=== PATIENT | male | born 1965 | race Caucasian/White ===

== ENCOUNTER 2016-07-07 21:36 | Inpatient (IN) ==
[2016-07-07] MEDS ORDERED: Ipratropium/Albuterol Neb 3 ML IH ONE (21:50)
[2016-07-07 22:12] LABS: Basophils # 0.1 K/mcL (0.0-0.2); Eosinophils # 0.4 K/mcL (0.0-0.6); Eosinophils % 7.3 %; Hematocrit 46.3 % (37.5-50.1); Hemoglobin 16.2 g/dL (12.9-16.9); Immature Granulocytes % 0.2 % (0-4); Lymphocytes # 1.5 K/mcL (0.6-4.6); Lymphocytes % 26.3 %; Mean Corpuscular Hemoglobin 32.1 pg (28.0-33.3); Mean Corpuscular Volume 91.9 fL (83.0-100.0); Monocytes # 0.9 K/mcL (0.0-1.3); Monocytes % 16.2 %; Neutrophils # 2.7 K/mcL (1.6-8.9); Platelet Count 212 K/mcL (140-400); Red Blood Count 5.04 M/mcL (4.19-5.50); Red Cell Distribution Width 13.8 % (11.5-14.5)
[2016-07-07 22:21] LABS: BUN/Creatinine Ratio 4 (6-26); Blood Urea Nitrogen 2 mg/dL (8-26); Calcium 8.2 mg/dL (8.6-10.8); Carbon Dioxide 30 mEq/L (19-29); Chloride 86 mEq/L (98-109); Glucose 76 mg/dL (70-99); Osmolality,Calculated 261 (280-300); Potassium 2.6 mEq/L (3.5-4.5); Sodium 128 mEq/L (136-145); eGFR For African Americans > 60 (> 60); eGFR For Non-African Americans > 60 (> 60)
--- NOTE | 2016-07-07 22:31 | Emergency Department Note ---
Disposition Clinical Impression: Acute exacerbation of chronic obstructive airways disease, Lung cancer Disposition: Admitted As Inpatient Condition: Good Time of Disposition: 23:52 General Adult HPI - General Chief complaint: ED Shortness of Breath/Dyspnea Stated complaint: ANA Time Seen by Provider: 07/07/16 21:38 Source: patient Nursing Notes Reviewed: Yes Vital Signs Reviewed: Yes - History of Present Illness HPI Narrative: Male patient reporting a 2 week history of shortness of breath. States that he does have a cough but has had this cough for approximately 2 months. Does have a history of lung cancer. Last chemotherapy was unknown either 2 weeks or 1 month ago. He denies any productivity to his cough. He denies any fevers. He states he does take nebulizers and albuterol inhalers at home with no relief of the symptoms. Pain Scale: 0 - Related Data Home Medications Medication Instructions Recorded Confirmed Furosemide [Lasix] 20 mg PO DAILY 07/07/16 07/07/16 Loratadine [Allergy Relief] 10 mg PO DAILY 07/07/16 07/07/16 Prochlorperazine Maleate 10 mg PO Q8HR 07/07/16 07/07/16 [Compazine] Previous Rx's Medication Instructions Recorded Lactose-Reduced Food [Ensure Plus] 1 bottle PO TID #90 can 03/04/16 Sennosides [Senna] 2 tab PO DAILY #60 tablet 03/11/16 Lidocaine/Prilocaine CREAM [Emla] 5 gm TP DAILY #1 tube 03/20/16 Docusate [Colace] 100 mg PO BID #60 capsule 04/01/16 Pegfilgrastim [Neulasta (For 6 mg SQ ONCE #1 syringe 04/11/16 Outpatient Infusion)] Sodium Chloride 2 gm PO DAILY #60 tablet 05/01/16 Budesonide/Formoterol 80/4.5 1 puff IH BIDR 30 Days 06/23/16 [Symbicort 80/4.5] Ipratropium/Albuterol Neb [Duoneb] 3 ml IH Q6HR PRN 30 Days 06/23/16 Morphine Sulfate [Morphine Sulfate 30 mg PO BID #60 cpmp.24hr 06/23/16 ER] Ondansetron [Zofran] 4 mg PO Q8HR #90 tablet 06/23/16 Albuterol Sulfate [Albuterol 1 puff IH Q4H PRN #1 puff 06/26/16 Inhaler] Oxycodone HCl 15 mg PO Q4H PRN #90 tablet 07/03/16 Zolpidem [Ambien] 10 mg PO HS #30 tablet 07/03/16 Allergies Allergy/AdvReac Type Severity Reaction Status Date / Time No Known Allergies Allergy Verified 12/23/15 16:06 Review of Systems: Patient denies any fevers. He complains of shortness of breath for 2 weeks. He reports that he does have cough and as well as right-sided chest pain. He states he always has chest pain. He denies any fevers. He denies any rhinorrhea or sore throat. Denies any abdominal pain. He reports chronic nausea. He denies any vomiting or diarrhea. He denies any swelling in his extremities. He denies any pain in his calves. All systems ED: reviewed and negative except as stated. Past Medical History - Past Medical History Attestation: Yes The following information was validated with the patient. Source: patient Medical history: Reports: arthritis, cancer, COPD, other Surgical history: Reports: other Psychiatric history: Reports: no psych history - Social History Smoking Status: Current every day smoker Smokeless Tobacco Status: No Alcohol use: Reports: occasionally Drug use: Reports: none Physical Exam Patient appears in mild respiratory distress. His head is normocephalic atraumatic. Mucous membranes are moist. He has no rhinorrhea. There is no tonsillar exudates swelling or erythema. He has no occipital or supraclavicular lymphadenopathy or thyromegaly. He has right-sided cervical lymphadenopathy. He is complaining of a right-sided chest pain. His heart sounds are normal. His left lung sounds are diminished with no sounds heard in his right upper lobe And a faint wheeze heard in his distal lung. Right lung sounds are clear. He states this is chronic. He is also complaining of shortness of breath and a nonproductive cough is been going on for 2 weeks. Nauseated and is chronically nauseated. His abdomen is soft and nontender. There is no organomegaly. He has no extremity swelling. He denies any calf pain. He has good pedal pulses bilaterally. - General General appearance: alert, in no apparent distress - Head Head exam: atraumatic, normocephalic, normal inspection - Eye Eye exam: Present: normal appearance, PERRL, EOMI Course Course Narrative: Patient complains of shortness of breath. He does have diminished left lung rich. I do hear scant wheezing in his left lower lobe. Patient is a high risk for PE due to his history of lung cancer. I am concerned for this due to his decreased left lung sounds as well as no improvement with his DuoNeb and unremarkable chest x-ray. Patient denies any fevers. He states his cough is not productive. He states he has been having shortness of breath for about 2 weeks. He states this chest pain is constant is on the right side of his chest and is chronic. He states this has been going on for several months. Patient is a cancer patient has been receiving chemotherapy. He is not on any anticoagulation. We will do basic lab work as well as a CTA of his chest. He appears short of breath while he is sitting in bed. He does not generally wear oxygen at home. - Reevaluation(s) Reevaluation #1: Patient states it is time for his nightly oxycodone. He has brought his medication. Nursing staff will give him his nighttime oxycodone medication from his pill bottle. Time: 22:31 Reevaluation #2: Patient's CTA of chest showed lymphadenopathy that is occluding his left lower bronchus. We will admit patient. Time: 23:00 - Consultations Consultation #1: Spoke with Dr Moffett. She is agreeable that the Pt needs admitted and states that they will see him tomorrow. She is suggesting the Pt recieve prednisone. I agree with this and will order. Time: 23:41 Consultation #2: Dr Kendrick accepted Pt in stable condition. He is requesting the Pt recieve 60mg potassium by mouth. Time: 23:50 Vital Signs Temperature 98.7 F 07/07/16 21:38 Pulse Rate 88 07/07/16 21:38 Respiratory Rate 18 07/07/16 21:38 Blood Pressure 148/111 07/07/16 21:38 O2 Sat by Pulse Oximetry 98 07/07/16 21:38 Temperature 0 F L 07/08/16 03:39 Pulse Rate 67 07/08/16 02:25 Respiratory Rate 16 07/08/16 03:39 Blood Pressure 124/92 07/08/16 03:39 O2 Sat by Pulse Oximetry 92 L 07/08/16 02:25 Oxygen Delivery Oxygen Delivery Nasal Cannula Medical Decision Making - Medical Records Medical records reviewed: Yes I reviewed the patient's medical records. - Lab Data Lab results reviewed: Yes I reviewed the patient's lab results. Result diagrams: 07/07/16 22:03 07/07/16 22:03 Lab Results 07/07/16 07/07/16 07/07/16 Range/Units 22:03 22:03 22:03 WBC 5.5 (4.3-11.1) K/mcL RBC 5.04 (4.19-5.50) M/mcL Hgb 16.2 (12.9-16.9) g/dL Hct 46.3 (37.5-50.1) % MCV 91.9 (83.0-100.0) fL MCH 32.1 (28.0-33.3) pg MCHC 35.0 (31.6-35.5) g/dL RDW 13.8 (11.5-14.5) % Plt Count 212 (140-400) K/mcL MPV 8.0 L (9.4-12.4) fL Immature Gran % 0.2 (0-4) % Seg Neutrophils % 48.0 % Lymphocytes % 26.3 % Monocytes % 16.2 % Eosinophils % 7.3 % Basophils % 2.0 % Neutrophils # 2.7 (1.6-8.9) K/mcL Lymphocytes # 1.5 (0.6-4.6) K/mcL Monocytes # 0.9 (0.0-1.3) K/mcL Eosinophils # 0.4 (0.0-0.6) K/mcL Basophils # 0.1 (0.0-0.2) K/mcL Sodium 128 L (136-145) mEq/L Potassium 2.6 L (3.5-4.5) mEq/L Chloride 86 L (98-109) mEq/L Carbon Dioxide 30 H (19-29) mEq/L BUN 2 L (8-26) mg/dL Creatinine 0.57 L (0.72-1.25) mg/dL Est GFR ( Amer) > 60 (> 60) Est GFR (Non-Af Amer) > 60 (> 60) BUN/Creatinine Ratio 4 L (6-26) Glucose 76 (70-99) mg/dL Calculated Osmolality 261 L (280-300) Calcium 8.2 L (8.6-10.8) mg/dL Magnesium (1.6-2.6) mg/dL Troponin I 0.00 (0-0.03) ng/mL 07/07/16 Range/Units 22:03 WBC (4.3-11.1) K/mcL RBC (4.19-5.50) M/mcL Hgb (12.9-16.9) g/dL Hct (37.5-50.1) % MCV (83.0-100.0) fL MCH (28.0-33.3) pg MCHC (31.6-35.5) g/dL RDW (11.5-14.5) % Plt Count (140-400) K/mcL MPV (9.4-12.4) fL Immature Gran % (0-4) % Seg Neutrophils % % Lymphocytes % % Monocytes % % Eosinophils % % Basophils % % Neutrophils # (1.6-8.9) K/mcL Lymphocytes # (0.6-4.6) K/mcL Monocytes # (0.0-1.3) K/mcL Eosinophils # (0.0-0.6) K/mcL Basophils # (0.0-0.2) K/mcL Sodium (136-145) mEq/L Potassium (3.5-4.5) mEq/L Chloride (98-109) mEq/L Carbon Dioxide (19-29) mEq/L BUN (8-26) mg/dL Creatinine (0.72-1.25) mg/dL Est GFR ( Amer) (> 60) Est GFR (Non-Af Amer) (> 60) BUN/Creatinine Ratio (6-26) Glucose (70-99) mg/dL Calculated Osmolality (280-300) Calcium (8.6-10.8) mg/dL Magnesium 1.5 L (1.6-2.6) mg/dL Troponin I (0-0.03) ng/mL Pt K an d mag are low. We will replace. - Radiology Data Radiology results reviewed: Yes I reviewed the patient's radiology results. - EKG Data EKG #1 EKG attestation: Yes I reviewed and interpreted this EKG. EKG results narrative: Normal sinus rhythm and rate is 74. AK interval is 191. QRS duration is 96. QT is 396. QTC is 429. He does have new inversion of his T-wave in V2. This is the only significant change from prior EKG dated 01/16/2016. Attestation Statement - Attestation Attestation: For this encounter, I have reviewed the resident, PLUMBING MANAGER, or PA documentation, treatment plan, and medical decision making; and I have had face to face time with this patient. 21-year-old male presents with difficulty in breathing which has been increasing over the past 2 weeks. History of metastatic lung cancer and has had similar episodes of difficulty breathing in the past. Patient has a history of COPD and has been using his inhaler more often at home. Patient denies fever, chills, nausea, vomiting, diarrhea. Patient has chest pain to the left lateral chest which is chronic however he does state that it has become worse than normal. On physical exam the patient had significantly decreased breath sounds to the left upper and lower lungs. Patient's difficulty in breathing improved mildly after breathing treatment. CT of the abdomen shows compression of the left bronchus from mass which explains his decreased breath sounds. Patient will be admitted to the hospital for further care and evaluation of likely COPD exacerbation and evaluation of his worsening cancer.
[2016-07-07] MEDS ORDERED: Magnesium Sulfate 1 GM in D5% in Water 100 ML IVPB ONE (23:22)
[2016-07-07] MEDS ORDERED: predniSONE 20 MG TABLET PO ONE (23:40)
[2016-07-07] MEDS ORDERED: Potassium Chloride Elixir 20 MEQ/15 ML UDC PO STA (23:49)
[2016-07-08] MEDS ORDERED: Albuterol 2.5 MG/3 ML NEBULIZER IH PRN (01:00)
[2016-07-08] MEDS ORDERED: Ondansetron 4 MG/2 ML VIAL IVP PRN (01:01)
[2016-07-08] MEDS ORDERED: Naloxone 0.4 MG/ML INJ IVP PRN (01:01)
--- NOTE | 2016-07-08 04:01 | Internal Med History&Physical ---
Date of Encounter: 07/08/16 Time of Encounter: 00:45 Internal Medicine - H&P: HPI Chief complaint: SOB for couple of weeks. Admitted From: Emergency Dept Plans for Post Hospital Care: Home History of present illness: Mr. Clemens is a 51 year old male with metatstic lung disease presents with progressive shortness of breath, worse the past 2 weeks. Associated with cough. He hemoptysis, minimal weight change. He is under care at the Cancer center, his last chemotherapy was 3 weeks ago. He uses inhalers and nebulizers. CT chest done to evaluate shortness of breat reports a hilar mass causing local effect and wrapping around the bronchus. He is FULL CODE as per discussion and nominates his mother, Evita CLEMENS as his NOK/POA. He is already under care at the Cancer center. Medical history: Reports: arthritis, lung cancer, COPD, other Surgical history: Reports: other Psychiatric history: Reports: no psych history Smoking Status: Current every day smoker 1ppd Smokeless Tobacco Status: No Alcohol use: Reports: occasionally Drug use: Reports: none Family hx: COPD/emphysema, HTN, CAD/NH, athritis, DM2, CVA. Vital Signs Temperature 98.7 F 07/07/16 21:38 Pulse Rate 88 07/07/16 21:38 Respiratory Rate 18 07/07/16 21:38 Blood Pressure 148/111 07/07/16 21:38 O2 Sat by Pulse Oximetry 98 07/07/16 21:38 Temperature 0 F L 07/08/16 03:39 Pulse Rate 67 07/08/16 02:25 Respiratory Rate 16 07/08/16 03:39 Blood Pressure 124/92 07/08/16 03:39 O2 Sat by Pulse Oximetry 92 L 07/08/16 02:25 Not in distress, not pale, anicteric, afebrile,acyanotic, nicotine odor. HEENT: Trachea is central, no cervical or jugular lymphadenopathy, no exophthalmus, no nystagmus. Chest: monophonic wheezing on the left. Diminished air entry over same Heart: rrr, hs1/2 Abdomen: soft, non-tender, no masses. MANUAL PLATE FILLER: aao x 3, no focal SKIN: No active skin lesion 07/07/16 22:03 Lab Results 07/07/16 07/07/16 07/07/16 Range/Units 22:03 22:03 22:03 WBC 5.5 (4.3-11.1) K/mcL RBC 5.04 (4.19-5.50) M/mcL Hgb 16.2 (12.9-16.9) g/dL Hct 46.3 (37.5-50.1) % MCV 91.9 (83.0-100.0) fL MCH 32.1 (28.0-33.3) pg MCHC 35.0 (31.6-35.5) g/dL RDW 13.8 (11.5-14.5) % Plt Count 212 (140-400) K/mcL MPV 8.0 L (9.4-12.4) fL Immature Gran % 0.2 (0-4) % Seg Neutrophils % 48.0 % Lymphocytes % 26.3 % Monocytes % 16.2 % Eosinophils % 7.3 % Basophils % 2.0 % Neutrophils # 2.7 (1.6-8.9) K/mcL Lymphocytes # 1.5 (0.6-4.6) K/mcL Monocytes # 0.9 (0.0-1.3) K/mcL Eosinophils # 0.4 (0.0-0.6) K/mcL Basophils # 0.1 (0.0-0.2) K/mcL Sodium 128 L (136-145) mEq/L Potassium 2.6 L (3.5-4.5) mEq/L Chloride 86 L (98-109) mEq/L Carbon Dioxide 30 H (19-29) mEq/L BUN 2 L (8-26) mg/dL Creatinine 0.57 L (0.72-1.25) mg/dL Est GFR ( Amer) > 60 (> 60) Est GFR (Non-Af Amer) > 60 (> 60) BUN/Creatinine Ratio 4 L (6-26) Glucose 76 (70-99) mg/dL Calculated Osmolality 261 L (280-300) Calcium 8.2 L (8.6-10.8) mg/dL Magnesium (1.6-2.6) mg/dL Troponin I 0.00 (0-0.03) ng/mL 07/07/16 Range/Units 22:03 WBC (4.3-11.1) K/mcL RBC (4.19-5.50) M/mcL Hgb (12.9-16.9) g/dL Hct (37.5-50.1) % MCV (83.0-100.0) fL MCH (28.0-33.3) pg MCHC (31.6-35.5) g/dL RDW (11.5-14.5) % Plt Count (140-400) K/mcL MPV (9.4-12.4) fL Immature Gran % (0-4) % Seg Neutrophils % % Lymphocytes % % Monocytes % % Eosinophils % % Basophils % % Neutrophils # (1.6-8.9) K/mcL Lymphocytes # (0.6-4.6) K/mcL Monocytes # (0.0-1.3) K/mcL Eosinophils # (0.0-0.6) K/mcL Basophils # (0.0-0.2) K/mcL Sodium (136-145) mEq/L Potassium (3.5-4.5) mEq/L Chloride (98-109) mEq/L Carbon Dioxide (19-29) mEq/L BUN (8-26) mg/dL Creatinine (0.72-1.25) mg/dL Est GFR ( Amer) (> 60) Est GFR (Non-Af Amer) (> 60) BUN/Creatinine Ratio (6-26) Glucose (70-99) mg/dL Calculated Osmolality (280-300) Calcium (8.6-10.8) mg/dL Magnesium 1.5 L (1.6-2.6) mg/dL Troponin I (0-0.03) ng/mL EKG: Normal sinus rhythm and 74. normal interval, normal axis, essentially unchanged rom EKG of 01/16/2016. CT chest: OBSTUCTIVE HILAR LYMPHADENOPATHY ENCASING THE LEFT MAIN BROCHUS AND OCCLUDING LEFT LOWER LOBE BRONCHUS IMP Shortness of breath Locally advanced lung cancer Bronchial obstruction related to hilar lymphadenopathy Back-ground COPD Moderate to severe hypokalemia, mild hypomagnesemia, hyponatremia IMP Admit Bronchodilator, IV Solumedrol Consult boatswain mate and oncology May benefit from radiation therapy to shrink mass. endobronchial stenting may also be of palliative benefit. Correct electrolytes abnormalities. Continue other medications of chronic morbidities DVT prophylaxis Past Med Surg Social Fam HX - Past Medical History Medical history: arthritis, cancer, COPD, other Psychiatric history: no psych history - Past Surgical History Surgical History: other - Social History Smoking Status: Current every day smoker Smokeless Tobacco Status: No Alcohol use: occasionally Drug use: none - Family History Father Hx Family Cardiac Disorders: Yes Brother Living Status: Internal Medicine - H&P: Meds Lactose-Reduced Food [Ensure Plus] 1 bottle PO TID #90 can 03/04/16 [Rx] Sennosides [Senna] 2 tab PO DAILY #60 tablet 03/11/16 [Rx] Lidocaine/Prilocaine CREAM [Emla] 5 gm TP DAILY #1 tube 03/20/16 [Rx] Docusate [Colace] 100 mg PO BID #60 capsule 04/01/16 [Rx] Pegfilgrastim [Neulasta (For Outpatient Infusion)] 6 mg SQ ONCE #1 syringe 04/11 [Rx] Sodium Chloride 2 gm PO DAILY #60 tablet 05/01/16 [Rx] Budesonide/Formoterol 80/4.5 [Symbicort 80/4.5] 1 puff IH BIDR 30 Days [Rx] Ipratropium/Albuterol Neb [Duoneb] 3 ml IH Q6HR PRN 30 Days 06/23/16 [Rx] Morphine Sulfate [Morphine Sulfate ER] 30 mg PO BID #60 cpmp.24hr 06/23/16 [Rx] Ondansetron [Zofran] 4 mg PO Q8HR #90 tablet 06/23/16 [Rx] Albuterol Sulfate [Albuterol Inhaler] 1 puff IH Q4H PRN #1 puff 06/26/16 [Rx] Oxycodone HCl 15 mg PO Q4H PRN #90 tablet 07/03/16 [Rx] Zolpidem [Ambien] 10 mg PO HS #30 tablet 07/03/16 [Rx] Furosemide [Lasix] 20 mg PO DAILY 07/07/16 [History] Loratadine [Allergy Relief] 10 mg PO DAILY 07/07/16 [History] Prochlorperazine Maleate [Compazine] 10 mg PO Q8HR 07/07/16 [History] Ciprofloxacin [Cipro] 500 mg PO BID #6 tablet 01/05/17 [Rx] Levofloxacin 750 mg PO DAILY #5 tablet 07/10/16 [Rx] PredniSONE [Prednisone] 10 mg PO DAILY #40 tab.ds.pk 07/10/16 [Rx] PredniSONE [Prednisone] 50 mg PO DAILY #5 tablet 07/10/16 [Rx] Allergies No Known Allergies Allergy (Verified 12/23/15 16:06) All Systems PM: A 10-system review of systems was performed and is negative for pertinent findings except as documented above in the HPI. - Constitutional Vitals: Temp Pulse Resp BP Pulse Ox 0 F L 67 16 124/92 92 L 07/08/16 03:39 07/08/16 02:25 07/08/16 03:39 07/08/16 03:39 07/08/16 02:25 Internal Med - H&P Results - Labs CBC & Chem 7: 07/10/16 04:30 07/10/16 04:30
[2016-07-08] MEDS: Ipratropium/Albuterol Neb 3 ML IH SCH ×4 (04:11→22:39)
[2016-07-08] MEDS: MethylPREDNISolone 40 MG/ML VIAL IVP SCH ×2 (05:38→18:03)
[2016-07-08] MEDS: Ringers Solution, Lactated 1,000 ML IVC SCH ×4 (05:39→21:38)
[2016-07-08] MEDS ORDERED: NON-FORMULARY MEDICATION 1 EACH EACH (Lactose-Reduced Food [Ensure Plus] 1 BOTTLE) PO SCH (09:00)
--- NOTE | 2016-07-08 09:06 | Internal Med Progress Note ---
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 One round of chemo to date. To begin next round soon. Radiation today at [facility] Oncology consulted Pulm consulted: May be taken for bronchoscopy for possible balloon dilatation. Qualifiers: Laterality: unspecified laterality Lung location: unspecified part of lung Qualified Code(s): C34.90 - Malignant neoplasm of unspecified part of unspecified bronchus or lung (3) Hypomagnesemia Current Visit: Yes Status: Acute Assessment and plan: Mag 1.5 on admission 1 gm mag sulfate given in ED check mag in am (4) Hyponatremia Current Visit: No Status: Acute Assessment and plan: Na+ 128 adenosquamous lung cx baseline Na+ 125-130 IV LR monitor bmp (5) Hypokalemia Current Visit: Yes Status: Acute Assessment and plan: K+ 2.6 in ED 60 meq PO given in ED 20 meq IV given in ED likely 2/2 hypomagnesemia replete if K+<3.5 bmp in am (6) DVT prophylaxis Current Visit: No Status: Acute Assessment and plan: pharmacologic anticoagulation with heparin subq BID SCD's - Subjective Interval history: Patient seen and examined. He has a history of lung cancer, COPD (still smoking ). Patient has had increased dyspnea over the past [address] scan revealed Bulky mediastinal/left hilar lymphadenopathy encases the left main bronchus and occludes the left lower lobe bronchi. He is afebrile, normotensive, without tachycardia or tachypnea. Requiring 3 L of oxygen by nasal cannula. It was discussed with pulmonology and oncology and he will go for radiation this afternoon. If he does not have improvement in his breathing he will likely go to bronchoscopy tomorrow. - Constitutional Vitals: Temp Pulse Resp BP Pulse Ox 98.1 F 75 17 144/92 94 L 07/08/16 07:12 07/08/16 07:12 07/08/16 07:12 07/08/16 07:12 07/08/16 07:12 General appearance: Present: mild distress, A&O X 3 - Head Head exam: Absent: normal inspection (alopecia) - Eye Eye exam: Present: PERRL, conjuntiva pink, sclera anicteric - Neck Neck exam general surgery: Present: supple, trachea midline. Absent: lymphadenopathy - Respiratory Respiratory exam: Present: rhonchi, wheezes. Absent: CTAB, stridor - Cardiovascular Cardiovascular exam: Present: RRR, +S1, +S2 - GI/Abdominal GI/Abdominal exam: Present: normal bowel sounds, soft, no peritoneal signs. Absent: distended, tenderness - Neurological Exam Neurological exam: Present: oriented X3, no focal deficits. Absent: facial droop, speech deficit Internal Medicine: Result - Labs CBC & Chem 7: 07/07/16 22:03 07/07/16 22:03 Consult Discharge Plan - Plan Referrals: Juma French DO [Primary Care Provider] - <Xander Louie - Last Filed: 07/08/16 18:51> Date of Encounter: 07/08/16 Time of Encounter: 13:17 - Constitutional Vitals: Temp Pulse Resp BP Pulse Ox 98.1 F 75 17 144/92 94 L 07/08/16 07:12 07/08/16 07:12 07/08/16 07:12 07/08/16 07:12 07/08/16 07:12 Internal Medicine: Result - Labs CBC & Chem 7: 07/07/16 22:03 07/07/16 22:03 - Attending Attestation I examined this patient and my medical decision-making was reviewed with the RIBBON LAPPER TENDER/PA/Advanced Practice Nurse/Resident Physician. I agree with the documented findings, disposition and treatment plan as described except to the extent set forth below. - seen and examined. - will treat as COPD exacerbation. - will follow recommendations from Pulmonary, Oncology and CTS ( non urgent) - has RT scheduled today - Discussed with CTS: no active CTS issue and we will cancel the consult ( CTS agree with the same) - Home soon and follow up with PCP.
[2016-07-08] MEDS: Ondansetron ODT 4 MG TAB.RAPDIS PO SCH ×3 (09:34→23:45)
[2016-07-08] MEDS: Loratadine 10 MG TABLET PO SCH (09:34)
[2016-07-08] MEDS: Budesonide/Formoterol 80/4.5 MDI IH SCH ×2 (09:56→22:39)
[2016-07-08] MEDS ORDERED: Vancomycin 1,000 MG in D5% in Water 250 ML IVPB SCH (10:00)
[2016-07-08] MEDS: Piperacillin/Tazobactam 3.375 GM in D5% in Water (Mini-Bag+) 100 ML IVPB SCH ×2 (10:09→18:03)
[2016-07-08] MEDS: Furosemide 20 MG TABLET PO SCH (10:23)
[2016-07-08] MEDS: Sennosides 8.6 MG TABLET PO SCH (10:24)
[2016-07-08] MEDS: *HR* Morphine Sulfate SR (12 HR) 30 MG TABLET.ER PO SCH ×2 (10:24→21:35)
[2016-07-08] MEDS: Vancomycin 1,000 MG in D5% in Water 250 ML IVPB SCH ×2 (10:30→21:36)
[2016-07-08] MEDS: Levofloxacin 500 MG/100 ML 500 MG/100 ML BAG IVPB SCH (10:31)
--- NOTE | 2016-07-08 11:45 | Pulmonology Consult Note ---
<Raffaele Srivastava - Last Filed: 07/08/16 13:08> Date of Encounter: 07/08/16 Time of Encounter: 11:43 Assessment and Plan (1) Mass of lung Current Visit: No Status: Chronic CT scan shows bulky lung mass with external compression of the left mainstem bronchus. Chemotherapy has been initiated and there is a plan for radiation therapy in the near future. Given the compression of the left mainstem bronchus the patient would qualify for balloon dilatation at this time. We will hold off on placing a stent in the bronchus given that the patient will be starting radiation soon and this may shrink the tumor to the point that the stent could migrate and cause damage. This was discussed with the patient, including risks and benefits, and he was agreeable to proceed with bronchoscopy. We will plan for bronchoscopy with airway inspection and likely balloon dilatation at this time. Once the patient has received further chemotherapy and radiation therapy for his cancer, if there is still narrowing of the left mainstem bronchus placement of a stent can be revisited at that time. This case was discussed with the patient's oncologist and the patient's radiation oncologist. Patient will be kept nothing by mouth for the procedure. 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 Patient states his shortness of breath has been gradually been getting worse over the last several weeks, particularly worse over the last couple days caused him to come to the hospital. He also reports a cough and he feels like he has mucus but is unable to bring anything up. Otherwise he feels a generalized malaise and gradual decline in his overall health. He denies fever, chills, chest pain, hemoptysis , nausea, vomiting, diarrhea. Past Med Surg Social Fam HX - Past Medical History Medical history: arthritis, cancer, COPD, other Psychiatric history: no psych history - Past Surgical History Surgical History: other - Social History Smoking Status: Current every day smoker Smokeless Tobacco Status: No Alcohol use: occasionally Drug use: none - Family History Father Family Member Ethnicity: Non- Age at : 65 Cause of : COPD, Lung cancer Hx Family Cardiac Disorders: Yes Hx Family Respiratory Disorders: Yes (COPD) Hx Family Cancer: Yes (Lung cancer,) Hx Family GI Disorders: No Hx Family Genitourinary Disorders: No Hx Family Endocrine Disorder: No Hx Family Musculoskeletal Disorders: No Hx Family Neuromuscular Disorders: No Hx Family Neurologic Disorders: No Hx Family HEENT Disorders: No Hx Family Autoimmune Disorders: No Hx Family Reproductive Disorders: No Hx Family Psychosocial Disorders: No Hx Family Medical Disorders: No Brother Living Status: Medications and Allergies Lactose-Reduced Food [Ensure Plus] 1 bottle PO TID #90 can 03/04/16 [Rx] Sennosides [Senna] 2 tab PO DAILY #60 tablet 03/11/16 [Rx] Lidocaine/Prilocaine CREAM [Emla] 5 gm TP DAILY #1 tube 03/20/16 [Rx] Docusate [Colace] 100 mg PO BID #60 capsule 04/01/16 [Rx] Pegfilgrastim [Neulasta (For Outpatient Infusion)] 6 mg SQ ONCE #1 syringe 04/11 [Rx] Sodium Chloride 2 gm PO DAILY #60 tablet 05/01/16 [Rx] Budesonide/Formoterol 80/4.5 [Symbicort 80/4.5] 1 puff IH BIDR 30 Days [Rx] Ipratropium/Albuterol Neb [Duoneb] 3 ml IH Q6HR PRN 30 Days 06/23/16 [Rx] Morphine Sulfate [Morphine Sulfate ER] 30 mg PO BID #60 cpmp.24hr 06/23/16 [Rx] Ondansetron [Zofran] 4 mg PO Q8HR #90 tablet 06/23/16 [Rx] Albuterol Sulfate [Albuterol Inhaler] 1 puff IH Q4H PRN #1 puff 06/26/16 [Rx] Oxycodone HCl 15 mg PO Q4H PRN #90 tablet 07/03/16 [Rx] Zolpidem [Ambien] 10 mg PO HS #30 tablet 07/03/16 [Rx] Furosemide [Lasix] 20 mg PO DAILY 07/07/16 [History] Loratadine [Allergy Relief] 10 mg PO DAILY 07/07/16 [History] Prochlorperazine Maleate [Compazine] 10 mg PO Q8HR 07/07/16 [History] Allergies No Known Allergies Allergy (Verified 12/23/15 16:06) All Systems: A 10-system review of systems was performed and is negative for pertinent findings except as documented above in the HPI. - Constitutional Constitutional: as per HPI - EENT Nose, mouth and throat: no sore throat, no throat swelling - Cardiovascular Cardiovascular: as per HPI - Respiratory Respiratory: as per HPI - Gastrointestinal Gastrointestinal: as per HPI Physical Examination Vital Signs: Vital Signs, Last 4 Hours Resp BP Pulse Ox 07/08/16 10:02 17 144/92 93 L General appearance: no acute distress ENT: oropharynx moist Effort: normal Auscultation: left: diminished breath sounds Cardiovascular: regular rate and rhythm Gastrointestinal: normoactive bowel sounds, soft, non-tender, non-distended Extremities: no cyanosis, no edema, no clubbing normal mental status, non-focal exam Results - Laboratory Findings CBC and BMP: 07/07/16 22:03 07/07/16 22:03 Abnormal lab findings: Abnormal lab results MPV 8.0 fL (9.4-12.4) L 07/07/16 22:03 Sodium 128 mEq/L (136-145) L 07/07/16 22:03 Potassium 2.6 mEq/L (3.5-4.5) L 07/07/16 22:03 Chloride 86 mEq/L (98-109) L 07/07/16 22:03 Carbon Dioxide 30 mEq/L (19-29) H 07/07/16 22:03 BUN 2 mg/dL (8-26) L 07/07/16 22:03 Creatinine 0.57 mg/dL (0.72-1.25) L 07/07/16 22:03 BUN/Creatinine Ratio 4 (6-26) L 07/07/16 22:03 POC Glucose 140 (58-89) H 07/08/16 07:16 Calculated Osmolality 261 (280-300) L 07/07/16 22:03 Calcium 8.2 mg/dL (8.6-10.8) L 07/07/16 22:03 Magnesium 1.5 mg/dL (1.6-2.6) L 07/07/16 22:03 Consult Discharge Plan - Plan Referrals: Juma French DO [Primary Care Provider] - <Ellie Fleming Chinmay - Last Filed: 07/08/16 14:13> Date of Encounter: 07/08/16 All Systems: A 10-system review of systems was performed and is negative for pertinent findings except as documented above in the HPI. Physical Examination Vital Signs: Vital Signs, Last 4 Hours Temp Pulse Resp BP Pulse Ox 07/08/16 11:49 98.2 F 73 14 142/86 94 L Results - Laboratory Findings CBC and BMP: 07/07/16 22:03 07/07/16 22:03 Abnormal lab findings: Abnormal lab results MPV 8.0 fL (9.4-12.4) L 07/07/16 22:03 Sodium 128 mEq/L (136-145) L 07/07/16 22:03 Potassium 2.6 mEq/L (3.5-4.5) L 07/07/16 22:03 Chloride 86 mEq/L (98-109) L 07/07/16 22:03 Carbon Dioxide 30 mEq/L (19-29) H 07/07/16 22:03 BUN 2 mg/dL (8-26) L 07/07/16 22:03 Creatinine 0.57 mg/dL (0.72-1.25) L 07/07/16 22:03 BUN/Creatinine Ratio 4 (6-26) L 07/07/16 22:03 POC Glucose 192 (58-89) H 07/08/16 11:54 Calculated Osmolality 261 (280-300) L 07/07/16 22:03 Calcium 8.2 mg/dL (8.6-10.8) L 07/07/16 22:03 Magnesium 1.5 mg/dL (1.6-2.6) L 07/07/16 22:03 - Attending Attestation I examined this patient and my medical decision-making was reviewed with the ALL AROUND GEAR MACHINE OPERATOR/PA/Advanced Practice Nurse/Resident Physician. I agree with the documented findings, disposition and treatment plan as described except to the extent set forth below. Patient seen and examined. Labs, radiology, chart personally reviewed. Agree with resident's history and physical, assessment, plan with following comments: ASSET ANALYST: Patient follows commands, Pulmonary: Acceptable oxygenation and ventilation. Reviewed his CT chest then communicated with oncology team, I agree it is better to wait for radiation therapy first, however airway inspection and BAL to evaluate any infection to de -escalate antibiotics is recommended and this is explained to patient with all the risks, alternatives, and benefits of the procedure and he agreed. Also, balloon dilatation might help as well. Cardiovascular: stable Heme: Oncology follow up. This is discussed with primary team and thank you for the consult. Will continue follow up.
--- NOTE | 2016-07-08 14:32 | Electrocardiograph Report ---
[facility] Test Date: 2016-07-07 Pat Name: Ashok Locke Department: 105 Room: 2A13 Gender: M Dry Pan Feeder: EDMAR : 1965 Requested By: Laurie Major Order Number: [id number] Reading MD: Brayan Lord Measurements Intervals [place] Rate: 78 P: 75 VT: 191 QRS: -20 QRSD: 96 T: 43 QT: 396 QTc: 429 Interpretive Statements SINUS RHYTHM POSSIBLE LEFT ATRIAL ENLARGEMENT MODERATE T-WAVE ABNORMALITY, CONSIDER ANTERIOR ISCHEMIA Electronically Signed On 07-08-16 14:30:47 EST by Brayan Lord
[2016-07-08] MEDS ORDERED: Lidocaine Viscous Oral Soln 15 ML SOLUTION ONE (15:20)
--- NOTE | 2016-07-08 15:36 | Anesthesia Evaluation PreOp ---
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) Drug use: none Medications and Allergies Lactose-Reduced Food [Ensure Plus] 1 bottle PO TID #90 can 03/04/16 [Rx] Sennosides [Senna] 2 tab PO DAILY #60 tablet 03/11/16 [Rx] Lidocaine/Prilocaine CREAM [Emla] 5 gm TP DAILY #1 tube 03/20/16 [Rx] Docusate [Colace] 100 mg PO BID #60 capsule 04/01/16 [Rx] Pegfilgrastim [Neulasta (For Outpatient Infusion)] 6 mg SQ ONCE #1 syringe 04/11 [Rx] Sodium Chloride 2 gm PO DAILY #60 tablet 05/01/16 [Rx] Budesonide/Formoterol 80/4.5 [Symbicort 80/4.5] 1 puff IH BIDR 30 Days [Rx] Ipratropium/Albuterol Neb [Duoneb] 3 ml IH Q6HR PRN 30 Days 06/23/16 [Rx] Morphine Sulfate [Morphine Sulfate ER] 30 mg PO BID #60 cpmp.24hr 06/23/16 [Rx] Ondansetron [Zofran] 4 mg PO Q8HR #90 tablet 06/23/16 [Rx] Albuterol Sulfate [Albuterol Inhaler] 1 puff IH Q4H PRN #1 puff 06/26/16 [Rx] Oxycodone HCl 15 mg PO Q4H PRN #90 tablet 07/03/16 [Rx] Zolpidem [Ambien] 10 mg PO HS #30 tablet 07/03/16 [Rx] Furosemide [Lasix] 20 mg PO DAILY 07/07/16 [History] Loratadine [Allergy Relief] 10 mg PO DAILY 07/07/16 [History] Prochlorperazine Maleate [Compazine] 10 mg PO Q8HR 07/07/16 [History] Allergies No Known Allergies Allergy (Verified 12/23/15 16:06) - Meds/Allergy Pre-op Review Medications Reviewed: Yes Allergies Reviewed: Yes Beta Blockers on Current Med List: No Anesthesia Results - Labs 07/07/16 22:03 07/07/16 22:03 - Imaging EKG: report reviewed (07/07/2016 SR, possible LAE, moderate T wave abnormality) Additional studies: 10/02/2014 Stress Impression: Perfusion imaging was negative for ischemia or infarct. Low level exercise ECG was negative for ischemia. Exercise capacity was fair. Normal hemodynamic response. Patient had no chest pain with stress. No arrhythmias noted with stress. Gated EF = 58%. The LV is not dilated. There is no evidence of TID. Anesthesia Exam Vital Signs/O2 Sat, Most Current Temp Pulse Resp BP Pulse Ox 98.2 F 73 14 142/86 94 L 07/08/16 11:49 07/08/16 11:49 07/08/16 11:49 07/08/16 11:49 07/08/16 11:49 Height: 5'8''/1.73 m Weight: 140 lbs/63.5 kg NPO (# of Hours): 8 Pain Scale: 7 Pain Scale Used: Numeric (1 - 10) - HEENT Pupil (Motor): EOMI Mallampati: II Teeth: Edentulous Denture Type: Upper: Complete, Lower: Complete Oral Opening: Greater than 3 - PARKING ENFORCEMENT MANAGER LOC: Oriented PARKING ENFORCEMENT MANAGER Motor: Normal RUE, Normal LUE, Normal RLE, Normal LLE, Normal Face PARKING ENFORCEMENT MANAGER Sensory: Normal: RUE, LUE, RLE, LLE, Face - Cardiac Rhythm: Regular Murmur: None - Pulmonary Breath Sounds: bilateral Rhonchi Respiratory Effort: Symmetrical Anesthesia Assess/Plan ASA Score: 4 Modified [place] Scale for Level of Consciousness: Cooperative, oriented, and tranquil Anesthetic Plan: General Monitoring Plan: Standard Monitors Recovery Plan: PACU
[2016-07-08] MEDS ORDERED: *HR* Succinylcholine 200 MG/10 ML VIAL IVP ONE (15:47)
[2016-07-08] MEDS ORDERED: Lidocaine -MPF 2% 2 ML VIAL ONE (15:47)
[2016-07-08] MEDS ORDERED: Ondansetron 4 MG/2 ML VIAL ONE (15:47)
[2016-07-08] MEDS ORDERED: Dexamethasone 4 MG/ML VIAL ONE ×2 (15:47→16:25)
[2016-07-08] MEDS ORDERED: *HR* Rocuronium Bromide 50 MG/5 ML VIAL ONE (15:47)
[2016-07-08] MEDS ORDERED: *HR* FentaNYL (PF) 100 MCG/2 ML VIAL ONE (15:47)
[2016-07-08] MEDS ORDERED: Lidocaine -MPF 4% 5 ML AMPUL ONE (15:47)
[2016-07-08] MEDS ORDERED: *HR* Propofol 200 MG/20 ML VIAL IVP ONE (15:47)
[2016-07-08] MEDS ORDERED: *HR* EPINEPHrine 1 MG/10 ML SYRINGE INTRATRACH PRN (16:20)
[2016-07-08] MEDS ORDERED: Ondansetron 4 MG/2 ML VIAL IVP ONE (16:35)
[2016-07-08] MEDS ORDERED: *HR* Morphine 2 MG/ML SYRINGE IVP PRN (16:35)
[2016-07-08] MEDS ORDERED: Ringers Solution, Lactated 1,000 ML IVC SCH (16:45)
--- NOTE | 2016-07-08 17:17 | Anesthesia Evaluation Post Op ---
Date of Encounter: 07/08/16 Time of Encounter: 17:15 - Vital Signs Vital Signs: Vital Signs/O2 Sat, Most Current Temp Pulse Resp BP Pulse Ox 97.6 F 66 16 141/80 92 L 07/08/16 16:52 07/08/16 17:12 07/08/16 17:12 07/08/16 17:12 07/08/16 17:12 - Lungs Lungs: Clear Ascult./Percussion - Airway Airway: Non-obstructed - Cardiovascular Regular Rate - Mental Status Mental Status: Alert & Oriented, Answers Appropriately - Pain Pain Scale: 0 Pain Scale used: Numeric (1 - 10) - Nausea Vomiting Nausea Vomiting: Not Present - Hydration Hydration: Ice chips, Has not voided - Discharge PostOp Status: Transfer Patient to floor
--- NOTE | 2016-07-08 17:33 | Event Note ---
Date of Encounter: 07/08/16 Time of Encounter: 17:00 not able to evaluate patient as he was in procedure.
[2016-07-08] MEDS: *HR* Heparin 5,000 UNIT/ML VIAL SQ SCH (18:03)
[2016-07-08 21:20] LABS: Appearance of Body Fluid Cloudy (Clear)
[2016-07-08] MEDS: *HR* OxyCODONE Immed Rel 15 MG TABLET PO PRN (23:47)
[2016-07-09 04:00] LABS: Basophils % 0.1 %; Hematocrit 44.1 % (37.5-50.1); Hemoglobin 15.1 g/dL (12.9-16.9); Immature Granulocytes % 0.4 % (0-4); Lymphocytes # 0.8 K/mcL (0.6-4.6); Mean Corpuscular HGB Conc 34.2 g/dL (31.6-35.5); Mean Corpuscular Hemoglobin 32.1 pg (28.0-33.3); Mean Corpuscular Volume 93.8 fL (83.0-100.0); Mean Platelet Volume 8.8 fL (9.4-12.4); Monocytes # 0.6 K/mcL (0.0-1.3); Monocytes % 7.4 %; Neutrophils # 6.1 K/mcL (1.6-8.9); Platelet Count 194 K/mcL (140-400); Red Cell Distribution Width 13.5 % (11.5-14.5); Segmented Neutrophils % 81.1 %
[2016-07-09 04:15] LABS: BUN/Creatinine Ratio 13 (6-26); Blood Urea Nitrogen 8 mg/dL (8-26); Calcium 8.6 mg/dL (8.6-10.8); Carbon Dioxide 29 mEq/L (19-29); Chloride 93 mEq/L (98-109); Glucose 111 mg/dL (70-99); Magnesium 1.7 mg/dL (1.6-2.6); Osmolality,Calculated 273 (280-300); Phosphorous 3.2 mg/dL (2.3-4.7); Potassium 3.3 mEq/L (3.5-4.5); Sodium 132 mEq/L (136-145); eGFR For African Americans > 60 (> 60); eGFR For Non-African Americans > 60 (> 60)
[2016-07-09] MEDS: Ipratropium/Albuterol Neb 3 ML IH SCH ×4 (04:23→21:55)
[2016-07-09] MEDS: Piperacillin/Tazobactam 3.375 GM in D5% in Water (Mini-Bag+) 100 ML IVPB SCH ×2 (05:28→10:22)
[2016-07-09] MEDS: MethylPREDNISolone 40 MG/ML VIAL IVP SCH (06:24)
[2016-07-09] MEDS: *HR* Heparin 5,000 UNIT/ML VIAL SQ SCH ×2 (06:24→18:05)
--- NOTE | 2016-07-09 07:49 | Pulmonology Progress Note ---
<Raffaele Srivastava - Last Filed: 07/09/16 07:45> Date of Encounter: 07/09/16 Time of Encounter: 07:46 Assessment and Plan (1) Mass of lung Current Visit: No Status: Chronic Patient had bronchoscopy yesterday by balloon dilatation of the left mainstem bronchus. Patient had significant stenosis seen on bronchoscopy that was successfully dilated. On physical exam air movement to the left lower lobe appears improved. Continue bronchodilators. Patient will continue to have chemo and radiation. Patient will need outpatient follow-up with pulmonology and a repeat CT scan to evaluate tumor regression and compression of the left mainstem bronchus. If after chemotherapy and radiation treatments the patient continues to have compression he would be a good candidate for a bronchial stent. Subjective Principal diagnosis: Lung cancer Interval history: Patient seen and examined at bedside. Patient states he feels about the same. Breathing is mildly improved. He reports a nonproductive cough. Denies hemoptysis. Objective PUL Vital signs: Last Vital Signs Temp 97.9 F 07/09/16 04:59 Pulse 73 07/09/16 04:59 Resp 18 07/09/16 04:59 BP 158/89 07/09/16 04:59 Pulse Ox 95 07/09/16 04:59 General appearance: no acute distress ENT: oropharynx moist Auscultation: left: diminished breath sounds (Improved from yesterday) Cardiovascular: regular rate and rhythm Gastrointestinal: normoactive bowel sounds, soft, non-tender, non-distended Extremities: no cyanosis, no edema, no clubbing normal mental status, non-focal exam Results - Laboratory Findings CBC and BMP: 07/09/16 03:06 07/09/16 03:06 Abnormal lab findings: Abnormal lab results MPV 8.8 fL (9.4-12.4) L 07/09/16 03:06 Sodium 132 mEq/L (136-145) L 07/09/16 03:06 Potassium 3.3 mEq/L (3.5-4.5) L 07/09/16 03:06 Chloride 93 mEq/L (98-109) L 07/09/16 03:06 Creatinine 0.62 mg/dL (0.72-1.25) L 07/09/16 03:06 Glucose 111 mg/dL (70-99) H 07/09/16 03:06 POC Glucose 147 (58-89) H 07/08/16 21:21 Calculated Osmolality 273 (280-300) L 07/09/16 03:06 Fluid Appearance Cloudy (Clear) A 07/08/16 16:31 - Microbiology Findings Microbiology Findings: Microbiology, Last 48 Hours 07/08/16 16:31 Respiratory Culture - Preliminary Left Lower Lobe Lung No growth. 07/08/16 16:31 Gram Stain - Preliminary Left Lower Lobe Lung - Clinical Findings Intake & Output: Intake & Output 07/08/16 07/08/16 07/09/16 15:59 23:59 07:59 Intake Total 450 / 450 1350 / 1350 Balance 450 / 450 1350 / 1350 Weight 63.503 kg 61.292 kg Consult Discharge Plan - Plan Referrals: Juma French DO [Primary Care Provider] - (please call upon discharge... ) <Ellie Fleming - Last Filed: 07/09/16 12:40> Date of Encounter: 07/09/16 Objective PUL Vital signs: Last Vital Signs Temp 97.5 F L 07/09/16 10:54 Pulse 80 07/09/16 10:54 Resp 13 07/09/16 10:54 BP 148/84 07/09/16 10:54 Pulse Ox 98 07/09/16 10:54 Results - Laboratory Findings CBC and BMP: 07/09/16 03:06 07/09/16 03:06 Abnormal lab findings: Abnormal lab results MPV 8.8 fL (9.4-12.4) L 07/09/16 03:06 Sodium 132 mEq/L (136-145) L 07/09/16 03:06 Potassium 3.3 mEq/L (3.5-4.5) L 07/09/16 03:06 Chloride 93 mEq/L (98-109) L 07/09/16 03:06 Creatinine 0.62 mg/dL (0.72-1.25) L 07/09/16 03:06 Glucose 111 mg/dL (70-99) H 07/09/16 03:06 POC Glucose 147 (58-89) H 07/08/16 21:21 Calculated Osmolality 273 (280-300) L 07/09/16 03:06 Fluid Appearance Cloudy (Clear) A 07/08/16 16:31 - Microbiology Findings Microbiology Findings: Microbiology, Last 48 Hours 07/08/16 16:31 Respiratory Culture - Preliminary Left Lower Lobe Lung No growth. 07/08/16 16:31 Gram Stain - Preliminary Left Lower Lobe Lung - Clinical Findings Intake & Output: Intake & Output 07/08/16 07/09/16 07/09/16 23:59 07:59 15:59 Intake Total 1350 / 1350 1000 / 1000 100 / 100 Balance 1350 / 1350 1000 / 1000 100 / 100 Weight 63.503 kg 61.292 kg - Attending Attestation I examined this patient and my medical decision-making was reviewed with the HEALTH ADMINISTRATOR/PA/Advanced Practice Nurse/Resident Physician. I agree with the documented findings, disposition and treatment plan as described except to the extent set forth below. Patient seen and examined. Labs, radiology, chart personally reviewed. Agree with resident's history and physical, assessment, plan with following comments: PARTS ANALYST: Patient follows commands, Pulmonary: Acceptable oxygenation and ventilation and there is better air movement on examination. Discussed with primary team. Will follow up PRN. Thanks for the consult. Agree with radiation treatment and stent placement if no success with radiation to shrink the tumor.
[2016-07-09] MEDS ORDERED: Aminoglycoside Consult 1 EACH MC ONE (08:36)
[2016-07-09] MEDS: Ondansetron ODT 4 MG TAB.RAPDIS PO SCH ×2 (09:13→16:28)
[2016-07-09] MEDS: Sennosides 8.6 MG TABLET PO SCH (09:13)
[2016-07-09] MEDS: Furosemide 20 MG TABLET PO SCH (09:13)
[2016-07-09] MEDS: *HR* Morphine Sulfate SR (12 HR) 30 MG TABLET.ER PO SCH ×2 (09:13→20:16)
[2016-07-09] MEDS: Loratadine 10 MG TABLET PO SCH (09:13)
[2016-07-09] MEDS: Ringers Solution, Lactated 1,000 ML IVC SCH ×2 (09:14→20:59)
[2016-07-09] MEDS: Levofloxacin 500 MG/100 ML 500 MG/100 ML BAG IVPB SCH (09:14)
--- NOTE | 2016-07-09 09:29 | RAD Oncology Progress Note ---
Radiation Oncology Dictation Date of Service: 07/08/16 - Oncology History Comments: 51-year-old male with AJCC clinical stage IV non-small cell lung cancer. He is status post [facility] to his brain for limited metastatic disease. His disease progressed on chemotherapy. He now has symptoms from his chest disease including shortness of breath and discomfort. Further, he has progressed in his brain. We will plan to treat his chest at this time, as his brain metastases are asymptomatic. We will refer him to [facility] as an outpatient to treat his progressive brain disease. These are tiny lesions without significant associated edema. - Procedure Note Comments: CT Simulation and Treatment Planning Note Mr. Locke was brought into the CT Simulation suite and placed in the supine position. A custom vac lock device for arm positioning was created. For comfort, a knee sponge was used. 3D CT Simulation was required secondary to irregular shape of the target volume and close proximity to critical normal structures. Critical normal structures adjacent to the target volume include the following: heart, lungs, and spinal cord. [employer] software will be utilized to place an isocenter for treatment planning. This will be transferred to the lasers in the treatment room and will be used to sierra the patient for daily positioning. An AP/PA plan will be utilized to treat left hilar disease extending into the pulmonary vasculature with 3000 cGy in 10 fractions. Daily imaging will be required to insure adequate treatment of the target volume and avoidance of critical normal structures with cone-beam CT secondary to the following: close margin between target volume and critical structures and nature of current treatment field being adjacent to a previously treated field. We will align the daily imaging with simulation imaging daily with focus on the tanna and spine. This patient will require weekly monitoring in the form of on-treatment visits to assess for progression through treatment, ability to tolerate further treatment, and to assess for treatment-related side effects in order to manage them. Consent has been obtained, and the patient is amenable to treatment. The risks and benefits of radiotherapy have been explained, and the patient is agreeable to proceed. Thank you again for allowing us to participate in the care of this pleasant patient. Sincerely, Asim Washburn [place] [address]
[2016-07-09] MEDS: Vancomycin 1,000 MG in D5% in Water 250 ML IVPB SCH (10:21)
[2016-07-09] MEDS: *HR* OxyCODONE Immed Rel 15 MG TABLET PO PRN ×3 (10:29→21:45)
[2016-07-09] MEDS: Budesonide/Formoterol 80/4.5 MDI IH SCH ×2 (10:41→21:55)
--- NOTE | 2016-07-09 14:52 | Internal Med Progress Note ---
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 procedure was performed without complication. Status post bronchoscop patient oxygenation improved and hypoxia resolved patient currently satting 90% on room air. 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 duonebs IV levoflaxacin, zosyn, vanc (2days) Descalate to PO cipro 500mg BID try to qualify for home oxygen. 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 One round of chemo to date. To begin next round soon. radiation done yesterday and today Oncology following pulmonology following Qualifiers: Laterality: unspecified laterality Lung location: unspecified part of lung Qualified Code(s): C34.90 - Malignant neoplasm of unspecified part of unspecified bronchus or lung (4) Hypomagnesemia Current Visit: Yes Status: Acute Assessment and plan: Mag 1.5 on admission 1 gm mag sulfate given in ED magnesium with normal limits today replete as necessary recheck in AM (5) Hyponatremia Current Visit: No Status: Acute Assessment and plan: Na+ 128 yesterday,today 132 asymptomatic adenosquamous lung cx baseline Na+ 125-130 IV LR monitor bmp (6) Hypokalemia Current Visit: Yes Status: Acute Assessment and plan: K+ 2.6 in ED 60 meq PO given in ED 20 meq IV given in ED 40meq PO given today (07/09/15) for K+3.2 likely 2/2 hypomagnesemia replete if K+<3.5 bmp in am (7) DVT prophylaxis Current Visit: No Status: Acute Assessment and plan: pharmacologic anticoagulation with heparin subq BID SCD's - Subjective Interval history: Patient seen and examined. He has a history of lung cancer, COPD (still smoking ). Patient has had increased dyspnea over the past 2 weeks. Patient states he slept well overnight. Has no complaints this morning except for continued shortness of breath. States he feels the same as he did yesterday. He worked for radiation yesterday as well as bronchoscopy with ballooning of the left mainstem bronchus. He does not feel ready to go home today, would prefer to go home tomorrow. He would also like to see if you qualify for home oxygen. Denies any chest pain, abdominal pain and vomiting diarrhea. - Constitutional Vitals: Temp Pulse Resp BP Pulse Ox 97.5 F L 80 13 128/92 98 07/09/16 10:54 07/09/16 10:54 07/09/16 10:54 07/09/16 14:14 07/09/16 14:14 General appearance: Present: cooperative, A&O X 3, no acute distress - Head Head exam: Present: atraumatic, normocephalic. Absent: normal inspection ( alopecia) - Eye Eye exam: Present: PERRL, conjuntiva pink, sclera anicteric Pupils: Present: PERRL - Neck Neck exam general surgery: Present: full ROM, lymphadenopathy. Absent: tenderness - Respiratory Respiratory exam: Present: prolonged expiratory phase, wheezes. Absent: respiratory distress, rhonchi, stridor - Cardiovascular Cardiovascular exam: Present: RRR, +S1, +S2. Absent: diastolic murmur, gallop, rubs, systolic murmur - GI/Abdominal GI/Abdominal exam: Present: normal bowel sounds, soft, no peritoneal signs. Absent: distended, tenderness - Neurological Exam Neurological exam: Present: CN II-XII intact, oriented X3, no focal deficits. Absent: facial droop, speech deficit - Skin Skin exam: Present: dry, intact Internal Medicine: Result - Labs CBC & Chem 7: 07/09/16 03:06 07/09/16 03:06 Labs: Short CBC 07/09/16 Range/Units 03:06 WBC 7.5 (4.3-11.1) K/mcL Hgb 15.1 (12.9-16.9) g/dL Hct 44.1 (37.5-50.1) % Plt Count 194 (140-400) K/mcL Neutrophils # 6.1 (1.6-8.9) K/mcL BMP 07/09/16 03:06 Sodium 132 L Potassium 3.3 L Chloride 93 L Carbon Dioxide 29 BUN 8 Creatinine 0.62 L Glucose 111 H Calcium 8.6 Consult Discharge Plan - Plan Referrals: Juma French DO [Primary Care Provider] - (please call upon discharge... ) Asim Washburn MD [Partnered Physician] - 07/16/16 3:00 pm <Xander Louie - Last Filed: 07/09/16 18:35> Date of Encounter: 07/09/16 - Constitutional Vitals: Temp Pulse Resp BP Pulse Ox 97.9 F 79 16 147/87 99 07/09/16 16:57 07/09/16 16:57 07/09/16 16:57 07/09/16 16:57 07/09/16 16:57 Internal Medicine: Result - Labs CBC & Chem 7: 07/09/16 03:06 07/09/16 03:06 Labs: Short CBC 07/09/16 Range/Units 03:06 WBC 7.5 (4.3-11.1) K/mcL Hgb 15.1 (12.9-16.9) g/dL Hct 44.1 (37.5-50.1) % Plt Count 194 (140-400) K/mcL Neutrophils # 6.1 (1.6-8.9) K/mcL BMP 07/09/16 03:06 Sodium 132 L Potassium 3.3 L Chloride 93 L Carbon Dioxide 29 BUN 8 Creatinine 0.62 L Glucose 111 H Calcium 8.6 - Attending Attestation I examined this patient and my medical decision-making was reviewed with the TELEPHONE DIRECTORY DELIVERER/PA/Advanced Practice Nurse/Resident Physician. I agree with the documented findings, disposition and treatment plan as described except to the extent set forth below.
[2016-07-09] MEDS: predniSONE 20 MG TABLET PO SCH (16:29)
--- NOTE | 2016-07-09 18:26 | Oncology Inp Consult Note ---
Date of Encounter: 07/09/16 Time of Encounter: 12:00 Assessment and Plan (1) Lung cancer Status: Chronic Assessment and plan: Progression with mediastinal lymphadenopathy hilar adenopathy with occlusion of left main stem bronchus status post bronchoscopy consistent with extrinsic compression. He is to start lapatinib which will be held. Palliative radiation to the chest to improve shortness of breath. He is requiring home oxygen which should be continued. Plan 2 weeks of radiotherapy, he will continue after CyberKnife treatment off his recurrent brain lesions. Plan of care discussed with patient and mother in detail. He will return to my clinic after 1 wk or so of discharge from hospital Qualifiers: Laterality: unspecified laterality Lung location: unspecified part of lung Qualified Code(s): C34.90 - Malignant neoplasm of unspecified part of unspecified bronchus or lung - Data of Consult Requesting Physician: Xander Louie MD Primary Care Provider: Juma French, DO - Consult Narrative Reason for consult: lung cancer History of present illness: Mr. 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 Patient was to start on treatment with nivolumab subsequently every 2 weeks. Patient has experienced shortness of breath the last few days and asked for a prescription for oxygen. He denies any fever or cough symptoms. Has had chest and back pain currently on narcotics. Patient underwent CT imaging which was negative for pulmonary embolism bulky lymphadenopathy encasing pulmonary arteries bulky mediastinal left hilar lymphadenopathy occlusion of left main bronchus was noted. Patient underwent a bronchoscopy that showed extrinsic compression in the left mainstem bronchus culture centimeters were obtained. Bronchoalveolar lavage was performed. Patient is also seen by radiation oncology and has received chest radiation therapy for palliation. He is also developing brain metastatic disease for which he will be referred for CyberKnife treatment. Past Med Surg Social Fam HX - Past Medical History Medical history: arthritis, cancer, COPD, other Psychiatric history: no psych history - Past Surgical History Surgical History: other - Social History Smoking Status: Current every day smoker Packs per day: 1 Smokeless Tobacco Status: No Alcohol use: heavy Drug use: none - Family History Father Family Member Ethnicity: Non- Age at : 65 Cause of : COPD, Lung cancer Hx Family Cardiac Disorders: Yes Hx Family Respiratory Disorders: Yes (COPD) Hx Family Cancer: Yes (Lung cancer,) Hx Family GI Disorders: No Hx Family Genitourinary Disorders: No Hx Family Endocrine Disorder: No Hx Family Musculoskeletal Disorders: No Hx Family Neuromuscular Disorders: No Hx Family Neurologic Disorders: No Hx Family HEENT Disorders: No Hx Family Autoimmune Disorders: No Hx Family Reproductive Disorders: No Hx Family Psychosocial Disorders: No Hx Family Medical Disorders: No Brother Living Status: Medications and Allergies Lactose-Reduced Food [Ensure Plus] 1 bottle PO TID #90 can 03/04/16 [Rx] Sennosides [Senna] 2 tab PO DAILY #60 tablet 03/11/16 [Rx] Lidocaine/Prilocaine CREAM [Emla] 5 gm TP DAILY #1 tube 03/20/16 [Rx] Docusate [Colace] 100 mg PO BID #60 capsule 04/01/16 [Rx] Pegfilgrastim [Neulasta (For Outpatient Infusion)] 6 mg SQ ONCE #1 syringe 04/11 [Rx] Sodium Chloride 2 gm PO DAILY #60 tablet 05/01/16 [Rx] Budesonide/Formoterol 80/4.5 [Symbicort 80/4.5] 1 puff IH BIDR 30 Days [Rx] Ipratropium/Albuterol Neb [Duoneb] 3 ml IH Q6HR PRN 30 Days 06/23/16 [Rx] Morphine Sulfate [Morphine Sulfate ER] 30 mg PO BID #60 cpmp.24hr 06/23/16 [Rx] Ondansetron [Zofran] 4 mg PO Q8HR #90 tablet 06/23/16 [Rx] Albuterol Sulfate [Albuterol Inhaler] 1 puff IH Q4H PRN #1 puff 06/26/16 [Rx] Oxycodone HCl 15 mg PO Q4H PRN #90 tablet 07/03/16 [Rx] Zolpidem [Ambien] 10 mg PO HS #30 tablet 07/03/16 [Rx] Furosemide [Lasix] 20 mg PO DAILY 07/07/16 [History] Loratadine [Allergy Relief] 10 mg PO DAILY 07/07/16 [History] Prochlorperazine Maleate [Compazine] 10 mg PO Q8HR 07/07/16 [History] Allergies No Known Allergies Allergy (Verified 12/23/15 16:06) Review of systems: as in HPI Oncology - Exam - Constitutional Vitals: Temp Pulse Resp BP Pulse Ox 97.9 F 79 16 147/87 99 07/09/16 16:57 07/09/16 16:57 07/09/16 16:57 07/09/16 16:57 07/09/16 16:57 General appearance: thin Exam: on oxygen-mild distress - Head Head exam: Present: atraumatic, normal inspection - Eye Eye exam: Present: sclera anicteric - ENT ENT exam: Present: mucous membranes moist - Neck Neck exam: Present: full ROM Additional comments: rt neck adenopathy - Respiratory Respiratory exam: Present: CTAB, wheezes - Cardiovascular Cardiovascular exam: Present: +S1, +S2 - GI/Abdominal GI/Abdominal exam: Present: normal bowel sounds, soft - Extremities Exam Extremities exam: Present: normal inspection - Neurological Exam Neurological exam: Present: alert, CN II-XII intact, oriented X3 - Skin Skin exam: Present: normal color Oncology - Results - Labs Labs: Short CBC 07/09/16 Range/Units 03:06 WBC 7.5 (4.3-11.1) K/mcL Hgb 15.1 (12.9-16.9) g/dL Hct 44.1 (37.5-50.1) % Plt Count 194 (140-400) K/mcL Neutrophils # 6.1 (1.6-8.9) K/mcL BMP 07/09/16 03:06 Sodium 132 L Potassium 3.3 L Chloride 93 L Carbon Dioxide 29 BUN 8 Creatinine 0.62 L Glucose 111 H Calcium 8.6 - Imaging and Cardiology CT scan - chest Status: image reviewed by me Consult Discharge Plan - Plan Referrals: Juma French DO [Primary Care Provider] - (please call upon discharge... ) Asim Washburn MD [Partnered Physician] - 07/16/16 3:00 pm
[2016-07-10] MEDS: *HR* OxyCODONE Immed Rel 15 MG TABLET PO PRN ×2 (00:23→04:27)
[2016-07-10] MEDS: Ondansetron ODT 4 MG TAB.RAPDIS PO SCH ×2 (00:23→08:01)
[2016-07-10] MEDS: Ipratropium/Albuterol Neb 3 ML IH SCH ×2 (04:36→10:54)
[2016-07-10] MEDS: Ringers Solution, Lactated 1,000 ML IVC SCH ×2 (04:36→12:46)
[2016-07-10 04:40] LABS: Basophils % 0.1 %; Eosinophils % 0.1 %; Hematocrit 43.3 % (37.5-50.1); Hemoglobin 14.6 g/dL (12.9-16.9); Immature Granulocytes % 0.4 % (0-4); Lymphocytes % 13.2 %; Mean Corpuscular HGB Conc 33.7 g/dL (31.6-35.5); Mean Platelet Volume 8.5 fL (9.4-12.4); Monocytes # 0.7 K/mcL (0.0-1.3); Monocytes % 9.1 %; Platelet Count 183 K/mcL (140-400); Red Blood Count 4.56 M/mcL (4.19-5.50); Red Cell Distribution Width 13.8 % (11.5-14.5); Segmented Neutrophils % 77.1 %
[2016-07-10 04:50] LABS: BUN/Creatinine Ratio 10 (6-26); Blood Urea Nitrogen 6 mg/dL (8-26); Calcium 8.6 mg/dL (8.6-10.8); Carbon Dioxide 28 mEq/L (19-29); Chloride 100 mEq/L (98-109); Glucose 93 mg/dL (70-99); Osmolality,Calculated 275 (280-300); Potassium 3.3 mEq/L (3.5-4.5); Sodium 134 mEq/L (136-145); eGFR For African Americans > 60 (> 60); eGFR For Non-African Americans > 60 (> 60)
[2016-07-10] MEDS: *HR* Heparin 5,000 UNIT/ML VIAL SQ SCH (06:39)
[2016-07-10] MEDS: Furosemide 20 MG TABLET PO SCH (08:00)
[2016-07-10] MEDS: Sennosides 8.6 MG TABLET PO SCH (08:00)
[2016-07-10] MEDS: Loratadine 10 MG TABLET PO SCH (08:01)
[2016-07-10] MEDS: *HR* Morphine Sulfate SR (12 HR) 30 MG TABLET.ER PO SCH (08:01)
[2016-07-10] MEDS: predniSONE 20 MG TABLET PO SCH (08:01)
--- NOTE | 2016-07-10 10:38 | Discharge Summary ---
<Cornel Zaragoza - Last Filed: 07/10/16 11:25> Date of Encounter: 07/10/16 Time of Encounter: 10:36 - Discharge Diagnosis (1) Acute respiratory failure with hypoxia Priority: Primary Status: Resolved (2) Acute exacerbation of chronic obstructive airways disease Priority: Secondary Status: Resolved (3) Lung cancer Priority: Secondary Status: Chronic Qualifiers: Laterality: unspecified laterality Lung location: unspecified part of lung Qualified Code(s): C34.90 - Malignant neoplasm of unspecified part of unspecified bronchus or lung (4) Hypomagnesemia Priority: Secondary Status: Resolved (5) Hyponatremia Priority: Secondary Status: Resolved (6) Hypokalemia Priority: Secondary Status: Chronic (7) DVT prophylaxis Priority: Secondary Status: Acute - Discharge Medications Prescriptions: Ciprofloxacin [Cipro] 500 mg PO BID #6 tablet Levofloxacin 750 mg PO DAILY #5 tablet PredniSONE [Prednisone] 10 mg PO DAILY #40 tab.ds.pk PredniSONE [Prednisone] 50 mg PO DAILY #5 tablet Home Medications: Lactose-Reduced Food [Ensure Plus] 1 bottle PO TID #90 can 03/04/16 [Rx] Sennosides [Senna] 2 tab PO DAILY #60 tablet 03/11/16 [Rx] Lidocaine/Prilocaine CREAM [Emla] 5 gm TP DAILY #1 tube 03/20/16 [Rx] Docusate [Colace] 100 mg PO BID #60 capsule 04/01/16 [Rx] Pegfilgrastim [Neulasta (For Outpatient Infusion)] 6 mg SQ ONCE #1 syringe 04/11 [Rx] Sodium Chloride 2 gm PO DAILY #60 tablet 05/01/16 [Rx] Budesonide/Formoterol 80/4.5 [Symbicort 80/4.5] 1 puff IH BIDR 30 Days [Rx] Ipratropium/Albuterol Neb [Duoneb] 3 ml IH Q6HR PRN 30 Days 06/23/16 [Rx] Morphine Sulfate [Morphine Sulfate ER] 30 mg PO BID #60 cpmp.24hr 06/23/16 [Rx] Ondansetron [Zofran] 4 mg PO Q8HR #90 tablet 06/23/16 [Rx] Albuterol Sulfate [Albuterol Inhaler] 1 puff IH Q4H PRN #1 puff 06/26/16 [Rx] Oxycodone HCl 15 mg PO Q4H PRN #90 tablet 07/03/16 [Rx] Zolpidem [Ambien] 10 mg PO HS #30 tablet 07/03/16 [Rx] Furosemide [Lasix] 20 mg PO DAILY 07/07/16 [History] Loratadine [Allergy Relief] 10 mg PO DAILY 07/07/16 [History] Prochlorperazine Maleate [Compazine] 10 mg PO Q8HR 07/07/16 [History] Ciprofloxacin [Cipro] 500 mg PO BID #6 tablet 07/10/16 [Rx] Levofloxacin 750 mg PO DAILY #5 tablet 07/10/16 [Rx] PredniSONE [Prednisone] 10 mg PO DAILY #40 tab.ds.pk 07/10/16 [Rx] PredniSONE [Prednisone] 50 mg PO DAILY #5 tablet 07/10/16 [Rx] Allergies/Adverse Reactions: Allergies No Known Allergies Allergy (Verified 12/23/15 16:06) Date of admission: 07/08/16 04:37 Primary care physician: Juma French DO Consults: 07/08/16 09:23 Consult to Pulmonology [CONS] Routine Consulting Provider: Pulm Crit Care & Sleep Dionne Reason for Consult: external compression on bronchous. Call Completed: Yes 07/08/16 17:40 Consult to Nutrition [CONS] Routine Comment: Consulting Provider: NUTRITION Reason for Dietary Consult: MST Score Discharging clinician: Xander Louie Anticipated date of discharge: 07/10/16 - Patient Status Disposition: Home, Self-Care Condition: Good Overall status at discharge: patient is progressing back to baseline - Discharge Instructions Instructions: Acute Respiratory Distress Syndrome (DC), Chronic Obstructive Pulmonary Disease (DC), Pneumonia (DC) Follow Up With: Juma French DO [Primary Care Provider] - 07/18/16 11:00 am (please call upon discharge... ) Asim Washburn MD [Partnered Physician] - 07/16/16 3:00 pm (Please follow up as schedule. Thanks) Alonzo Kothari MD [Partnered Physician] - 08/04/16 3:45 pm Additional Instructions: You have an appointment with Dr. Kothari on August 04 at 3:45 in the [facility] for f/u. Take prednisone 50mg daily for 5 days, then stop. Take levoflaxacin 750mg one pill daily for 5 days. - Diet and Activity Activity: resume usual activities as tolerated Diet: advance to your usual diet Hospital course: Mr. Locke is a 51 year old male with metatstic lung disease presents with progressive shortness of breath, worse the past 2 weeks. Associated with cough. He hemoptysis, minimal weight change. He is under care at the Cancer center, his last chamotherapy was 3 weeks ago. He uses inhalers and nebulizers. CT chest done to evaluate shortness of breat reports a hilar mass causing local effect and wrapping around the bronchus. He is FULL CODE as per discussion and nominates his mother, Evita LOCKE as his NOK/POA. Patient initially presented to the ED were shortness of breath. He was found to be hypoxic on room air requiring supplemental oxygen to keep saturations above 90%. Chest CTA ruled out pulmonary embolism, however pulmonary arterial branches of the left mainstem bronchi were encased with lymphadenopathy occluding the left lower lobe bronchi. Due to his long-standing smoking history he also had an exacerbation of his COPD. 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 He has received one dose of chemotherapy in the past. Oncology was consulted and initiated radiation therapy for his lung cancer. During his stay he received his 1st dose of radiation at the cancer center on day 2 of his hospital stay. Pulmonology was also consult to, and took him for bronchoscopy with balloon dilation of the left mainstream bronchus as well as samples for Gram stain acid fast stain and respiratory culture. All the cultures and stains came back negative. Bronchoscopy revealed extrinsic compression of the left mainstem bronchus with greater than 90% occlusion of the left mainstem bronchus. Also mucosal regularity was found the left mainstem bronchus left upper lobe left lower lobe. BAL was performed the left lower lobe of the lung and sent for cell count ,m bacterial culture, viral smears and culture and fungal and acid fast bacterial analysis cytology. 30 mL of fluid were instilled and 15 claire were returned. The return was bloody. There is no mucoid plugs the return fluid. Balloon dilation was performed to the left mainstem bronchus of the lung using a 3 cm CRE balloon. The balloon is inflated to 9 TERRELL for 20 seconds a total of 5 times. The size is now approximately 50% of normal. Estimated while the lost 5 claire. Following the procedure patients oxygen saturation's were much improved satting 97% on room air, although he stated he still was short of breath. He received 2 days of vancomycin zosyn and levofloxacin IV. He remained afebrile throughout his stay. His vital signs stabilized after his bronchoscopy. We try to qualify them from home oxygen, but he did not qualify. Laid him that he could purchase oxygen. At the time of discharge is vital for stable. Chest X-Ray 07/07/16 21:50 IMPRESSION: Improved aeration of the lungs. Known left hilar mass and cavitary lesion left upper lobe is better seen on the chest CT. The appearance of the chest is similar to the CT performed 06/20/2016. D/ / Florida Beckford MD / [place] Beckford MD Interpreting Provider: Florida Beckford MD Chest CTA 07/07/16 22:29 IMPRESSION: 1. No definite evidence of pulmonary embolism. However the left-sided pulmonary arterial branches are encased and attenuated by bulky lymphadenopathy. 2. Otherwise stable appearance of the chest when compared with recent CT on 06/20/2016. Bulky mediastinal/left hilar lymphadenopathy encases the left main bronchus and occludes the left lower lobe bronchi. D/ / 07/08/2016 07:04:32 Daniele Norris MD / marivel Interpreting Provider: Daniele Norris MD Vital Signs Temperature 98.7 F 07/07/16 21:38 Pulse Rate 88 07/07/16 21:38 Respiratory Rate 18 07/07/16 21:38 Blood Pressure 148/111 07/07/16 21:38 O2 Sat by Pulse Oximetry 98 07/07/16 21:38 Temperature 97.3 F L 07/10/16 07:29 Pulse Rate 78 07/10/16 07:29 Respiratory Rate 18 07/10/16 07:29 Blood Pressure 160/103 07/10/16 07:29 O2 Sat by Pulse Oximetry 96 07/10/16 08:08 - Time Spent with Patient Total time spent providing and/or coordinating discharge services: Greater than 30 minutes - Constitutional Vitals: Temp Pulse Resp BP Pulse Ox 97.3 F L 78 18 160/103 96 07/10/16 07:29 07/10/16 07:29 07/10/16 07:29 07/10/16 07:29 07/10/16 08:08 General appearance: Present: cooperative, A&O X 3, no acute distress - VTE Documentation of Mechanical Device: Intermittent pneumatic compression device <Xander Louie P - Last Filed: 07/10/16 18:30> Date of Encounter: 07/10/16 Date of admission: 07/08/16 04:37 Primary care physician: Juma French, Consults: 07/08/16 09:23 Consult to Pulmonology [CONS] Routine Consulting Provider: Pulm Crit Care & Sleep Dionne Reason for Consult: external compression on bronchous. Call Completed: Yes 07/08/16 17:40 Consult to Nutrition [CONS] Routine Comment: Consulting Provider: NUTRITION Reason for Dietary Consult: MST Score Hospital course: Mr. Locke is a 51 year old male - Time Spent with Patient Total time spent providing and/or coordinating discharge services: - Constitutional Vitals: Temp Pulse Resp BP Pulse Ox 97.5 F L 80 18 162/90 95 07/10/16 10:48 07/10/16 10:48 07/10/16 10:54 07/10/16 10:48 07/10/16 10:54 - Attending Attestation I examined this patient and my medical decision-making was reviewed with the RETAIL DELIVERY DRIVER/PA/Advanced Practice Nurse/Resident Physician. I agree with the documented findings, disposition and treatment plan as described except to the extent set forth below.
[2016-07-10 10:50] VITALS: BP 162/90
[2016-07-10] MEDS: Budesonide/Formoterol 80/4.5 MDI IH SCH (10:54)
== END 2016-07-10 12:55 | disposition home or self-care (01) | DRG 136 ==
LOC: EMEROO 21:36 → 2NENU 21:36 → SUATTDRO 07-08 04:37 → 2ANU 07-08 12:50
PROVIDERS: ADMIT Internal Medicine Sleep Medicine; ATTEND Internal Medicine
PROC: ENDOBRF (2016-07-08 17:30)

== ENCOUNTER 2016-07-14 02:54 | Inpatient (IN) ==
[2016-07-14] MEDS ORDERED: methylPREDNISolone 125 MG/2 ML VIAL IVP ONE (03:08)
[2016-07-14] MEDS ORDERED: Ipratropium/Albuterol Neb 3 ML IH ONE (03:08)
--- NOTE | 2016-07-14 03:17 | Emergency Department Note ---
Disposition Clinical Impression: Hyponatremia, Acute exacerbation of chronic obstructive airways disease, Hypoxia, Hypokalemia Lung cancer Qualifiers: Laterality: left Lung location: unspecified part of lung Qualified Code(s): C34.92 - Malignant neoplasm of unspecified part of left bronchus or lung Metastatic lung cancer (metastasis from lung to other site) Qualifiers: Laterality: left Qualified Code(s): C34.92 - Malignant neoplasm of unspecified part of left bronchus or lung Disposition: Admitted As Inpatient Condition: Serious Time of Disposition: 05:23 SOB HPI - General Chief Complaint: ED Shortness of Breath/Dyspnea Stated Complaint: ANA Time Seen by Provider: 07/14/16 03:08 Source: EMS Mode of arrival: EMS Limitations: no limitations Nursing Notes Reviewed: Yes Vital Signs Reviewed: Yes - History of Present Illness 51-year-old male with known lung cancer with metastatic lesions to his neck and brain metastatic disease, presents with shortness of breath for the last several hours. Patient does not have any oxygen at home, he was recently admitted and discharged a few days ago on 07/10/2016. Patient reports shortness of breath, some subjective fevers, productive cough. Patient states that he has been feeling short of breath for last couple hours this is acutely worsening. Patient is a full code. Patient is being seen by Dr. Carlin for his lung cancer Pt Subjective Complaint: shortness of breath Onset (ago): hour(s) Context: recent illness Severity: moderate Consistency/Duration: gradually worsening Improves with: oxygen Worsens with: exertion, coughing Known history of: COPD Associated symptoms: Reports: fever, cough, wheezing, sputum production, orthopnea. Denies: chest pain, pain with inspiration Treatment prior to arrival: oxygen Cough present: Yes Cough Description: Voluntary Cough Frequency: Intermittent Sputum production: Yes Sputum Amount: Scant Sputum Color: Clear - Related Data Home Medications Medication Instructions Recorded Confirmed Furosemide [Lasix] 20 mg PO DAILY 07/07/16 07/07/16 Loratadine [Allergy Relief] 10 mg PO DAILY 07/07/16 07/07/16 Prochlorperazine Maleate 10 mg PO Q8HR 07/07/16 07/07/16 [Compazine] Previous Rx's Medication Instructions Recorded Lactose-Reduced Food [Ensure Plus] 1 bottle PO TID #90 can 03/04/16 Sennosides [Senna] 2 tab PO DAILY #60 tablet 03/11/16 Lidocaine/Prilocaine CREAM [Emla] 5 gm TP DAILY #1 tube 03/20/16 Docusate [Colace] 100 mg PO BID #60 capsule 04/01/16 Pegfilgrastim [Neulasta (For 6 mg SQ ONCE #1 syringe 04/11/16 Outpatient Infusion)] Sodium Chloride 2 gm PO DAILY #60 tablet 05/01/16 Budesonide/Formoterol 80/4.5 1 puff IH BIDR 30 Days 06/23/16 [Symbicort 80/4.5] Ipratropium/Albuterol Neb [Duoneb] 3 ml IH Q6HR PRN 30 Days 06/23/16 Morphine Sulfate [Morphine Sulfate 30 mg PO BID #60 cpmp.24hr 06/23/16 ER] Ondansetron [Zofran] 4 mg PO Q8HR #90 tablet 06/23/16 Albuterol Sulfate [Albuterol 1 puff IH Q4H PRN #1 puff 06/26/16 Inhaler] Oxycodone HCl 15 mg PO Q4H PRN #90 tablet 07/03/16 Zolpidem [Ambien] 10 mg PO HS #30 tablet 07/03/16 Ciprofloxacin [Cipro] 500 mg PO BID #6 tablet 07/10/16 Levofloxacin 750 mg PO DAILY #5 tablet 07/10/16 PredniSONE [Prednisone] 10 mg PO DAILY #40 tab.ds.pk 07/10/16 PredniSONE [Prednisone] 50 mg PO DAILY #5 tablet 07/10/16 Allergies Allergy/AdvReac Type Severity Reaction Status Date / Time No Known Allergies Allergy Verified 12/23/15 16:06 Review of Systems: A 14 point ROS was obtained and was negative except as per below or as documented in the HPI. Constitutional: Denies: fever, chills, weakness, weight change Eyes: Denies: eye pain, eye discharge, vision change ENT: Denies: ear pain, throat pain, hearing loss, epistaxis, congestion, Cardiovascular: Denies: chest pain, palpitations, dyspnea on exertion, edema, syncope Respiratory: +cough, dyspnea, wheezes Denies: , hemoptysis, stridor Gastrointestinal: Denies: abdominal pain, nausea, vomiting. diarrhea, constipation, hematemesis, hematochezia Genitourinary: Denies: urgency, dysuria, frequency, hematuria Musculoskeletal: Denies: back pain, neck pain, arthralgia, myalgia Integumentary: Denies: rash, abrasion, lesions Neurological: Denies: headache, weakness, numbness, paresthesias, confusion, abnormal gait Psychiatric: Denies: anxiety, depression, suicidal thoughts, homicidal thoughts , Endocrine: Denies: fatigue Hematological/Lymphatic: Denies: easy bleeding, easy bruising Allergic/Immunologic: Denies: facial swelling, urticaria All systems ED: reviewed and negative except as stated. Past Medical History - Past Medical History Attestation: Yes The following information was validated with the patient. Source: patient Medical history: Reports: arthritis, cancer, COPD, other Surgical history: Reports: other Psychiatric history: Reports: no psych history - Social History Smoking Status: Current every day smoker Smokeless Tobacco Status: No Alcohol use: Reports: heavy Drug use: Reports: none Physical Exam General: Thin cachectic male in mild respiratory distress Head: NCAT, no lesions Eyes: sclera anicteric, conjunctiva normal, PERRLA bilaterally, EOMI Bilaterally Ears: normal inspection, external ear wnl Nose: nasal septum nondeviated, sinuses nontender Throat: good dentition, mucous membranes moist Neck: no lymphadenopathy, trachea midline no deviation, no JVD Resp: There is diminished breath sounds in the left lung field, right lung with inspiratory expiratory wheezes CV: RRR, normal S1 and S2, no m/g/r, Pulses +2 Rad, +2 DP/PT Abdomen: Soft, NTND, no hepatosplenomegaly, no hernias, Negative Rovsing's sign , Negative Blanco's sign Back: normal inspection, no tenderness to palpation, Negative CVA tenderness bilaterally Neuro: A&O3, CN II-XII grossly intact bilaterally, no motor or sensory deficits bilaterally, gait normal, GCS 15 [id number] Ext: normal inspection, symmetric Active and Passive ROM UE and LE bilaterally , no pedal edema bilaterally Psych: normal mood, normal affect Skin: No rashes, skin warm, dry, intact Course Course Narrative: 51-year-old male with COPD and lung cancer, recently discharged for a COPD exacerbation, comes in with the same on nonrebreather, we will give DuoNeb treatments, Solu-Medrol, reassess. - Reevaluation(s) Reevaluation #1: Patient found to be hyponatremic, 1 L of normal saline was ordered. Sodium was 118, compared to baseline, this is a drop of 10 from the previous admission and discharge, however he has been this hyponatremic in the past with sodium as low as 115 in the summer, likely secondary to his lung malignancy. Time: 05:22 Vital Signs Temperature 0 F L 07/14/16 03:29 Pulse Rate 92 07/14/16 03:29 Respiratory Rate 16 07/14/16 03:29 Blood Pressure 0/0 07/14/16 03:29 O2 Sat by Pulse Oximetry 100 07/14/16 03:29 Temperature 0 F L 07/14/16 04:57 Pulse Rate 88 07/14/16 04:57 Respiratory Rate 16 07/14/16 04:57 Blood Pressure 127/75 07/14/16 04:57 O2 Sat by Pulse Oximetry 100 07/14/16 04:57 Oxygen Delivery Oxygen Delivery Aerosol Mask Shortness of Breath/Dyspnea - [facility] Narrative Medical decision making narrative: 51-year-old male with hypoxia, acute on chronic respiratory failure, requiring oxygen in the emergency department, did respond somewhat to the DuoNeb treatments, however still requiring oxygen, COPD exacerbation, hyperkalemia, hyponatremia, admitted to medicine service Dr. Jordan excepting patient's stable condition at this time of admission - Differential Diagnosis Likely: acute exacerbation of chronic obstructive airways disease, congestive heart failure, pulmonary embolism - Medical Records Medical records reviewed: Yes I reviewed the patient's medical records. - Lab Data Lab results reviewed: Yes I reviewed the patient's lab results. Result diagrams: 07/14/16 04:10 07/14/16 04:10 Lab Results 07/14/16 07/14/16 07/14/16 Range/Units 03:37 04:10 04:10 WBC 7.0 (4.3-11.1) K/mcL RBC 4.61 (4.19-5.50) M/mcL Hgb 14.7 D (12.9-16.9) g/dL Hct 41.9 (37.5-50.1) % MCV 90.9 (83.0-100.0) fL MCH 31.9 (28.0-33.3) pg MCHC 35.1 (31.6-35.5) g/dL RDW 13.4 (11.5-14.5) % Plt Count 203 (140-400) K/mcL MPV 8.2 L (9.4-12.4) fL Immature Gran % 0.7 (0-4) % Seg Neutrophils % 63.5 % Lymphocytes % 14.9 % Monocytes % 17.2 % Eosinophils % 3.0 % Basophils % 0.7 % Neutrophils # 4.4 (1.6-8.9) K/mcL Lymphocytes # 1.0 (0.6-4.6) K/mcL Monocytes # 1.2 (0.0-1.3) K/mcL Eosinophils # 0.2 (0.0-0.6) K/mcL Basophils # 0.1 (0.0-0.2) K/mcL ABG pH 7.46 H (7.32-7.45) pH Units ABG pCO2 34 L (35-45) mmHg ABG pO2 215 H (85-104) mmHg ABG HCO3 24.2 (21-27) mEQ/L ABG Total CO2 25.2 (20-26) mEq/L ABG O2 Saturation 100 H (95-98) % ABG Base Excess 0.9 (-2.0 to 3.0) mEq/L Blood Gas Modality NRB Inspired O2 100 % Sodium 118 L* D (136-145) mEq/L Potassium 3.0 L (3.5-4.5) mEq/L Chloride 85 L (98-109) mEq/L Carbon Dioxide 22 (19-29) mEq/L BUN 4 L (8-26) mg/dL Creatinine 0.55 L (0.72-1.25) mg/dL Est GFR ( Amer) > 60 (> 60) Est GFR (Non-Af Amer) > 60 (> 60) BUN/Creatinine Ratio 7 (6-26) Glucose 76 (70-99) mg/dL Calculated Osmolality 242 L (280-300) Lactic Acid (0.5-2.2) mmol/L Calcium 8.3 L (8.6-10.8) mg/dL Troponin I (0-0.03) ng/mL B-Natriuretic Peptide (0-100) pg/mL 07/14/16 07/14/16 07/14/16 Range/Units 04:10 04:10 04:10 WBC (4.3-11.1) K/mcL RBC (4.19-5.50) M/mcL Hgb (12.9-16.9) g/dL Hct (37.5-50.1) % MCV (83.0-100.0) fL MCH (28.0-33.3) pg MCHC (31.6-35.5) g/dL RDW (11.5-14.5) % Plt Count (140-400) K/mcL MPV (9.4-12.4) fL Immature Gran % (0-4) % Seg Neutrophils % % Lymphocytes % % Monocytes % % Eosinophils % % Basophils % % Neutrophils # (1.6-8.9) K/mcL Lymphocytes # (0.6-4.6) K/mcL Monocytes # (0.0-1.3) K/mcL Eosinophils # (0.0-0.6) K/mcL Basophils # (0.0-0.2) K/mcL ABG pH (7.32-7.45) pH Units ABG pCO2 (35-45) mmHg ABG pO2 (85-104) mmHg ABG HCO3 (21-27) mEQ/L ABG Total CO2 (20-26) mEq/L ABG O2 Saturation (95-98) % ABG Base Excess (-2.0 to 3.0) mEq/L Blood Gas Modality Inspired O2 % Sodium (136-145) mEq/L Potassium (3.5-4.5) mEq/L Chloride (98-109) mEq/L Carbon Dioxide (19-29) mEq/L BUN (8-26) mg/dL Creatinine (0.72-1.25) mg/dL Est GFR ( Amer) (> 60) Est GFR (Non-Af Amer) (> 60) BUN/Creatinine Ratio (6-26) Glucose (70-99) mg/dL Calculated Osmolality (280-300) Lactic Acid 1.2 (0.5-2.2) mmol/L Calcium (8.6-10.8) mg/dL Troponin I 0.01 (0-0.03) ng/mL B-Natriuretic Peptide < 10 (0-100) pg/mL - Radiology Data Radiology results reviewed: Yes I reviewed the patient's radiology results. Chest X-Ray 07/14/16 03:08 IMPRESSION: 1. Patchy lower lobe densities likely representing atelectasis. D/ / Franck Guzman MD / Franck Guzman MD Interpreting Provider: Franck Guzman MD - EKG Data EKG attestation: Yes I reviewed and interpreted this EKG. EKG shows normal: Reports: sinus rhythm Rate: Reports: normal (89 bpm normal QRS QTC and MI intervals) Rhythm: Reports: NSR [place]/QRS: Reports: normal Interpretation: Reports: no acute changes - Core Measures AMI Core Measures Followed: No Measure Exclusions: not indicated Attestation Statement - Attestation Attestation: I, Shawn Desai MD, personally performed a history and physical exam of the patient and discussed their management with the resident. I reviewed the resident's note and agree with the documented findings, medical decision making , and plan of care. 51-year-old male with history of lung cancer with metastasis presents to the emergency department with a complaint of increased shortness of breath tonight. Patient was just recently in the hospital and was discharged about 3 or 4 days ago. Shortness of breath and cough with intermittent subjective fever but tonight the shortness of breath became acutely worse. On examination patient is a well-developed well-nourished male in no acute distress. He is alert and oriented 3. There is no cyanosis or diaphoresis. Breath sounds are decreased but equal bilaterally. Some coarse rhonchi in the left base. No wheezes noted. Heart regular rate and rhythm. Abdomen soft with normal bowel sounds. Chest x-ray shows some bibasilar atelectasis. Labs reviewed and revealed a significant hyponatremia. The hospitalist, Dr. Jordan, was consulted and accepted admission of the patient.
[2016-07-14 03:48] LABS: ABG Base Excess 0.9 mEq/L (-2.0 to 3.0); ABG HCO3 24.2 mEQ/L (21-27); ABG Oxygen Saturation 100 % (95-98); ABG PCO2 34 mmHg (35-45); ABG PH 7.46 pH Units (7.32-7.45); ABG PO2 215 mmHg (85-104); ABG TCO2 25.2 mEq/L (20-26); Blood Gas FiO2 100 %
[2016-07-14 04:23] LABS: Basophils # 0.1 K/mcL (0.0-0.2); Basophils % 0.7 %; Eosinophils # 0.2 K/mcL (0.0-0.6); Hematocrit 41.9 % (37.5-50.1); Hemoglobin 14.7 g/dL (12.9-16.9); Immature Granulocytes % 0.7 % (0-4); Lymphocytes % 14.9 %; Mean Corpuscular HGB Conc 35.1 g/dL (31.6-35.5); Mean Corpuscular Hemoglobin 31.9 pg (28.0-33.3); Mean Corpuscular Volume 90.9 fL (83.0-100.0); Mean Platelet Volume 8.2 fL (9.4-12.4); Monocytes # 1.2 K/mcL (0.0-1.3); Monocytes % 17.2 %; Neutrophils # 4.4 K/mcL (1.6-8.9); Platelet Count 203 K/mcL (140-400); Red Blood Count 4.61 M/mcL (4.19-5.50); Red Cell Distribution Width 13.4 % (11.5-14.5); Segmented Neutrophils % 63.5 %
[2016-07-14 04:37] LABS: BUN/Creatinine Ratio 7 (6-26); Blood Urea Nitrogen 4 mg/dL (8-26); Calcium 8.3 mg/dL (8.6-10.8); Carbon Dioxide 22 mEq/L (19-29); Chloride 85 mEq/L (98-109); Glucose 76 mg/dL (70-99); Osmolality,Calculated 242 (280-300); eGFR For African Americans > 60 (> 60); eGFR For Non-African Americans > 60 (> 60)
[2016-07-14 04:39] LABS: Sodium 118 mEq/L (136-145)
[2016-07-14] MEDS ORDERED: 0.9 % Sodium Chloride 1,000 ML IV ONE (04:39)
[2016-07-14] MEDS ORDERED: *HR* HYDROmorphone (PF) 1 MG/ML SYRINGE IVP ONE (05:39)
--- NOTE | 2016-07-14 06:36 | Internal Med History&Physical ---
Date of Encounter: 07/14/16 Time of Encounter: 05:40 Internal Medicine - H&P: HPI Chief complaint: Shortness of breath, " I just could not breath the past day or two" Admitted From: Emergency Dept Plans for Post Hospital Care: Home History of present illness: Mr. Clemens is a 51 year old male with known lung cancer recently discharged 11/2016, with metastatic lesions to his neck and brain metastatic disease, presents with sudden worsening of chronic shortness of breath over the past day (probably hours). He has had a dry cough. No hemoptysis. He is currently undergoing palliative radiation after a recent hospitalization led to identification of obstructive metastatic lesion. He reports some chills, but no fever. Patient does not have oxygen device at home at the moment. He is FULL CODE as per discussion and nominates his mother, Evita CLEMENS as his NOK/POA. He is already under care of Dr Carlin at the Cancer center. Medical history: Reports: arthritis, lung cancer, COPD, other Surgical history: Reports: other Psychiatric history: Reports: no psych history Smoking Status: Current every day smoker 1ppd Smokeless Tobacco Status: No Alcohol use: Reports: occasionally Drug use: Reports: none Family hx: COPD/emphysema, HTN, CAD/AR, athritis, DM2, CVA. ROS: A 10-point ROS was performed, positives and relevant negatives are detailed , system-symptoms not mentioned are assumed negative unless otherwise stated. Vital Signs Temperature 0 F L 07/14/16 03:29 Pulse Rate 92 07/14/16 03:29 Respiratory Rate 16 07/14/16 03:29 Blood Pressure 0/0 07/14/16 03:29 O2 Sat by Pulse Oximetry 100 07/14/16 03:29 Temperature 0 F L 07/14/16 04:57 Pulse Rate 88 07/14/16 04:57 Respiratory Rate 16 07/14/16 04:57 Blood Pressure 127/75 07/14/16 04:57 O2 Sat by Pulse Oximetry 100 07/14/16 04:57 Not in distress, not pale, anicteric, afebrile,acyanotic, nicotine odor. Lethargic HEENT: Trachea is central, hard solitary 2.5cm right cercial lymph node, no exophthalmus, no nystagmus. Chest: monophonic wheezing on the left. Diminished air entry over same. Mediport on the right upper chest, site is clean and dry. Heart: rrr, hs1/2 Abdomen: soft, non-tender, no masses. PORTFOLIO MANAGER: aao x 3, no focal Extremities: left axillary lymphadenopathy SKIN: No active skin lesion Lab Results 07/14/16 07/14/16 07/14/16 Range/Units 03:37 04:10 04:10 WBC 7.0 (4.3-11.1) K/mcL RBC 4.61 (4.19-5.50) M/mcL Hgb 14.7 D (12.9-16.9) g/dL Hct 41.9 (37.5-50.1) % MCV 90.9 (83.0-100.0) fL MCH 31.9 (28.0-33.3) pg MCHC 35.1 (31.6-35.5) g/dL RDW 13.4 (11.5-14.5) % Plt Count 203 (140-400) K/mcL MPV 8.2 L (9.4-12.4) fL Immature Gran % 0.7 (0-4) % Seg Neutrophils % 63.5 % Lymphocytes % 14.9 % Monocytes % 17.2 % Eosinophils % 3.0 % Basophils % 0.7 % Neutrophils # 4.4 (1.6-8.9) K/mcL Lymphocytes # 1.0 (0.6-4.6) K/mcL Monocytes # 1.2 (0.0-1.3) K/mcL Eosinophils # 0.2 (0.0-0.6) K/mcL Basophils # 0.1 (0.0-0.2) K/mcL ABG pH 7.46 H (7.32-7.45) pH Units ABG pCO2 34 L (35-45) mmHg ABG pO2 215 H (85-104) mmHg ABG HCO3 24.2 (21-27) mEQ/L ABG Total CO2 25.2 (20-26) mEq/L ABG O2 Saturation 100 H (95-98) % ABG Base Excess 0.9 (-2.0 to 3.0) mEq/L Blood Gas Modality NRB Inspired O2 100 % Sodium 118 L* D (136-145) mEq/L Potassium 3.0 L (3.5-4.5) mEq/L Chloride 85 L (98-109) mEq/L Carbon Dioxide 22 (19-29) mEq/L BUN 4 L (8-26) mg/dL Creatinine 0.55 L (0.72-1.25) mg/dL Est GFR ( Amer) > 60 (> 60) Est GFR (Non-Af Amer) > 60 (> 60) BUN/Creatinine Ratio 7 (6-26) Glucose 76 (70-99) mg/dL Calculated Osmolality 242 L (280-300) Lactic Acid (0.5-2.2) mmol/L Calcium 8.3 L (8.6-10.8) mg/dL Troponin I (0-0.03) ng/mL B-Natriuretic Peptide (0-100) pg/mL 07/14/16 07/14/16 07/14/16 Range/Units 04:10 04:10 04:10 WBC (4.3-11.1) K/mcL RBC (4.19-5.50) M/mcL Hgb (12.9-16.9) g/dL Hct (37.5-50.1) % MCV (83.0-100.0) fL MCH (28.0-33.3) pg MCHC (31.6-35.5) g/dL RDW (11.5-14.5) % Plt Count (140-400) K/mcL MPV (9.4-12.4) fL Immature Gran % (0-4) % Seg Neutrophils % % Lymphocytes % % Monocytes % % Eosinophils % % Basophils % % Neutrophils # (1.6-8.9) K/mcL Lymphocytes # (0.6-4.6) K/mcL Monocytes # (0.0-1.3) K/mcL Eosinophils # (0.0-0.6) K/mcL Basophils # (0.0-0.2) K/mcL ABG pH (7.32-7.45) pH Units ABG pCO2 (35-45) mmHg ABG pO2 (85-104) mmHg ABG HCO3 (21-27) mEQ/L ABG Total CO2 (20-26) mEq/L ABG O2 Saturation (95-98) % ABG Base Excess (-2.0 to 3.0) mEq/L Blood Gas Modality Inspired O2 % Sodium (136-145) mEq/L Potassium (3.5-4.5) mEq/L Chloride (98-109) mEq/L Carbon Dioxide (19-29) mEq/L BUN (8-26) mg/dL Creatinine (0.72-1.25) mg/dL Est GFR ( Amer) (> 60) Est GFR (Non-Af Amer) (> 60) BUN/Creatinine Ratio (6-26) Glucose (70-99) mg/dL Calculated Osmolality (280-300) Lactic Acid 1.2 (0.5-2.2) mmol/L Calcium (8.6-10.8) mg/dL Troponin I 0.01 (0-0.03) ng/mL B-Natriuretic Peptide < 10 (0-100) pg/mL Chest X-Ray 07/14/16 03:08 Patchy lower lobe densities likely representing atelectasis. EKG: NSR @ 89, normal axis, normal intervals CT chest: of 07/08/2015: Obstructive hilar lymphadenopathy, encasing the left main bronchus and occluding the left lower lobe bronchus. 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 IMP Admit Bronchodilator, IV Solumedrol, nebulized budesonide Oxygen supplementation Palliative radiation therapy on-going Pulmonology consult. Correct electrolytes abnormalities. Samsca 15 mg x 1 dose, increase salt tablets to 1g BID. He is euvolemic, may benefit from some fluid restriction though. Continue other medications of chronic morbidities DVT prophylaxis I discussed my assessment with the patient, he verbalized understanding and is agreeable to admission. He is admitted for evaluation of acute worsening of chronic SOB, with the view to achieving stabilization. Past Med Surg Social Fam HX - Past Medical History Medical history: arthritis, cancer, COPD, other Psychiatric history: no psych history - Past Surgical History Surgical History: other - Social History Smoking Status: Current every day smoker Smokeless Tobacco Status: No Alcohol use: heavy Drug use: none - Family History Father Family Member Ethnicity: Non- Hx Family Cardiac Disorders: Yes Hx Family Respiratory Disorders: Yes (COPD) Hx Family Cancer: Yes (Lung cancer,) Hx Family GI Disorders: No Hx Family Endocrine Disorder: No Hx Family Neuromuscular Disorders: No Hx Family Neurologic Disorders: No Hx Family HEENT Disorders: No Hx Family Autoimmune Disorders: No Brother Living Status: Internal Medicine - H&P: Meds Docusate [Colace] 100 mg PO BID #60 capsule 04/01/16 [Rx] Budesonide/Formoterol 80/4.5 [Symbicort 80/4.5] 1 puff IH BIDR 30 Days [Rx] Ipratropium/Albuterol Neb [Duoneb] 3 ml IH Q6HR PRN 30 Days 06/23/16 [Rx] Morphine Sulfate [Morphine Sulfate ER] 30 mg PO BID #60 cpmp.24hr 06/23/16 [Rx] Ondansetron [Zofran] 4 mg PO Q8HR #90 tablet 06/23/16 [Rx] Albuterol Sulfate [Albuterol Inhaler] 1 puff IH Q4H PRN #1 puff 06/26/16 [Rx] Oxycodone HCl 15 mg PO Q4H PRN #90 tablet 07/03/16 [Rx] Zolpidem [Ambien] 10 mg PO HS #30 tablet 07/03/16 [Rx] Furosemide [Lasix] 40 mg PO QAM 07/07/16 [History] Prochlorperazine Maleate [Compazine] 10 mg PO Q8HR 07/07/16 [History] Ciprofloxacin [Cipro] 500 mg PO BID #6 tablet 07/10/16 [Rx] Levofloxacin 750 mg PO DAILY #5 tablet 07/10/16 [Rx] PredniSONE [Prednisone] 50 mg PO DAILY #5 tablet 07/10/16 [Rx] Furosemide [Lasix] 20 mg PO HS 07/14/16 [History] Lactose-Reduced Food [Ensure Plus] 1 bottle PO BID 07/14/16 [History] Sennosides [Senna] 8.6 tab PO BID 07/14/16 [History] Sodium Chloride 1 gm PO DAILY 07/14/16 [History] Allergies No Known Allergies Allergy (Verified 12/23/15 16:06) All Systems PM: A 10-system review of systems was performed and is negative for pertinent findings except as documented above in the HPI. - Constitutional Vitals: Temp Pulse Resp BP Pulse Ox 0 F L 88 16 127/81 100 07/14/16 06:01 07/14/16 04:57 07/14/16 06:01 07/14/16 06:01 07/14/16 04:57 Internal Med - H&P Results - Labs CBC & Chem 7: 07/14/16 04:10 07/14/16 04:10
[2016-07-14] MEDS ORDERED: Albuterol 2.5 MG/3 ML NEBULIZER IH PRN (06:53)
[2016-07-14] MEDS ORDERED: Tolvaptan 15 MG TABLET PO ONE (06:54)
[2016-07-14] MEDS ORDERED: Naloxone 0.4 MG/ML INJ IVP PRN (06:58)
[2016-07-14] MEDS ORDERED: Ondansetron 4 MG/2 ML VIAL IVP PRN (07:01)
[2016-07-14 07:28] LABS: Magnesium 1.8 mg/dL (1.6-2.6)
[2016-07-14] MEDS ORDERED: D5% in 0.45% NACL w KCl 20 MEQ/1,000 ML MLS IVC SCH (08:45)
[2016-07-14] MEDS ORDERED: Potassium Chloride 10 MEQ in D5% in 0.3% NACL 1,000 ML IVC SCH (08:45)
[2016-07-14] MEDS ORDERED: NON-FORMULARY MEDICATION 1 EACH EACH (Lactose-Reduced Food [Ensure Plus] 1 BOTTLE) PO SCH (09:00)
[2016-07-14] MEDS: Sennosides 8.6 MG TABLET PO SCH ×2 (10:11→19:59)
[2016-07-14] MEDS: *HR* Morphine Sulfate SR (12 HR) 30 MG TABLET.ER PO SCH ×2 (10:11→19:59)
[2016-07-14] MEDS: MethylPREDNISolone 40 MG/ML VIAL IVP SCH ×3 (10:13→22:41)
[2016-07-14] MEDS: Ipratropium/Albuterol Neb 3 ML IH SCH ×3 (10:53→21:41)
[2016-07-14] MEDS: Budesonide Neb 0.5 MG/2 ML IH SCH ×2 (10:53→21:41)
--- NOTE | 2016-07-14 12:27 | Electrocardiograph Report ---
[facility] Test Date: 2016-07-14 Pat Name: Ashok Locke Department: 102 Room: 3B48 Gender: M Pad Hand: Sharda : 1965 Requested By: Pradeep Mcdonald Order Number: [id number] Reading MD: Lebron Guzman DO Measurements Intervals [place] Rate: 89 P: 53 NV: 158 QRS: -24 QRSD: 107 T: 57 QT: 371 QTc: 417 Interpretive Statements Sinus rhythm Electronically Signed On 07-14-16 12:26:39 EST by Lebron Guzman DO
--- NOTE | 2016-07-14 13:01 | Event Note ---
Date of Encounter: 07/14/16 Time of Encounter: 10:15 Patient seen and examined. On examination, patient is sitting upright in his bed. Patient alert and oriented 3. Patient stating he still has a little bit of pain but states his pain is controlled. He states his shortness of breath is improving but is not yet back to his baseline. Patient stating he is eating well but he overall does not eat very much and states that he does drink Ensure as well. He is currently on 2 L per nasal cannula and is not on oxygen at home. We will continue supplemental oxygenation. Suspect he will be ready to discharge tomorrow, will attempt to qualify him for oxygen prior to disposition. He does have radiation later today at 2:30. Hyponatremia noted which is chronic for him, gentle IV fluids initiated. Hypokalemia also being addressed; magnesium normal. Chest x-ray revealing bilateral atelectasis. No symptoms to suggest infection, afebrile. We will continue to monitor and suspect discharge early tomorrow pending clinical outcomes. ITS Impressions Chest X-Ray 07/14/16 03:08 IMPRESSION: 1. Patchy lower lobe densities likely representing atelectasis. D/ / Franck Guzman MD / Franck Guzman MD Interpreting Provider: Franck Guzman MD
[2016-07-14] MEDS: levoFLOXacin 750 MG TABLET PO SCH (17:00)
[2016-07-14] MEDS: *HR* OxyCODONE Immed Rel 15 MG TABLET PO PRN ×2 (17:00→22:40)
[2016-07-14] MEDS ORDERED: Furosemide 20 MG TABLET PO SCH (21:00)
[2016-07-15] MEDS: *HR* OxyCODONE Immed Rel 15 MG TABLET PO PRN (04:04)
[2016-07-15] MEDS: Ipratropium/Albuterol Neb 3 ML IH SCH ×2 (05:10→10:27)
[2016-07-15 05:11] LABS: BUN/Creatinine Ratio 14 (6-26); Blood Urea Nitrogen 9 mg/dL (8-26); Calcium 9.2 mg/dL (8.6-10.8); Carbon Dioxide 25 mEq/L (19-29); Glucose 139 mg/dL (70-99); Osmolality,Calculated 285 (280-300); eGFR For African Americans > 60 (> 60); eGFR For Non-African Americans > 60 (> 60)
[2016-07-15 05:19] LABS: Chloride 103 mEq/L (98-109); Sodium 137 mEq/L (136-145)
[2016-07-15] MEDS ORDERED: *HR* Enoxaparin 40 MG/0.4 ML SYRINGE SQ SCH (06:00)
[2016-07-15 08:08] VITALS: BP 159/98
[2016-07-15] MEDS: *HR* Morphine Sulfate SR (12 HR) 30 MG TABLET.ER PO SCH (08:52)
[2016-07-15] MEDS: MethylPREDNISolone 40 MG/ML VIAL IVP SCH (08:52)
[2016-07-15] MEDS: levoFLOXacin 750 MG TABLET PO SCH (08:52)
[2016-07-15] MEDS: Sennosides 8.6 MG TABLET PO SCH (08:52)
[2016-07-15] MEDS: Budesonide Neb 0.5 MG/2 ML IH SCH (10:26)
[2016-07-15] MEDS ORDERED: clonazePAM 0.5 MG TABLET PO STA (11:29)
--- NOTE | 2016-07-15 11:58 | Discharge Summary ---
Date of Encounter: 07/15/16 Time of Encounter: 09:45 - Discharge Diagnosis (1) Panic attacks Priority: Primary Status: Suspected Comments: In further discussion with the patient, patient stating that his shortness of breath episodes would only last about 40 minutes and were associated with severe anxiety. Of note, patient informing me that he does not believe and anxiety as a diagnosis. He was amenable to initiating anxiety medications. (2) Acute exacerbation of chronic obstructive airways disease Priority: Primary Status: Resolved Comments: Patient denies shortness of breath above his normal day of discharge. Recommend follow-up closely outpatient. (3) Hyponatremia Priority: Primary Status: Resolved (4) Hypoxia Priority: Primary Status: Resolved Comments: Attempted to qualify the patient for home oxygen however he refused stating that he did not qualify last time and he would not qualify this time so to do the qualification test would be a waste of time. He was not sent home on oxygen , recommend follow-up outpatient for possible as needed oxygen at home. (5) Metastatic lung cancer (metastasis from lung to other site) Priority: Secondary Status: Chronic (6) Hypokalemia Priority: Primary Status: Resolved (7) Lung cancer Priority: Secondary Status: Chronic Qualifiers: Laterality: left Lung location: unspecified part of lung Qualified Code(s ): C34.92 - Malignant neoplasm of unspecified part of left bronchus or lung (8) DVT prophylaxis Priority: Primary Status: Acute Comments: Subcutaneous Lovenox while admitted (9) Lymphadenopathy, mediastinal Priority: Secondary Status: Chronic (10) Brain metastasis Priority: Secondary Status: Chronic (11) COPD (chronic obstructive pulmonary disease) Priority: Secondary Status: Chronic Qualifiers: COPD type: unspecified COPD Qualified Code(s): J44.9 - Chronic obstructive pulmonary disease, unspecified (12) Acute respiratory failure with hypoxia Priority: Primary Status: Resolved (13) Hypomagnesemia Priority: Primary Status: Resolved - Discharge Medications Prescriptions: ClonazePAM [Klonopin] 0.5 mg PO BID PRN #14 tablet PRN Reason: Anxiety Levofloxacin 750 mg PO DAILY #5 tablet Omeprazole [PriLOSEC] 40 mg PO DAILY@0630 #60 capsule. PredniSONE [Prednisone] 50 mg PO DAILY #5 tablet Home Medications: Docusate [Colace] 100 mg PO BID #60 capsule 04/01/16 [Rx] Budesonide/Formoterol 80/4.5 [Symbicort 80/4.5] 1 puff IH BIDR 30 Days [Rx] Ipratropium/Albuterol Neb [Duoneb] 3 ml IH Q6HR PRN 30 Days 06/23/16 [Rx] Morphine Sulfate [Morphine Sulfate ER] 30 mg PO BID #60 cpmp.24hr 06/23/16 [Rx] Ondansetron [Zofran] 4 mg PO Q8HR #90 tablet 06/23/16 [Rx] Albuterol Sulfate [Albuterol Inhaler] 1 puff IH Q4H PRN #1 puff 06/26/16 [Rx] Oxycodone HCl 15 mg PO Q4H PRN #90 tablet 07/03/16 [Rx] Zolpidem [Ambien] 10 mg PO HS #30 tablet 07/03/16 [Rx] Furosemide [Lasix] 40 mg PO QAM 07/07/16 [History] Prochlorperazine Maleate [Compazine] 10 mg PO Q8HR 07/07/16 [History] Furosemide [Lasix] 20 mg PO HS 07/14/16 [History] Lactose-Reduced Food [Ensure Plus] 1 bottle PO BID 07/14/16 [History] Nicotine [Nicotine Patch] 21 mg TP DAILY 07/14/16 [History] Sennosides [Senna] 8.6 tab PO BID 07/14/16 [History] Sodium Chloride 1 gm PO DAILY 07/14/16 [History] ClonazePAM [Klonopin] 0.5 mg PO BID PRN #14 tablet 07/15/16 [Rx] Levofloxacin 750 mg PO DAILY #5 tablet 07/15/16 [Rx] Omeprazole [PriLOSEC] 40 mg PO DAILY@0630 #60 capsule. 07/15/16 [Rx] PredniSONE [Prednisone] 50 mg PO DAILY #5 tablet 07/15/16 [Rx] Allergies/Adverse Reactions: Allergies No Known Allergies Allergy (Verified 07/14/16 08:10) Date of admission: 07/14/16 06:58 Primary care physician: Juma French DO Discharging clinician: Jana Austin Anticipated date of discharge: 07/15/16 - Patient Status Disposition: Home, Self-Care Condition: Fair Functional capacity at discharge: independent ambulation Overall status at discharge: patient is progressing back to baseline - Discharge Instructions Follow Up With: Juma French DO [Primary Care Provider] - 07/18/16 11:00 am Additional Instructions: Follow-up with primary care provider and oncology as needed - Diet and Activity Activity: increase activity as tolerated Diet: regular diet Hospital course: Mr. Locke is a 51 year old male with past medical history of known lung cancer with metastasis to his neck, brain, COPD, one pack per day smoker. Patient presented to the emergency department chief complaint sudden worsening of his chronic shortness of breath. Patient also endorses a dry cough. Patient is currently undergoing palliative radiation and was recently discharged from [facility] on 07/10/16. He is not currently on oxygen at home and required supplemental oxygenation while in the emergency department. Chest x- ray consistent with atelectasis. Patient was admitted to the hospitalist service for further evaluation and management. Patient was admitted and observed over the course of 2 days. In further discussion with the patient, it appears as if his shortness of breath episodes are consistent with panic attacks. Patient stating he would become stressed and then for approximately 40 minutes on 2 separate occasions he would have severe respiratory distress and feeling of impending doom stating he felt as if he was dying. He was started on clonazepam during this admission and tolerated it well. Of note, patient stating he does not believe in anxiety as a diagnosis but he was amenable to taking anxiety medication. He was reassured that anxiety is legitimate and antianxiety medications would be appropriate for him. He was slightly hypertensive at times however this appeared to correlate with increased pain. Hyponatremia and hypokalemia resolved during this admission. He did have palliative radiation on the one night that he was inpatient. On day of discharge, he denied shortness of breath above his norm. He again did not qualify for supplemental oxygenation. He was discharged home in stable condition with close outpatient follow-up recommended. ITS Impressions Chest X-Ray 07/14/16 03:08 IMPRESSION: 1. Patchy lower lobe densities likely representing atelectasis. D/ / Franck Guzman MD / Franck Guzman MD Interpreting Provider: Franck Guzman MD - Time Spent with Patient Total time spent providing and/or coordinating discharge services: - Constitutional Vitals: Temp Pulse Resp BP Pulse Ox 97.5 F L 86 16 159/98 99 07/15/16 08:05 07/15/16 08:05 07/15/16 08:05 07/15/16 08:05 07/15/16 08:05 General appearance: Present: A&O X 3, no acute distress, answers questions appropriately - Head Head exam: Present: atraumatic, normocephalic - Eye Eye exam: Present: PERRL, conjuntiva pink, sclera anicteric Pupils: Present: PERRL - Neck Neck exam general surgery: Present: supple, trachea midline. Absent: lymphadenopathy - Respiratory Respiratory exam: Present: accessory muscle use, decreased breath sounds. Absent: rales, respiratory distress, rhonchi, wheezes - Cardiovascular Cardiovascular exam: Present: RRR, +S1, +S2. Absent: diastolic murmur, gallop, rubs, systolic murmur - GI/Abdominal GI/Abdominal exam: Present: normal bowel sounds, soft, no peritoneal signs. Absent: distended, tenderness - Extremities Exam Extremities exam: Present: warm, radial pulses palpable and symetrical. Absent : calf tenderness, cyanotic, pedal edema - Neurological Exam Neurological exam: Present: alert, CN II-XII intact, normal gait, oriented X3, no focal deficits, strengths equal and symetr throughout. Absent: pronater drift, facial droop, speech deficit - Skin Skin exam: Present: dry, intact, pallor, warm
== END 2016-07-15 12:35 | disposition home or self-care (01) | DRG 756 ==
LOC: EMEROO 02:54 → 3BNU 02:54
PROVIDERS: ADMIT Internal Medicine; ATTEND Nurse Practitioner Family

== ENCOUNTER 2016-08-16 11:45 | Inpatient (IN) ==
[2016-08-16] MEDS ORDERED: Ipratropium/Albuterol Neb 3 ML IH ONE ×2 (12:03→12:04)
[2016-08-16] MEDS ORDERED: methylPREDNISolone 125 MG/2 ML VIAL IVP ONE (12:03)
--- NOTE | 2016-08-16 12:13 | Emergency Department Note ---
Disposition Clinical Impression: Acute exacerbation of chronic obstructive airways disease, Hyponatremia, Hypokalemia Disposition: Admitted As Inpatient Condition: Fair Referrals: NO,PCP [Primary Care Provider] - Forms: ED Satisfaction Letter SOB HPI - General Chief Complaint: ED Shortness of Breath/Dyspnea Stated Complaint: "sob/cancer pt" Source: EMS Mode of arrival: EMS Limitations: no limitations Nursing Notes Reviewed: Yes Vital Signs Reviewed: Yes - History of Present Illness Pt Subjective Complaint: shortness of breath Onset (ago): day(s) (3) Severity: moderate Consistency/Duration: gradually worsening Improves with: oxygen, rest, bronchodilators Worsens with: exertion, coughing Known history of: COPD, other (lung CA) Associated symptoms: Reports: wheezing Treatment prior to arrival: oxygen, bronchodilator Cough present: Yes Cough Description: Involuntary Cough Frequency: Intermittent Sputum production: Yes Sputum Amount: Scant - Related Data Home Medications Medication Instructions Recorded Confirmed Furosemide [Lasix] 40 mg PO QAM 07/07/16 07/14/16 Furosemide [Lasix] 20 mg PO HS 07/14/16 07/14/16 Lactose-Reduced Food [Ensure Plus] 1 bottle PO BID 07/14/16 07/14/16 Nicotine [Nicotine Patch] 21 mg TP DAILY 07/14/16 07/14/16 Sennosides [Senna] 8.6 tab PO BID 07/14/16 07/14/16 Sodium Chloride 1 gm PO DAILY 07/14/16 07/14/16 Previous Rx's Medication Instructions Recorded Docusate [Colace] 100 mg PO BID #60 capsule 04/01/16 Budesonide/Formoterol 80/4.5 1 puff IH BIDR 30 Days 06/23/16 [Symbicort 80/4.5] Ipratropium/Albuterol Neb [Duoneb] 3 ml IH Q6HR PRN 30 Days 06/23/16 Ondansetron [Zofran] 4 mg PO Q8HR #90 tablet 06/23/16 Albuterol Sulfate [Albuterol 1 puff IH Q4H PRN #1 puff 06/26/16 Inhaler] ClonazePAM [Klonopin] 0.5 mg PO BID PRN #14 tablet 07/15/16 Omeprazole [PriLOSEC] 40 mg PO DAILY@0630 #60 capsule. 07/15/16 PredniSONE [Prednisone] 50 mg PO DAILY #5 tablet 07/15/16 Dexamethasone [Decadron] 4 mg PO BID #25 tab 07/22/16 Morphine Sulfate [Morphine Sulfate 30 mg PO BID #60 cpmp.24hr 07/28/16 ER] Azithromycin 250 mg PO DAILY #6 tablet 07/29/16 Levofloxacin 750 mg PO DAILY #7 tablet 07/29/16 Zolpidem [Ambien] 10 mg PO HS #30 tablet 08/05/16 Oxycodone HCl 15 mg PO Q4H PRN #90 tablet 08/06/16 Prochlorperazine Maleate 10 mg PO Q8HR #90 tablet 08/06/16 [Compazine] Megestrol Acetate [Megace] 800 mg PO DAILY #300 mls 08/12/16 Allergies Allergy/AdvReac Type Severity Reaction Status Date / Time No Known Allergies Allergy Verified 07/14/16 08:10 All systems ED: reviewed and negative except as stated. Constitutional: Reports: weakness. Denies: fever, chills Respiratory: Reports: dyspnea, wheezes Gastrointestinal: Denies: nausea, vomiting Past Medical History - Past Medical History Source: patient, old records reviewed, nursing notes reviewed Medical history: Reports: arthritis, cancer, COPD, other Surgical history: Reports: other Psychiatric history: Reports: no psych history - Social History Smoking Status: Current every day smoker Smokeless Tobacco Status: No Alcohol use: Reports: heavy Drug use: Reports: none Physical Exam - General Limitations: no limitations General appearance: in distress (mild respiratory distress speaks in short phrases) - Head Head exam: atraumatic, normocephalic, normal inspection - Eye Eye exam: Present: normal appearance, PERRL, EOMI - Expanded Eye Exam Pupils: Left: reactive - ENT ENT exam: normal exam, normal oropharynx, mucous membranes moist - Expanded ENT Exam External ear exam: Present: normal external inspection Mouth exam: Present: normal external inspection Teeth exam: Present: normal inspection Throat exam: Present: normal inspection - Neck Neck exam: Present: normal inspection, full ROM, trachea midline - Chest Chest inspection: Present: normal inspection, symmetric chest wall rise - Respiratory Respiratory exam: Present: respiratory distress (mild tachypneic), wheezes, prolonged expiratory phase - Cardiovascular Cardiovascular exam: Present: regular rate, normal rhythm, normal heart sounds - Abdominal Exam Abdominal exam: Present: soft, Non-Tender. Absent: tenderness, distention, guarding, rebound, rigidity - Extremities Exam Extremities exam: Present: normal inspection, full ROM. Absent: tenderness, pedal edema - Expanded Upper Extremity Exam Shoulder exam: Present: normal inspection, full ROM Arm exam: Present: normal inspection, full ROM Elbow exam: Present: normal inspection, full ROM Forearm/Wrist exam: Present: normal inspection, full ROM Hand exam: Present: normal inspection, full ROM Vascular exam: Normal: capillary refill, radial pulse - Expanded Lower Extremity Exam Hip/Pelvis exam: Present: normal inspection, full ROM Upper leg exam: Present: normal inspection, full ROM Knee exam: Present: normal inspection, full ROM Lower leg exam: Present: normal inspection, full ROM Ankle exam: Present: normal inspection, full ROM Foot/toe exam: Present: normal inspection, full ROM Neurovascular/Tendon exam: Absent: motor deficit, sensory deficit, tendon deficit - Back Exam Back exam: Present: normal inspection, full ROM. Absent: tenderness - Neurological Exam Neurological exam: Present: alert, oriented X3 - Expanded Neurological Exam Patient oriented to: Present: person, place, time Coma Scale Eye Opening: Spontaneous Coma Scale Motor Response: Obeys Commands Coma Scale Verbal Response: Oriented Coma Scale Total: 15 - Psychiatric Psychiatric exam: Present: normal affect, normal mood - Skin Skin exam: Present: warm, dry, intact, normal color Course - Reevaluation(s) Reevaluation #1: Patient's breathing is improved he prefers a Ventimask because he is having difficulty breathing through his nostrils Time: 13:35 Vital Signs Temperature 96.9 F L 08/16/16 11:49 Pulse Rate 92 08/16/16 11:49 Respiratory Rate 20 08/16/16 11:49 Blood Pressure 122/87 08/16/16 11:49 O2 Sat by Pulse Oximetry 100 08/16/16 11:49 Temperature 96.9 F L 08/16/16 11:49 Pulse Rate 98 08/16/16 13:16 Respiratory Rate 26 08/16/16 13:16 Blood Pressure 120/78 08/16/16 13:16 O2 Sat by Pulse Oximetry 97 08/16/16 13:16 Oxygen Delivery Oxygen Delivery Nasal Cannula Shortness of Breath/Dyspnea - Differential Diagnosis Likely: acute exacerbation of chronic obstructive airways disease, congestive heart failure, pneumonia, asthma with exacerbation, pulmonary embolism, arrhythmia - Medical Records Medical records reviewed: Yes I reviewed the patient's medical records. - Lab Data Result diagrams: 08/16/16 12:58 Lab Results 08/16/16 08/16/16 08/16/16 Range/Units 12:58 12:58 12:58 PT 12.1 (9.4-12.1) Seconds INR 1.1 APTT 32.2 (26.0-36.0) Seconds Sodium 115 L* (136-145) mEq/L Potassium 2.9 L (3.5-4.5) mEq/L Chloride 78 L (98-109) mEq/L Carbon Dioxide 24 (19-29) mEq/L BUN 4 L (8-26) mg/dL Creatinine 0.52 L (0.72-1.25) mg/dL Est GFR ( Amer) > 60 (> 60) Est GFR (Non-Af Amer) > 60 (> 60) BUN/Creatinine Ratio 8 (6-26) Glucose 96 (70-99) mg/dL Calculated Osmolality 237 L (280-300) Calcium 8.8 (8.6-10.8) mg/dL Troponin I 0.00 (0-0.03) ng/mL B-Natriuretic Peptide (0-100) pg/mL 08/16/16 Range/Units 12:58 PT (9.4-12.1) Seconds INR APTT (26.0-36.0) Seconds Sodium (136-145) mEq/L Potassium (3.5-4.5) mEq/L Chloride (98-109) mEq/L Carbon Dioxide (19-29) mEq/L BUN (8-26) mg/dL Creatinine (0.72-1.25) mg/dL Est GFR ( Amer) (> 60) Est GFR (Non-Af Amer) (> 60) BUN/Creatinine Ratio (6-26) Glucose (70-99) mg/dL Calculated Osmolality (280-300) Calcium (8.6-10.8) mg/dL Troponin I (0-0.03) ng/mL B-Natriuretic Peptide 28 (0-100) pg/mL - Radiology Data Radiology results reviewed: Yes I reviewed the patient's radiology results. - EKG Data EKG attestation: Yes I reviewed and interpreted this EKG. EKG shows normal: Reports: sinus rhythm Rate: Reports: normal Rhythm: Reports: NSR Carson/QRS: Reports: left axis deviation Interpretation: Reports: no acute changes Critical Care Time Critical Care Time: Yes Total Critical Care Time: 35 Attestation: Critical care performed: Time is exclusive of separately billable procedures. Time includes: direct patient care, patient reassessment, coordination of patient care, interpretation of data (laboratory data, radiology data, and respiratory data), review of patient's medical records, medical consultation and documentation of patient care. Procedures included in critical care time: Procedures excluded from critical care time:
[2016-08-16 13:11] LABS: INR 1.1; Prothrombin Time 12.1 Seconds (9.4-12.1)
[2016-08-16 13:14] LABS: Activated Partial Thrombo Time 32.2 Seconds (26.0-36.0)
[2016-08-16 13:23] LABS: BUN/Creatinine Ratio 8 (6-26); Calcium 8.8 mg/dL (8.6-10.8); Carbon Dioxide 24 mEq/L (19-29); Chloride 78 mEq/L (98-109); Glucose 96 mg/dL (70-99); Osmolality,Calculated 237 (280-300); Potassium 2.9 mEq/L (3.5-4.5); eGFR For African Americans > 60 (> 60); eGFR For Non-African Americans > 60 (> 60)
[2016-08-16 13:25] LABS: Blood Urea Nitrogen 4 mg/dL (8-26)
[2016-08-16 13:27] LABS: Sodium 115 mEq/L (136-145)
[2016-08-16] MEDS ORDERED: Levofloxacin 750 MG/150 ML 750 MG/150 ML BAG IVPB ONE (13:29)
[2016-08-16 13:52] LABS: Magnesium 1.3 mg/dL (1.6-2.6)
[2016-08-16 14:18] LABS: Platelet Count 128 K/mcL (140-400)
[2016-08-16 14:59] LABS: Basophils % 0.2 %; Eosinophils # 0.1 K/mcL (0.0-0.6); Eosinophils % 1.7 %; Hemoglobin 13.3 g/dL (12.9-16.9); Immature Granulocytes % 0.7 % (0-4); Lymphocytes # 0.6 K/mcL (0.6-4.6); Lymphocytes % 13.3 %; Mean Corpuscular HGB Conc 36.9 g/dL (31.6-35.5); Mean Corpuscular Hemoglobin 31.1 pg (28.0-33.3); Mean Corpuscular Volume 84.1 fL (83.0-100.0); Mean Platelet Volume 8.2 fL (9.4-12.4); Monocytes # 0.5 K/mcL (0.0-1.3); Monocytes % 13.1 %; Neutrophils # 2.9 K/mcL (1.6-8.9); Red Blood Count 4.28 M/mcL (4.19-5.50)
[2016-08-16] MEDS ORDERED: Oxymetazoline Nasal SPRAY BOTTLE NS ONE (15:02)
[2016-08-16] MEDS ORDERED: Acetaminophen 325 MG TABLET PO PRN (16:04)
[2016-08-16] MEDS ORDERED: Ondansetron 4 MG/2 ML VIAL IVP PRN (16:04)
[2016-08-16] MEDS ORDERED: Magnesium Sulfate 2 GM in D5% in Water 100 ML IVPB ONE (16:13)
[2016-08-16] MEDS ORDERED: 0.9 % Sodium Chloride w KCl 40 MEQ/1,000 ML MLS IVC SCH ×2 (16:15→17:00)
--- NOTE | 2016-08-16 16:18 | Internal Med History&Physical ---
Date of Encounter: 08/16/16 Time of Encounter: 16:15 Assessment and Plan (1) Acute exacerbation of chronic obstructive airways disease Current visit: Yes Status: Acute We will treat the patient with Solu-Medrol, inhaled bronchodilators and oxygen by nasal cannula. Does not require antibiotic. (2) Hypokalemia Current visit: Yes Status: Acute Replete with oral and IV potassium chloride. Monitor and replete electrolytes closely. (3) Hyponatremia Current visit: Yes Status: Acute Possibly secondary to SIADH versus decreased solid intake versus secondary to diuretic as the patient is taking Lasix at home. On review of his previous admissions it appears that his baseline is around 120 - 1:30, however his sodium level fluctuates and highest has been recently was 137. It has dipped down to 113. We will provide gentle IV fluid hydration and monitor sodium levels closely every 4 hours and adjust therapy according to changes in sodium level. He is at high risk for sudden neurological decline due to IV therapy requiring close and frequent electrolyte blood level monitoring. (4) DVT prophylaxis Current visit: No Status: Acute Subcutaneous Lovenox. (5) Cachexia Current visit: No Status: Chronic Nutrition consult. (6) Chest pain Current visit: No Status: Chronic could be indicaing AcS,unlike, could be related to metastatic colon cancer. We will trend troponins and monitor patient on telemetry. Qualifiers: Chest pain type: chest pain on breathing Qualified Code(s): R07.1 - Chest pain on breathing (7) Metastatic lung cancer (metastasis from lung to other site) Current visit: No Status: Chronic Consults oncology. Qualifiers: Laterality: left Qualified Code(s): C34.92 - Malignant neoplasm of unspecified part of left bronchus or lung (8) Hypomagnesemia Current visit: No Status: Resolved Replete magnesium with IV magnesium sulfate. Check magnesium level in the morning. Internal Medicine - H&P: HPI Chief complaint: Shortness of breath Admitted From: Emergency Dept Plans for Post Hospital Care: Home History of present illness: Mr. Locke is a 51 year old male with past medical history significant for metastatic small cell lung cancer, chronic tobacco abuse and COPD who presented to the hospital for evaluation of shortness of breath. Patient reports that for the last 1 day has been severely short of breath, more than his usual, he has some associated dry cough which is the norm for him but no sputum production and unchanged left-sided chest pain which has been bothering him for months. Denies fevers, chills, nausea, vomiting, diarrhea, diaphoresis, syncopal events, bleeding, bruising, joint aches and pains, denies back pain and bone pain. A 10 point review of systems was otherwise negative except as described above. Family history negative for which her coronary disease in both parents as well as history of cancer. Social history: Patient continues to smoke 7 cigarettes a day previously 1 pack a day smoker for most of his life. Past Med Surg Social Fam HX - Past Medical History Medical history: arthritis, cancer, COPD, other Psychiatric history: no psych history - Past Surgical History Surgical History: other - Social History Smoking Status: Current every day smoker Smokeless Tobacco Status: No Alcohol use: heavy Drug use: none - Family History Father Family Member Ethnicity: Non- Hx Family Cardiac Disorders: Yes Hx Family Respiratory Disorders: Yes (COPD) Hx Family Cancer: Yes (Lung cancer,) Hx Family GI Disorders: No Hx Family Endocrine Disorder: No Hx Family Neuromuscular Disorders: No Hx Family Neurologic Disorders: No Hx Family HEENT Disorders: No Hx Family Autoimmune Disorders: No Brother Living Status: Internal Medicine - H&P: Meds Docusate [Colace] 100 mg PO BID #60 capsule 04/01/16 [Rx] Budesonide/Formoterol 80/4.5 [Symbicort 80/4.5] 1 puff IH BIDR 30 Days [Rx] Ipratropium/Albuterol Neb [Duoneb] 3 ml IH Q6HR PRN 30 Days 06/23/16 [Rx] Ondansetron [Zofran] 4 mg PO Q8HR #90 tablet 06/23/16 [Rx] Albuterol Sulfate [Albuterol Inhaler] 1 puff IH Q4H PRN #1 puff 06/26/16 [Rx] Furosemide [Lasix] 40 mg PO QAM 07/07/16 [History] Furosemide [Lasix] 20 mg PO HS 07/14/16 [History] Sennosides [Senna] 8.6 tab PO BID 07/14/16 [History] Sodium Chloride 1 gm PO BID 07/14/16 [History] ClonazePAM [Klonopin] 0.5 mg PO BID PRN #14 tablet 07/15/16 [Rx] Omeprazole [PriLOSEC] 40 mg PO DAILY@0630 #60 capsule. 07/15/16 [Rx] Dexamethasone [Decadron] 4 mg PO BID #25 tab 07/22/16 [Rx] Morphine Sulfate [Morphine Sulfate ER] 30 mg PO BID #60 cpmp.24hr 07/28/16 [Rx] Zolpidem [Ambien] 10 mg PO HS #30 tablet 08/05/16 [Rx] Oxycodone HCl 15 mg PO Q4H PRN #90 tablet 08/06/16 [Rx] Prochlorperazine Maleate [Compazine] 10 mg PO Q8HR #90 tablet 08/06/16 [Rx] Fludrocortisone Acetate [Florinef] 0.1 mg PO BID 08/16/16 [History] Allergies No Known Allergies Allergy (Verified 07/14/16 08:10) All Systems PM: A 10-system review of systems was performed and is negative for pertinent findings except as documented above in the HPI. - Constitutional Vitals: Temp Pulse Resp BP Pulse Ox 97.3 F L 79 15 154/97 99 08/16/16 15:49 08/16/16 15:49 08/16/16 15:49 08/16/16 15:49 08/16/16 15:49 General appearance: Present: A&O X 3 - Eye Eye exam: Present: PERRL, conjuntiva pink, sclera anicteric - Neck Neck exam general surgery: Absent: lymphadenopathy Additional comments: There is a small adherent subcutaneous mass measuring 3 cm in diameter in the right anterior cervical area, firm to palpation, nontender. No skin changes overlying the area no discharge or fluctuance palpated. - Respiratory Respiratory exam: Present: decreased breath sounds. Absent: accessory muscle use, rales, rhonchi, wheezes - Cardiovascular Cardiovascular exam: Present: RRR, +S1, +S2. Absent: diastolic murmur, gallop, rubs, systolic murmur - GI/Abdominal GI/Abdominal exam: Present: normal bowel sounds, soft, no peritoneal signs. Absent: distended, tenderness - Extremities Exam Extremities exam: Present: warm, radial pulses palpable and symetrical. Absent : calf tenderness, cyanotic, pedal edema - Neurological Exam Neurological exam: Present: CN II-XII intact, oriented X3, no focal deficits. Absent: pronater drift, facial droop, speech deficit - Skin Skin exam: Present: dry, intact Internal Med - H&P Results - Labs CBC & Chem 7: 08/16/16 12:58 08/16/16 12:58
[2016-08-16 16:47] LABS: Bilirubin,Urine Negative (Negative); Blood,Urine Negative (Negative); Clarity,Urine Clear (Clear); Color,Urine Yellow (Yellow); Glucose,Urine (UA) Normal (Normal); Ketones,Urine Negative (Negative); Leukocyte Esterase,Urine Negative (Negative); Nitrite,Urine Negative (Negative); Protein,Urine Negative (Neg-Trace); Specific Gravity,Urine 1.007 (1.010-1.025); Urobilinogen,Urine Normal (Normal)
[2016-08-16] MEDS: *HR* OxyCODONE Immed Rel 15 MG TABLET PO PRN (17:32)
[2016-08-16] MEDS: clonazePAM 0.5 MG TABLET PO PRN (17:33)
[2016-08-16] MEDS: Ipratropium/Albuterol Neb 3 ML IH SCH ×3 (19:30→23:11)
[2016-08-16] MEDS: Budesonide/Formoterol 80/4.5 MDI IH SCH (20:27)
[2016-08-16] MEDS: *HR* Morphine Sulfate SR (12 HR) 30 MG TABLET.ER PO SCH (20:54)
[2016-08-16] MEDS ORDERED: Sennosides 8.6 MG TABLET PO SCH ×2 (21:00)
[2016-08-16] MEDS: Sennosides 8.6 MG TABLET PO SCH (21:18)
[2016-08-16 21:33] LABS: BUN/Creatinine Ratio 8 (6-26); Blood Urea Nitrogen 6 mg/dL (8-26); Calcium 8.8 mg/dL (8.6-10.8); Carbon Dioxide 22 mEq/L (19-29); Chloride 84 mEq/L (98-109); Glucose 138 mg/dL (70-99); Osmolality,Calculated 244 (280-300); eGFR For African Americans > 60 (> 60); eGFR For Non-African Americans > 60 (> 60)
[2016-08-16 21:39] LABS: Potassium 4.5 mEq/L (3.5-4.5); Sodium 117 mEq/L (136-145)
[2016-08-17] MEDS: methylPREDNISolone 125 MG/2 ML VIAL IVP SCH ×4 (00:29→23:56)
[2016-08-17] MEDS: *HR* OxyCODONE Immed Rel 15 MG TABLET PO PRN ×4 (03:19→19:32)
[2016-08-17 03:38] LABS: Basophils % 0.3 %; Hematocrit 40.4 % (37.5-50.1); Hemoglobin 14.5 g/dL (12.9-16.9); Immature Granulocytes % 0.5 % (0-4); Lymphocytes # 0.2 K/mcL (0.6-4.6); Lymphocytes % 4.8 %; Mean Corpuscular HGB Conc 35.9 g/dL (31.6-35.5); Mean Corpuscular Hemoglobin 30.5 pg (28.0-33.3); Mean Corpuscular Volume 85.1 fL (83.0-100.0); Mean Platelet Volume 8.6 fL (9.4-12.4); Monocytes # 0.1 K/mcL (0.0-1.3); Monocytes % 2.7 %; Neutrophils # 3.4 K/mcL (1.6-8.9); Platelet Count 138 K/mcL (140-400); Red Blood Count 4.75 M/mcL (4.19-5.50); Red Cell Distribution Width 12.6 % (11.5-14.5); Segmented Neutrophils % 91.7 %
[2016-08-17 03:51] LABS: BUN/Creatinine Ratio 8 (6-26); Calcium 9.5 mg/dL (8.6-10.8); Carbon Dioxide 23 mEq/L (19-29); Chloride 86 mEq/L (98-109); Glucose 141 mg/dL (70-99); Magnesium 1.9 mg/dL (1.6-2.6); Osmolality,Calculated 248 (280-300); Potassium 4.7 mEq/L (3.5-4.5); eGFR For African Americans > 60 (> 60); eGFR For Non-African Americans > 60 (> 60)
[2016-08-17 03:53] LABS: Blood Urea Nitrogen 5 mg/dL (8-26)
[2016-08-17 03:54] LABS: Sodium 119 mEq/L (136-145)
[2016-08-17 03:56] LABS: Platelet Estimate Normal (Normal); Toxic Granulation Present (Not Present)
[2016-08-17] MEDS: Ipratropium/Albuterol Neb 3 ML IH SCH ×6 (04:28→23:41)
[2016-08-17] MEDS: *HR* Enoxaparin 40 MG/0.4 ML SYRINGE SQ SCH (05:16)
[2016-08-17] MEDS: *HR* Morphine Sulfate SR (12 HR) 30 MG TABLET.ER PO SCH ×2 (09:07→21:16)
[2016-08-17] MEDS: Sennosides 8.6 MG TABLET PO SCH ×2 (09:08→21:16)
[2016-08-17] MEDS: clonazePAM 0.5 MG TABLET PO PRN ×2 (09:12→23:56)
--- NOTE | 2016-08-17 09:20 | Oncology Inp Consult Note ---
Date of Encounter: 08/17/16 Time of Encounter: 09:00 Assessment and Plan (1) Acute exacerbation of chronic obstructive airways disease Status: Acute Assessment and plan: Patient has improved with treatment and is not short of breath at rest. He is on oxygen 2.5 L. History of lung cancer status post recent chest radiation in July 2016 or palliation of shortness of breath. 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 Patient to be seen subsequently after discharge in a week to resume his immunotherapy. Qualifiers: Laterality: left Qualified Code(s): C34.92 - Malignant neoplasm of unspecified part of left bronchus or lung (3) Pain Status: Acute Assessment and plan: Chronic pain without any acute worsening under control with oxycodone 15 mg every 4 hours when necessary and morphine 30 twice daily. He is continued on his home medications. (4) Hyponatremia Status: Chronic Assessment and plan: Chronic with acute worsening serum osmolality lobe consistent with SIADH. TSH and cortisol checked recently where within normal limits. Hyponatremia has improved with 0.9 normal saline hydration. He is on sodium tablets orally at home. Other electrolyte abnormalities, noted and being supplemented. Plan of care was discussed with patient bedise. (5) Brain metastasis Status: Chronic Assessment and plan: Age for disease with brain metastases treated with CyberKnife in the [place] prior to beginning treatment for lung cancer as well as with recurrence and retreatment with CyberKnife in July 2016. He denies any headache or neurologic symptoms today. - Data of Consult Requesting Physician: Xander Louie MD Primary Care Provider: PCP NO - Consult Narrative Reason for consult: lung ca, shortness of breath History of present illness: Mr. 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 Locke is a 51 year old male with medical history significant for chronic tobacco abuse, history of COPD, chronic hyponatremia , whoa had initially in had a CT angiogram for SOB that showed extensive mediastinal and hilar lymphadenopathy and left hilar mass suspicious for small cell carcinoma anticipating the bronchial branches of the left pulmonary artery was noted. Subcarinal lymphadenopathy measuring 4.2 x 2.6 cm lymph node along the aorta measuring 3.2 x 1.8 cm and right hilar lymphadenopathy. Left upper lobe patchy infiltrate [place] up to 2 cm soft tissue mass in the left lower lobe 2 x 1.5 cm and a right lower lobe nodule measuring 1.1 x 0.7 cm. Patient underwent a bronchoscopy procedure bx showed malignant cells but immunostains not performed as sample was inadequate. He was hospitalized at [facility] again for SOB and hyponatremia. He underwent bx rt lower cervical LN and final path is showing poorly differentiated carcinoma-- squamous per Dr Muniz pathologist at [facility]. PET imaging shows uptake in left axilla left hilar mass, left lower cervical right lower; right axilla. 01/18 MRI BRAIN [facility]--01/01/16-- MRI brain showed a focal enhancing lesion in the posterior aspect of the right cingulate gyrus likely due to metastatic disease. He underwent cyberknife Rx to brain 01/18 Started carbotaxol systemic therapy first line completed 6 cycles (05/21) CT imaging after C4--decrease in mediastinal, hilar adenopathy 04/20. CT after 6 cycles--slight incr axillary adenopathy, increased thickening STEPHANI mass, ?lymphangitic spread, increase adrenal mets. Rt neck LN clinically bigger and causing pain MRI brain 06/20--rt parietal and occipital lesions few mm size with enhancement. He underwent another cyber knife Rx in . He was hospitalized in with SOB--CTA incr left axillary rt neck, rt infraclav adenopathy, left main stem bronchus compression and encasing vasculature. He underwent palliative RT chest and rt neck for enlarging LN/mass--. His Rx was switched to nivolumab, so far received C1 08/22 due to the above. Hospitalized with shortness of breath for 3 days in duration prior to admission. He also has a dry cough. He denies any other cold symptoms or fever. CXR showed no acute findings 08/16/16 Overall this generally weak and poor appetite. He is able to eat his breakfast this morning and shortness of breath has improved significantly since admission. He is currently on 2.5 L of oxygen. Hyponatremia was significant at 114 on admission improved to 119 today. He is due for his pain medications as he is having generalized pain. Past Med Surg Social Fam HX - Past Medical History Medical history: arthritis, cancer, COPD, other Psychiatric history: no psych history - Past Surgical History Surgical History: other - Social History Smoking Status: Current every day smoker Smokeless Tobacco Status: No Alcohol use: heavy Drug use: none - Family History Father Family Member Ethnicity: Non- Hx Family Cardiac Disorders: Yes Hx Family Respiratory Disorders: Yes (COPD) Hx Family Cancer: Yes (Lung cancer,) Hx Family GI Disorders: No Hx Family Endocrine Disorder: No Hx Family Neuromuscular Disorders: No Hx Family Neurologic Disorders: No Hx Family HEENT Disorders: No Hx Family Autoimmune Disorders: No Brother Living Status: Medications and Allergies Docusate [Colace] 100 mg PO BID #60 capsule 04/01/16 [Rx] Budesonide/Formoterol 80/4.5 [Symbicort 80/4.5] 1 puff IH BIDR 30 Days [Rx] Ipratropium/Albuterol Neb [Duoneb] 3 ml IH Q6HR PRN 30 Days 06/23/16 [Rx] Ondansetron [Zofran] 4 mg PO Q8HR #90 tablet 06/23/16 [Rx] Albuterol Sulfate [Albuterol Inhaler] 1 puff IH Q4H PRN #1 puff 06/26/16 [Rx] Furosemide [Lasix] 40 mg PO QAM 07/07/16 [History] Furosemide [Lasix] 20 mg PO HS 07/14/16 [History] Sennosides [Senna] 8.6 tab PO BID 07/14/16 [History] Sodium Chloride 1 gm PO BID 07/14/16 [History] ClonazePAM [Klonopin] 0.5 mg PO BID PRN #14 tablet 07/15/16 [Rx] Dexamethasone [Decadron] 4 mg PO BID #25 tab 07/22/16 [Rx] Morphine Sulfate [Morphine Sulfate ER] 30 mg PO BID #60 cpmp.24hr 07/28/16 [Rx] Zolpidem [Ambien] 10 mg PO HS #30 tablet 08/05/16 [Rx] Oxycodone HCl 15 mg PO Q4H PRN #90 tablet 08/06/16 [Rx] Prochlorperazine Maleate [Compazine] 10 mg PO Q8HR #90 tablet 08/06/16 [Rx] Fludrocortisone Acetate [Florinef] 0.1 mg PO BID 08/16/16 [History] Omeprazole [PriLOSEC] 40 mg PO DAILY 08/16/16 [History] Allergies No Known Allergies Allergy (Verified 07/14/16 08:10) Review of systems: as in HPI Oncology - Exam - Constitutional Vitals: Temp Pulse Resp BP Pulse Ox 97.4 F L 76 16 140/86 95 08/17/16 07:00 08/17/16 07:00 08/17/16 07:00 08/17/16 07:00 08/17/16 07:00 General appearance: thin Exam: no ac distress at rest - Head Head exam: Present: atraumatic, normal inspection - Eye Eye exam: Present: sclera anicteric - ENT ENT exam: Present: mucous membranes moist Additional comments: O2 NC - Neck Additional comments: rt neck adenopathy softer - Respiratory Additional comments: Brant decreased ae no wheeze - Cardiovascular Cardiovascular exam: Present: +S1, +S2 - GI/Abdominal GI/Abdominal exam: Present: normal bowel sounds, soft - Extremities Exam Additional comments: no pedal edema - Neurological Exam Neurological exam: Present: alert, CN II-XII intact, oriented X3 - Skin Skin exam: Present: normal color Oncology - Results - Labs Labs: Short CBC 08/17/16 Range/Units 03:30 WBC 3.7 L (4.3-11.1) K/mcL Hgb 14.5 (12.9-16.9) g/dL Hct 40.4 (37.5-50.1) % Plt Count 138 L (140-400) K/mcL Neutrophils # 3.4 (1.6-8.9) K/mcL BMP 08/16/16 08/17/16 20:52 03:30 Sodium 117 L* 119 L* Potassium 4.5 D 4.7 H Chloride 84 L 86 L Carbon Dioxide 22 23 BUN 6 L 5 L Creatinine 0.77 0.62 L Glucose 138 H 141 H Calcium 8.8 9.5 Cardiac Enzymes 08/16/16 08/17/16 Range/Units 20:52 03:30 Troponin I 0.00 0.00 (0-0.03) ng/mL Urine 08/16/16 Range/Units 16:16 Urine Color Yellow (Yellow) Urine Clarity Clear (Clear) Urine pH 7.0 (5.0-8.0) pH Units Ur Specific [place] 1.007 L (1.010-1.025) Urine Protein Negative (Neg-Trace) mg/dL Urine Glucose (UA) Normal (Normal) mg/dL - Imaging and Cardiology Chest x-ray Status: image reviewed by me Consult Discharge Plan - Plan Referrals: NO,PCP [Primary Care Provider] -
[2016-08-17] MEDS: Budesonide/Formoterol 80/4.5 MDI IH SCH ×2 (09:40→20:28)
--- NOTE | 2016-08-17 14:08 | Electrocardiograph Report ---
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
--- NOTE | 2016-08-17 14:08 | Internal Med Progress Note ---
Date of Encounter: 08/17/16 Time of Encounter: 14:08 - Assessment and plan (1) Acute exacerbation of chronic obstructive airways disease Current Visit: Yes Status: Acute Assessment and plan: COPD exacerbation: -Blood culture ordered and after blood culture patient and get IV levofloxacin 750 mg every day -Patient is on IV methylprednisone. -Patient is on inhaled bronchodilators. We will continue treatment for COPD exacerbation. (2) Hyponatremia Current Visit: Yes Status: Chronic Assessment and plan: Patient is known to have SIADH. Upon admission sodium was 117. 24 hours post admission :sodium is now 121 Will continue replacement very gradually (3) Metastatic lung cancer (metastasis from lung to other site) Current Visit: No Status: Chronic Assessment and plan: Metastatic lung cancer. Oncology on the board. We will follow the recommendations from oncology. Qualifiers: Laterality: left Qualified Code(s): C34.92 - Malignant neoplasm of unspecified part of left bronchus or lung (4) Brain metastasis Current Visit: No Status: Chronic Assessment and plan: Known to have a brain metastasis. Will follow recommendations from oncology. - Subjective Interval history: seen and examined. chart reviewed. Asim has shortness of breath and cough. Patient has a mucopurulent expectoration. - Constitutional Vitals: Temp Pulse Resp BP Pulse Ox 97.4 F L 87 16 130/78 97 08/17/16 11:02 08/17/16 11:02 08/17/16 11:02 08/17/16 11:02 08/17/16 11:02 General appearance: Present: A&O X 3 - Head Head exam: Present: atraumatic, normocephalic - Eye Eye exam: Present: PERRL, conjuntiva pink, sclera anicteric Pupils: Present: PERRL - Neck Neck exam general surgery: Present: supple, trachea midline. Absent: lymphadenopathy - Respiratory Respiratory exam: Present: CTAB. Absent: accessory muscle use, rales, rhonchi, wheezes - Cardiovascular Cardiovascular exam: Present: RRR, +S1, +S2. Absent: diastolic murmur, gallop, rubs, systolic murmur - GI/Abdominal GI/Abdominal exam: Present: normal bowel sounds, soft, no peritoneal signs. Absent: distended, tenderness - Extremities Exam Extremities exam: Present: warm, radial pulses palpable and symetrical. Absent : calf tenderness, cyanotic, pedal edema - Neurological Exam Neurological exam: Present: CN II-XII intact, oriented X3, no focal deficits. Absent: pronater drift, facial droop, speech deficit - Skin Skin exam: Present: dry, intact Internal Medicine: Result - Labs CBC & Chem 7: 08/17/16 03:30 08/17/16 14:35 Labs: Short CBC 08/17/16 Range/Units 03:30 WBC 3.7 L (4.3-11.1) K/mcL Hgb 14.5 (12.9-16.9) g/dL Hct 40.4 (37.5-50.1) % Plt Count 138 L (140-400) K/mcL Neutrophils # 3.4 (1.6-8.9) K/mcL BMP 08/16/16 08/17/16 20:52 03:30 Sodium 117 L* 119 L* Potassium 4.5 D 4.7 H Chloride 84 L 86 L Carbon Dioxide 22 23 BUN 6 L 5 L Creatinine 0.77 0.62 L Glucose 138 H 141 H Calcium 8.8 9.5 Cardiac Enzymes 08/16/16 08/17/16 Range/Units 20:52 03:30 Troponin I 0.00 0.00 (0-0.03) ng/mL Urine 08/16/16 Range/Units 16:16 Urine Color Yellow (Yellow) Urine Clarity Clear (Clear) Urine pH 7.0 (5.0-8.0) pH Units Ur Specific [place] 1.007 L (1.010-1.025) Urine Protein Negative (Neg-Trace) mg/dL Urine Glucose (UA) Normal (Normal) mg/dL - ABG Interpretation ABG results: PT/INR, D-dimer PT 12.1 Seconds (9.4-12.1) 08/16/16 12:58 Consult Discharge Plan - Plan Referrals: NO,PCP [Primary Care Provider] -
[2016-08-17 14:56] LABS: BUN/Creatinine Ratio 18 (6-26); Blood Urea Nitrogen 12 mg/dL (8-26); Calcium 8.9 mg/dL (8.6-10.8); Carbon Dioxide 22 mEq/L (19-29); Chloride 91 mEq/L (98-109); Glucose 163 mg/dL (70-99); Osmolality,Calculated 255 (280-300); Potassium 4.5 mEq/L (3.5-4.5); Sodium 121 mEq/L (136-145); eGFR For African Americans > 60 (> 60); eGFR For Non-African Americans > 60 (> 60)
[2016-08-17] MEDS ORDERED: Levofloxacin 750 MG/150 ML 750 MG/150 ML BAG IVPB SCH (18:00)
[2016-08-18] MEDS: *HR* OxyCODONE Immed Rel 15 MG TABLET PO PRN ×2 (04:13)
[2016-08-18 05:00] LABS: Hematocrit 36.1 % (37.5-50.1); Immature Granulocytes % 0.8 % (0-4); Lymphocytes # 0.2 K/mcL (0.6-4.6); Lymphocytes % 2.5 %; Mean Corpuscular HGB Conc 35.7 g/dL (31.6-35.5); Mean Corpuscular Hemoglobin 31.2 pg (28.0-33.3); Mean Corpuscular Volume 87.4 fL (83.0-100.0); Mean Platelet Volume 8.5 fL (9.4-12.4); Monocytes # 0.3 K/mcL (0.0-1.3); Monocytes % 4.1 %; Neutrophils # 5.7 K/mcL (1.6-8.9); Platelet Count 151 K/mcL (140-400); Red Blood Count 4.13 M/mcL (4.19-5.50); Segmented Neutrophils % 92.6 %
[2016-08-18 05:02] LABS: Hemoglobin 12.9 g/dL (12.9-16.9)
[2016-08-18 05:06] LABS: Alanine Aminotransferase 8 Units/L (0-55); Albumin 2.9 g/dL (3.5-5.0); Albumin/Globulin Ratio 0.9 (1.1-2.2); Alkaline Phosphatase 168 Units/L (38-126); Aspartate Amino Transferase 14 Units/L (5-34); BUN/Creatinine Ratio 18 (6-26); Bilirubin,Total 0.3 mg/dL (0.2-1.2); Blood Urea Nitrogen 11 mg/dL (8-26); Calcium 9.4 mg/dL (8.6-10.8); Carbon Dioxide 22 mEq/L (19-29); Chloride 91 mEq/L (98-109); Globulin 3.4 g/dL (2.4-3.5); Glucose 123 mg/dL (70-99); Osmolality,Calculated 257 (280-300); Potassium 4.7 mEq/L (3.5-4.5); Sodium 123 mEq/L (136-145); Total Protein 6.3 g/dL (6.0-8.3); eGFR For African Americans > 60 (> 60); eGFR For Non-African Americans > 60 (> 60)
[2016-08-18] MEDS: Ipratropium/Albuterol Neb 3 ML IH SCH ×3 (05:15→11:28)
[2016-08-18 05:24] LABS: Platelet Estimate Normal (Normal)
[2016-08-18] MEDS: *HR* Enoxaparin 40 MG/0.4 ML SYRINGE SQ SCH (06:01)
[2016-08-18 06:37] VITALS: BP 143/99
[2016-08-18] MEDS: Budesonide/Formoterol 80/4.5 MDI IH SCH (07:54)
[2016-08-18] MEDS: methylPREDNISolone 125 MG/2 ML VIAL IVP SCH (09:36)
[2016-08-18] MEDS: *HR* Morphine Sulfate SR (12 HR) 30 MG TABLET.ER PO SCH (09:37)
[2016-08-18] MEDS: Sennosides 8.6 MG TABLET PO SCH (09:37)
--- NOTE | 2016-08-18 10:59 | Discharge Summary ---
<Esau Munizssfan Rodriguez - Last Filed: 08/18/16 17:45> Date of Encounter: 08/18/16 Time of Encounter: 10:57 - Discharge Diagnosis (1) Acute exacerbation of chronic obstructive airways disease Priority: Primary Status: Resolved Comments: Patient clinically improved, responded to IV steroids, IH bronchodilators, O2 supplementation Patient has qualified for home O2, will require 3L Discharge to home on dexamethasone taper Duonebs q4 hr prn Levaquin 750mg q day x 10 days (2) Hyponatremia Priority: Secondary Status: Resolved Comments: Patient is known to have SIADH Sodium replacement gradually Continue NaCl 1g TID (3) Metastatic lung cancer (metastasis from lung to other site) Priority: Secondary Status: Chronic Comments: Will follow with Oncology Qualifiers: Laterality: left Qualified Code(s): C34.92 - Malignant neoplasm of unspecified part of left bronchus or lung (4) Brain metastasis Priority: Secondary Status: Chronic Comments: Follows with Oncology - Discharge Medications Prescriptions: Ipratropium/Albuterol Neb [Duoneb] 3 ml IH [id number] 30 Days Dexamethasone [Decadron] 4 mg PO BID #90 tab Levofloxacin [Levaquin] 750 mg PO DAILY #10 tablet Potassium Chloride 20 meq PO DAILY #30 tab.er.prt Sodium Chloride 1 gm PO TID #90 tablet Home Medications: Docusate [Colace] 100 mg PO BID #60 capsule 04/01/16 [Rx] Budesonide/Formoterol 80/4.5 [Symbicort 80/4.5] 1 puff IH BIDR 30 Days [Rx] Ondansetron [Zofran] 4 mg PO Q8HR #90 tablet 06/23/16 [Rx] Albuterol Sulfate [Albuterol Inhaler] 1 puff IH Q4H PRN #1 puff 06/26/16 [Rx] Furosemide [Lasix] 40 mg PO QAM 07/07/16 [History] Furosemide [Lasix] 20 mg PO HS 07/14/16 [History] Sennosides [Senna] 8.6 tab PO BID 07/14/16 [History] ClonazePAM [Klonopin] 0.5 mg PO BID PRN #14 tablet 07/15/16 [Rx] Morphine Sulfate [Morphine Sulfate ER] 30 mg PO BID #60 cpmp.24hr 07/28/16 [Rx] Zolpidem [Ambien] 10 mg PO HS #30 tablet 08/05/16 [Rx] Oxycodone HCl 15 mg PO Q4H PRN #90 tablet 08/06/16 [Rx] Prochlorperazine Maleate [Compazine] 10 mg PO Q8HR #90 tablet 08/06/16 [Rx] Fludrocortisone Acetate [Florinef] 0.1 mg PO BID 08/16/16 [History] Omeprazole [PriLOSEC] 40 mg PO DAILY 08/16/16 [History] Dexamethasone [Decadron] 4 mg PO BID #90 tab 08/18/16 [Rx] Ipratropium/Albuterol Neb [Duoneb] 3 ml IH [id number] 30 Days 08/18/16 [Rx] Levofloxacin [Levaquin] 750 mg PO DAILY #10 tablet 08/18/16 [Rx] Potassium Chloride 20 meq PO DAILY #30 tab.er.prt 08/18/16 [Rx] Sodium Chloride 1 gm PO TID #90 tablet 08/18/16 [Rx] Allergies/Adverse Reactions: Allergies No Known Allergies Allergy (Verified 07/14/16 08:10) Procedures/tests Complete & Pending: outpatient chemistry panel on Monday, August 22, 2016 Date of admission: 08/16/16 16:05 Primary care physician: PCP NO Consults: 08/16/16 16:51 Consult to Nutrition [CONS] Routine Comment: Consulting Provider: NUTRITION Reason for Dietary Consult: Supplemental Nutrition Consult to Oncology [CONS] Routine Consulting Provider: [facility] Reason for Consult: Metastatic lung cancer Time Notified: 16:52 Call Completed: Yes Discharging clinician: Xander Louie Anticipated date of discharge: 08/18/16 - Patient Status Disposition: Home, Self-Care Condition: Fair Overall status at discharge: patient is progressing back to baseline - Discharge Instructions Instructions: Chest Pain (DC), Chronic Obstructive Pulmonary Disease (DC) Follow Up With: Sumi Guzman MD [Partnered Physician] - 08/25/16 12:40 pm NO,PCP [Non-Partnered Physician] - Additional Instructions: CHEMOTHERAPY APPOINTMENT HAS BEEN CANCELLED FOR THE Aug. [facility] . PER DR. KRISTEN. - Diet and Activity Activity: increase activity as tolerated Diet: advance to your usual diet, other (fluid restriction 1500mL/day) Hospital course: Mr. Locke is a 51 year old male who presented to the hospital with dyspnea. He had associated dry cough and mucopurulent sputum production and left-sided chest pain for the last few months. He is known to have small cell lung cancer , chronic tobacco abuse, and COPD. CXR was without acute cardiopulmonary process. Patient was admitted and treated with IV methylpredniolone, IH bronchodilators, and supplemental O2. Patient is clinically improved. However , he has qualified for home O2. O2 sat with patient sitting on bedside 87% this morning. He will benefit from home O2 supplementation at 3L. He will be discharged on oral steroid taper, IH bronchodilators, and Levaquin to cover coinfection/superinfection. Oncology is following patient. Patient will see oncology next week to resume immunotherapy. - Time Spent with Patient Total time spent providing and/or coordinating discharge services: Less than 30 minutes Specific discharge activities: Fluid restriction 1500mL/day - Constitutional Vitals: Temp Pulse Resp BP Pulse Ox 97.5 F L 85 18 143/99 95 08/18/16 06:34 08/18/16 06:34 08/18/16 07:53 08/18/16 06:34 08/18/16 09:59 General appearance: Present: cachectic, A&O X 3, pleasant, answers questions appropriately Exam: Very emotional and tearful during exam. - Head Head exam: Present: atraumatic, normal inspection, normocephalic - Eye Eye exam: Present: EOMI - ENT ENT exam: Present: mucous membranes moist - Neck Neck exam general surgery: Present: full ROM, lymphadenopathy - Respiratory Respiratory exam: Present: accessory muscle use (increased work of respiration) , CTAB. Absent: respiratory distress, rhonchi, wheezes - Cardiovascular Cardiovascular exam: Present: RRR, +S1, +S2 - GI/Abdominal GI/Abdominal exam: Present: soft. Absent: tenderness, no peritoneal signs - Extremities Exam Extremities exam: Present: warm. Absent: pedal edema, tenderness - Neurological Exam Neurological exam: Present: CN II-XII intact. Absent: facial droop, speech deficit - Psychiatric Psychiatric exam: Present: normal mood (tearful, however unwilling to discuss his emotions. he states that he is a very private person. ) - Skin Skin exam: Present: dry, warm <Xander Louie P - Last Filed: 08/18/16 17:53> Date of Encounter: 08/18/16 - Discharge Diagnosis (1) Acute exacerbation of chronic obstructive airways disease Status: Acute (2) Hyponatremia Status: Chronic (3) Metastatic lung cancer (metastasis from lung to other site) Status: Chronic Qualifiers: Laterality: left Qualified Code(s): C34.92 - Malignant neoplasm of unspecified part of left bronchus or lung (4) Brain metastasis Status: Chronic Date of admission: 08/16/16 16:05 Primary care physician: Juma French DO Consults: 08/16/16 16:51 Consult to Nutrition [CONS] Routine Comment: Consulting Provider: NUTRITION Reason for Dietary Consult: Supplemental Nutrition Consult to Oncology [CONS] Routine Consulting Provider: [facility] Reason for Consult: Metastatic lung cancer Time Notified: 16:52 Call Completed: Yes 08/18/16 11:40 Consult to Finance Professional [CONS] Routine Reason for SW Consult: qualified for home oxygen would like to use nani Hospital course: Mr. Locke is a 51 year old male - Time Spent with Patient Total time spent providing and/or coordinating discharge services: - Constitutional Vitals: Temp Pulse Resp BP Pulse Ox 97.5 F L 85 18 143/99 95 08/18/16 06:34 08/18/16 06:34 08/18/16 07:53 08/18/16 06:34 08/18/16 09:59 - Attending Attestation I examined this patient and my medical decision-making was reviewed with the SLIMER/PA/Advanced Practice Nurse/Resident Physician. I agree with the documented findings, disposition and treatment plan as described except to the extent set forth below.
== END 2016-08-18 18:35 | disposition home or self-care (01) | DRG 140 ==
LOC: 2NENU 11:45 → EMEROO 11:45 → 2NENU 15:30
PROVIDERS: ADMIT Internal Medicine; ATTEND Internal Medicine

== ENCOUNTER 2016-08-24 14:53 | Inpatient (IN) ==
[2016-08-24] MEDS ORDERED: methylPREDNISolone 125 MG/2 ML VIAL IVP ONE (15:11)
[2016-08-24] MEDS ORDERED: Ipratropium/Albuterol Neb 3 ML IH ONE (15:11)
[2016-08-24] MEDS ORDERED: Bacitracin/PolymyxinB OINT 14.17 GM TUBE TP ONE (15:12)
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
[2016-08-24 16:23] LABS: BUN/Creatinine Ratio 8 (6-26); Blood Urea Nitrogen 4 mg/dL (8-26); Calcium 8.8 mg/dL (8.6-10.8); Carbon Dioxide 21 mEq/L (19-29); Chloride 80 mEq/L (98-109); Glucose 113 mg/dL (70-99); Osmolality,Calculated 230 (280-300); Potassium 4.2 mEq/L (3.5-4.5); eGFR For African Americans > 60 (> 60); eGFR For Non-African Americans > 60 (> 60)
[2016-08-24 16:25] LABS: Sodium 111 mEq/L (136-145)
[2016-08-24] MEDS ORDERED: 0.9 % Sodium Chloride 1,000 ML IV ONE (16:36)
[2016-08-24] MEDS ORDERED: Furosemide 20 MG/2 ML VIAL IVP ONE (16:55)
[2016-08-24 17:00] LABS: Basophils % 0.2 %; Hematocrit 37.8 % (37.5-50.1); Hemoglobin 13.7 g/dL (12.9-16.9); Immature Granulocytes % 3.6 % (0-4); Lymphocytes # 0.3 K/mcL (0.6-4.6); Lymphocytes % 5.8 %; Mean Corpuscular HGB Conc 36.2 g/dL (31.6-35.5); Mean Corpuscular Hemoglobin 30.9 pg (28.0-33.3); Mean Corpuscular Volume 85.3 fL (83.0-100.0); Mean Platelet Volume 7.3 fL (9.4-12.4); Monocytes # 0.3 K/mcL (0.0-1.3); Monocytes % 5.6 %; Neutrophils # 3.8 K/mcL (1.6-8.9); Platelet Count 205 K/mcL (140-400); Red Blood Count 4.43 M/mcL (4.19-5.50); Red Cell Distribution Width 13.1 % (11.5-14.5); Segmented Neutrophils % 84.8 %
[2016-08-24 17:42] LABS: Thyroid Stimulating Hormone 0.282 mcIU/mL (0.350-4.840)
[2016-08-24 18:49] LABS: BUN/Creatinine Ratio 6 (6-26); Calcium 8.8 mg/dL (8.6-10.8); Carbon Dioxide 21 mEq/L (19-29); Chloride 79 mEq/L (98-109); Glucose 122 mg/dL (70-99); Osmolality,Calculated 238 (280-300); Potassium 3.5 mEq/L (3.5-4.5); eGFR For African Americans > 60 (> 60); eGFR For Non-African Americans > 60 (> 60)
[2016-08-24 18:50] LABS: Blood Urea Nitrogen 4 mg/dL (8-26)
[2016-08-24 18:52] LABS: Sodium 115 mEq/L (136-145)
[2016-08-24] MEDS ORDERED: *HR* HYDROmorphone (PF) 1 MG/ML SYRINGE IVP ONE (18:52)
[2016-08-24] MEDS ORDERED: Ondansetron 4 MG/2 ML VIAL IVP PRN (21:39)
[2016-08-24] MEDS ORDERED: Naloxone 0.4 MG/ML INJ IVP PRN (21:39)
[2016-08-24] MEDS ORDERED: Acetaminophen 325 MG TABLET PO PRN (21:39)
[2016-08-24] MEDS ORDERED: 0.9 % Sodium Chloride 1,000 ML IVC SCH (21:45)
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
[2016-08-24] MEDS: clonazePAM 0.5 MG TABLET PO PRN (22:47)
[2016-08-24] MEDS: *HR* OxyCODONE Immed Rel 15 MG TABLET PO PRN (22:47)
[2016-08-25] MEDS: Ipratropium/Albuterol Neb 3 ML IH SCH ×6 (01:32→20:12)
[2016-08-25 04:05] LABS: Eosinophils % 0.2 %; Hematocrit 35.7 % (37.5-50.1); Immature Granulocytes % 1.2 % (0-4); Lymphocytes # 0.4 K/mcL (0.6-4.6); Lymphocytes % 7.2 %; Mean Corpuscular HGB Conc 36.4 g/dL (31.6-35.5); Mean Corpuscular Hemoglobin 30.7 pg (28.0-33.3); Mean Corpuscular Volume 84.2 fL (83.0-100.0); Mean Platelet Volume 7.6 fL (9.4-12.4); Monocytes # 0.7 K/mcL (0.0-1.3); Monocytes % 11.7 %; Neutrophils # 4.6 K/mcL (1.6-8.9); Platelet Count 186 K/mcL (140-400); Red Blood Count 4.24 M/mcL (4.19-5.50); Red Cell Distribution Width 13.2 % (11.5-14.5); Segmented Neutrophils % 79.7 %
[2016-08-25 04:19] LABS: BUN/Creatinine Ratio 9 (6-26); Calcium 8.9 mg/dL (8.6-10.8); Carbon Dioxide 21 mEq/L (19-29); Chloride 88 mEq/L (98-109); Glucose 108 mg/dL (70-99); Magnesium 1.7 mg/dL (1.6-2.6); Osmolality,Calculated 246 (280-300); eGFR For African Americans > 60 (> 60); eGFR For Non-African Americans > 60 (> 60)
[2016-08-25 04:22] LABS: Blood Urea Nitrogen 5 mg/dL (8-26)
[2016-08-25 04:25] LABS: Sodium 119 mEq/L (136-145)
[2016-08-25] MEDS: *HR* OxyCODONE Immed Rel 15 MG TABLET PO PRN ×4 (06:41→23:42)
[2016-08-25] MEDS: *HR* Morphine 2 MG/ML SYRINGE IVP PRN ×2 (06:41→18:05)
[2016-08-25] MEDS: *HR* Enoxaparin 40 MG/0.4 ML SYRINGE SQ SCH (06:42)
[2016-08-25] MEDS: Budesonide/Formoterol 160/4.5 MDI IH SCH ×2 (07:58→20:12)
[2016-08-25] MEDS: (Breo Ellipta 100-25 Mcg Inh) IH SCH (08:28)
[2016-08-25] MEDS: Furosemide 20 MG TABLET PO SCH (08:35)
[2016-08-25] MEDS: Sennosides 8.6 MG TABLET PO SCH ×2 (08:35→20:02)
[2016-08-25] MEDS: levoFLOXacin 750 MG TABLET PO SCH (08:35)
[2016-08-25] MEDS: *HR* Morphine Sulfate SR (12 HR) 30 MG TABLET.ER PO SCH ×2 (08:35→20:02)
[2016-08-25] MEDS: clonazePAM 0.5 MG TABLET PO PRN ×2 (09:24→20:02)
--- NOTE | 2016-08-25 12:14 | Internal Med Progress Note ---
Date of Encounter: 08/25/16 Time of Encounter: 09:00 - Assessment and plan (1) Chronic pain Current Visit: Yes Status: Acute Assessment and plan: Continue home medication for pain management Qualifiers: Chronic pain type: chronic pain syndrome Qualified Code(s): G89.4 - Chronic pain syndrome (2) Generalized anxiety disorder Current Visit: Yes Status: Acute Assessment and plan: Continue home medication (3) Hyponatremia Current Visit: Yes Status: Acute Assessment and plan: Patient has a chronic hyponatremia. However, his sodium level is extremely low in the ER, which was 111. He was given normal saline and Lasix, his sodium level increased to 123 now. Will hold normal saline, and the Lasix. Will give D5 in water to avoid quick correction. Closely monitor sodium level. (4) Tobacco abuse disorder Current Visit: Yes Status: Acute Assessment and plan: Smoking cessation education. (5) Metastatic lung cancer (metastasis from lung to other site) Current Visit: Yes Status: Chronic Assessment and plan: We will consult oncology and palliative care. Qualifiers: Laterality: unspecified laterality Qualified Code(s): C34.90 - Malignant neoplasm of unspecified part of unspecified bronchus or lung (6) DVT prophylaxis Current Visit: No Status: Acute Assessment and plan: Lovenox subcutaneously (7) COPD (chronic obstructive pulmonary disease) Current Visit: No Status: Chronic Assessment and plan: No signs of Exacerbation. Patient was just discharged from hospital for COPD exacerbation on 08/18. still on Levaquin from last discharge. Qualifiers: COPD type: unspecified COPD Qualified Code(s): J44.9 - Chronic obstructive pulmonary disease, unspecified (8) Cachexia Current Visit: No Status: Chronic Assessment and plan: Continue supportive treatment - Time Spent With Patient 25 - 35 minutes - Subjective Interval history: Patient is a 51-year-old male admitted for hyponatremia. His past medical history is significant for metastasis lung cancer, COPD, tobacco abuse. Patient was seen and examined. He is awake alert, oriented 3. In no acute or respiratory distress. Vitals are stable. Slow improvement of hyponatremia. We will continue to closely monitor her sodium level and avoid quick correction. Continue closely monitor patient. Oncology and palliative care consult was called. - Constitutional Vitals: Temp Pulse Resp BP Pulse Ox 97.6 F 103 16 100/63 98 08/25/16 11:44 08/25/16 11:44 02/20/17 11:44 08/25/16 11:44 08/25/16 11:24 General appearance: Present: A&O X 3, no acute distress, answers questions appropriately - Head Head exam: Present: atraumatic, normocephalic - Eye Eye exam: Present: PERRL, conjuntiva pink, sclera anicteric Pupils: Present: PERRL - Neck Neck exam general surgery: Present: supple, trachea midline. Absent: lymphadenopathy - Respiratory Respiratory exam: Present: decreased breath sounds (On left side), CTAB. Absent : accessory muscle use, rales, rhonchi, wheezes - Cardiovascular Cardiovascular exam: Present: RRR, +S1, +S2. Absent: diastolic murmur, gallop, rubs, systolic murmur - GI/Abdominal GI/Abdominal exam: Present: normal bowel sounds, soft, no peritoneal signs. Absent: distended, tenderness - Extremities Exam Extremities exam: Present: warm, radial pulses palpable and symetrical. Absent : calf tenderness, cyanotic, pedal edema - Neurological Exam Neurological exam: Present: CN II-XII intact, oriented X3, no focal deficits. Absent: pronater drift, facial droop, speech deficit - Skin Skin exam: Present: dry, intact Internal Medicine: Result - Labs CBC & Chem 7: 08/25/16 03:13 08/25/16 11:21 Labs: Short CBC 08/25/16 Range/Units 03:13 WBC 5.7 (4.3-11.1) K/mcL Hgb 13.0 (12.9-16.9) g/dL Hct 35.7 L (37.5-50.1) % Plt Count 186 (140-400) K/mcL Neutrophils # 4.6 (1.6-8.9) K/mcL BMP 08/24/16 08/25/16 08/25/16 22:36 03:13 03:13 Sodium 116 L* 118 L* 119 L* Potassium 4.0 Chloride 88 L Carbon Dioxide 21 BUN 5 L Creatinine 0.54 L Glucose 108 H Calcium 8.9 08/25/16 08/25/16 05:46 11:21 Sodium 119 L* 123 L Potassium Chloride Carbon Dioxide BUN Creatinine Glucose Calcium Cardiac Enzymes 08/24/16 08/25/16 Range/Units 22:36 03:13 Troponin I 0.00 0.01 (0-0.03) ng/mL Consult Discharge Plan - Plan Referrals: Juma French DO [Primary Care Provider] - (SENT EMAIL TO [facility] TO GET AN FOLLOW UP APPOINTMENT ON 08-25-16 @ [id number])
[2016-08-25] MEDS ORDERED: D5% in Water 1,000 ML IVC SCH (12:30)
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
--- NOTE | 2016-08-25 16:43 | Nephrology Consult Note ---
Date of Encounter: 08/25/16 Time of Encounter: 16:41 Assessment and Plan (1) Hyponatremia Current Visit: Yes Status: Acute Patient has hyponatremia likely from poor intake and possibly ongoing fluid ingestion. His baseline sodium level is in the mid 120s possibly from a reset osmostat. Goal correction for 24 hours is 115-118, max 120. Agree with change to D5. Will need to monitor sodium level closely. Can increase the rate of D5 if needed to get the sodium level back to goal for 24 hour period of time. Patient has a low TSH. Will check free T4 and Total T3. (2) Metastatic lung cancer (metastasis from lung to other site) Current Visit: Yes Status: Chronic per oncology. Qualifiers: Laterality: unspecified laterality Qualified Code(s): C34.90 - Malignant neoplasm of unspecified part of unspecified bronchus or lung (3) Low TSH level Current Visit: Yes Status: Acute check total t3 and free t4 History of Present Illness - Reason for Consult Consult date: 08/25/16 hyponatremia - Chief Complaint Hyponatremia - History of Present Illness Mr. Locke is a 51 yo man with a history of metastatic lung cancer who was found to have extreme hyponatremia upon admission. Patient had decreased po intake. He denies new pains. He denies shortness of breath. His appetite is slightly improved. He denies chest pain. He is aware that he normally has low sodium. Past Med Surg Social Fam HX - Past Medical History Medical history: arthritis, cancer, COPD, other Psychiatric history: no psych history - Past Surgical History Surgical History: other - Social History Smoking Status: Current every day smoker Smokeless Tobacco Status: No Alcohol use: heavy Drug use: none - Family History Father Family Member Ethnicity: Non- Hx Family Cardiac Disorders: Yes Hx Family Respiratory Disorders: Yes (COPD) Hx Family Cancer: Yes (Lung cancer,) Hx Family GI Disorders: No Hx Family Endocrine Disorder: No Hx Family Neuromuscular Disorders: No Hx Family Neurologic Disorders: No Hx Family HEENT Disorders: No Hx Family Autoimmune Disorders: No Brother Adopted: No Living Status: Medications and Allergies Docusate [Colace] 100 mg PO BID #60 capsule 04/01/16 [Rx] Ondansetron [Zofran] 4 mg PO Q8HR #90 tablet 06/23/16 [Rx] Albuterol Sulfate [Albuterol Inhaler] 1 puff IH Q4H PRN #1 puff 06/26/16 [Rx] Furosemide [Lasix] 40 mg PO QAM 07/07/16 [History] Furosemide [Lasix] 20 mg PO HS 07/14/16 [History] Sennosides [Senna] 8.6 tab PO BID 07/14/16 [History] ClonazePAM [Klonopin] 0.5 mg PO BID PRN #14 tablet 07/15/16 [Rx] Morphine Sulfate [Morphine Sulfate ER] 30 mg PO BID #60 cpmp.24hr 07/28/16 [Rx] Zolpidem [Ambien] 10 mg PO HS #30 tablet 08/05/16 [Rx] Oxycodone HCl 15 mg PO Q4H PRN #90 tablet 08/06/16 [Rx] Prochlorperazine Maleate [Compazine] 10 mg PO Q8HR #90 tablet 08/06/16 [Rx] Omeprazole [PriLOSEC] 40 mg PO DAILY 08/16/16 [History] Dexamethasone [Decadron] 4 mg PO BID #90 tab 08/18/16 [Rx] Ipratropium/Albuterol Neb [Duoneb] 3 ml IH [id number] 30 Days 08/18/16 [Rx] Levofloxacin [Levaquin] 750 mg PO DAILY #10 tablet 08/18/16 [Rx] Potassium Chloride 20 meq PO DAILY #30 tab.er.prt 08/18/16 [Rx] Sodium Chloride 1 gm PO TID #90 tablet 08/18/16 [Rx] Budesonide/Formoterol 160/4.5 [Symbicort 160/4.5] 2 puff IH BID 08/24/16 [ History] Fluticasone/Vilanterol [Breo Ellipta 100-25 Mcg INH] 1 puff IH DAILY 08/24/16 [ History] Allergies No Known Allergies Allergy (Verified 07/14/16 08:10) Review of Systems All Systems: reviewed and no additional remarkable complaints except as stated ( as documented in the HPI.) Exam - Vital Signs Vital signs: Initial Vital Signs Temp Pulse Resp BP Pulse Ox 97.7 F 90 16 142/94 97 08/24/16 14:54 08/24/16 14:54 08/24/16 14:54 08/24/16 14:54 08/24/16 14:54 Vital Signs - Last 8 Hours Temp Pulse Resp BP Pulse Ox 08/25/16 15:32 17 99 08/25/16 15:28 86 08/25/16 15:08 97.7 F 102 16 106/69 96 08/25/16 11:44 97.6 F 103 16 100/63 08/25/16 11:37 102 08/25/16 11:24 19 98 08/25/16 09:09 73 Intake and Output 08/25/16 08/25/16 08/25/16 07:59 15:59 23:59 Intake Total 240 / 240 1600 / 1600 Output Total 975 / 975 1150 / 1150 Balance -735 / -735 450 / 450 Intake: IV Fluids 1000 / 1000 0.9 % Sodium Chloride 1, 1000 / 1000 000 ML @ 100 mls/hr IVC . Q10H [facility]INE Rx#:[id number] Oral 240 / 240 600 / 600 Output: Urine 975 / 975 1150 / 1150 Other: Meal Breakfast Lunch Percent of Meal Consumed 100% 90% Weight 65 kg Patient Weight 08/25/16 23:59 Weight 65 kg - General Appearance General appearance: well-developed, well-nourished EENT: ATNC Neck: supple Respiratory: clear Cardiology: no edema, regular rate, regular rhythm Gastrointestinal: normoactive bowel sounds, no tenderness Integumentary: warm and dry Neurologic: alert and oriented x3 Musculoskeletal: no cyanosis Psychiatric: mood/affect appropriate Results - Lab Results 08/25/16 03:13 08/25/16 11:21 Most recent lab results Calcium 8.9 mg/dL (8.6-10.8) 08/25/16 03:13 Magnesium 1.7 mg/dL (1.6-2.6) 08/25/16 03:13 Urine Sodium 36.0 mEq/L 08/24/16 01:12 Consult Discharge Plan - Plan Referrals: Juma French DO [Primary Care Provider] - (SENT EMAIL TO [facility] TO GET AN FOLLOW UP APPOINTMENT ON 08-25-16 @ [id number])
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
[2016-08-25] MEDS ORDERED: Furosemide 20 MG TABLET PO SCH (21:00)
[2016-08-26] MEDS: Ipratropium/Albuterol Neb 3 ML IH SCH ×7 (00:22→23:37)
[2016-08-26] MEDS: *HR* OxyCODONE Immed Rel 15 MG TABLET PO PRN ×3 (03:59→15:16)
[2016-08-26 04:03] LABS: Basophils % 0.1 %; Hematocrit 33.4 % (37.5-50.1); Hemoglobin 12.1 g/dL (12.9-16.9); Immature Granulocytes % 0.7 % (0-4); Lymphocytes # 0.4 K/mcL (0.6-4.6); Lymphocytes % 4.4 %; Mean Corpuscular HGB Conc 36.2 g/dL (31.6-35.5); Mean Corpuscular Volume 85.6 fL (83.0-100.0); Mean Platelet Volume 7.9 fL (9.4-12.4); Monocytes # 0.5 K/mcL (0.0-1.3); Monocytes % 5.6 %; Neutrophils # 7.2 K/mcL (1.6-8.9); Platelet Count 192 K/mcL (140-400); Red Cell Distribution Width 13.2 % (11.5-14.5); Segmented Neutrophils % 89.2 %
[2016-08-26 04:11] LABS: BUN/Creatinine Ratio 12 (6-26); Blood Urea Nitrogen 6 mg/dL (8-26); Calcium 8.9 mg/dL (8.6-10.8); Carbon Dioxide 20 mEq/L (19-29); Chloride 87 mEq/L (98-109); Glucose 102 mg/dL (70-99); Osmolality,Calculated 242 (280-300); Potassium 4.1 mEq/L (3.5-4.5); eGFR For African Americans > 60 (> 60); eGFR For Non-African Americans > 60 (> 60)
[2016-08-26 04:13] LABS: Sodium 117 mEq/L (136-145)
[2016-08-26] MEDS ORDERED: 0.9 % Sodium Chloride 1,000 ML IVC SCH ×3 (04:30→21:19)
[2016-08-26 04:33] LABS: Triiodothyronine (T3) Total 0.84 ng/mL (0.58-1.59)
[2016-08-26] MEDS: *HR* Enoxaparin 40 MG/0.4 ML SYRINGE SQ SCH (05:35)
[2016-08-26] MEDS: clonazePAM 0.5 MG TABLET PO PRN ×2 (07:31→18:35)
[2016-08-26] MEDS: Furosemide 20 MG TABLET PO SCH (07:31)
[2016-08-26] MEDS: levoFLOXacin 750 MG TABLET PO SCH (07:31)
[2016-08-26] MEDS: *HR* Morphine Sulfate SR (12 HR) 30 MG TABLET.ER PO SCH ×2 (07:31→20:02)
[2016-08-26] MEDS: Sennosides 8.6 MG TABLET PO SCH ×2 (07:31→20:01)
[2016-08-26] MEDS: (Breo Ellipta 100-25 Mcg Inh) IH SCH (07:32)
[2016-08-26] MEDS: Budesonide/Formoterol 160/4.5 MDI IH SCH ×2 (08:03→19:47)
--- NOTE | 2016-08-26 10:10 | Nephrology Progress Note ---
Date of Encounter: 08/26/16 Time of Encounter: 10:08 - Assessment and Plan (1) Hyponatremia Current Visit: Yes Status: Acute Patient has hyponatremia likely from poor intake and possibly ongoing fluid ingestion. His baseline sodium level is in the mid 120s. Goal correction for the 24 hours is 123. Recommendations: -1L 0.9%NS at 100cc/hr -Q4hr BMPs -consider lasix based on response (2) Metastatic lung cancer (metastasis from lung to other site) Current Visit: Yes Status: Chronic Qualifiers: Laterality: unspecified laterality Qualified Code(s): C34.90 - Malignant neoplasm of unspecified part of unspecified bronchus or lung (3) Low TSH level Current Visit: Yes Status: Acute T3, T4 WNL Subjective Interval history: Patient reports feeling increasingly SOB overnight. He states he has had difficulty with his memory. He also reports dizziness that is brief and occurs when he goes from a standing to a seated position. He denies dysuria, hematuria. He has been urinating without difficulty. He states that his baseline sodium is in the 120's. Objective - Vital Signs Vital signs: Vital Signs Temp Pulse Resp BP Pulse Ox 08/26/16 08:03 18 98 08/26/16 07:30 98.0 F 87 18 130/97 98 08/26/16 07:17 98.0 F 77 18 130/97 98 08/26/16 05:33 97.8 F 18 120/94 98 08/26/16 04:50 24 97 08/26/16 00:22 20 99 08/25/16 23:44 90 08/25/16 23:41 98 F 97 17 123/90 97 08/25/16 20:19 84 08/25/16 20:13 20 99 08/25/16 20:06 97.8 F 90 18 120/85 100 08/25/16 15:32 17 99 08/25/16 15:28 86 08/25/16 15:08 97.7 F 102 16 106/69 96 08/25/16 11:44 97.6 F 103 16 100/63 08/25/16 11:37 102 08/25/16 11:24 19 98 Intake and Output 08/25/16 08/26/16 08/26/16 23:59 07:59 15:59 Intake Total 1817 / 1817 240 / 240 240 / 240 Output Total 750 / 750 950 / 950 Balance 1067 / 1067 -710 / -710 240 / 240 Intake: IV Fluids 800 / 800 Dextrose 5% 1,000 ML @ 800 / 800 100 mls/hr IVC .Q10H [facility] Rx#:[id number] Oral 917 / 917 240 / 240 240 / 240 Other 100 / 100 Output: Urine 750 / 750 950 / 950 Other: Meal Dinner Breakfast Percent of Meal Consumed 95% 100% Stool Size Large Stool Consistency soft Stool Color Brown # Voids 1 2 # Bowel Movements 1 - General Appearance General appearance: Present: well-developed, well-nourished EENT: Present: ATNC, mucous membranes dry Neck: Present: no JVD, no thyromegaly, supple Respiratory: Present: wheezing Cardiology: Present: no murmurs, no rub, no gallops, no edema, regular rate, regular rhythm, normal S1, normal S2 Gastrointestinal: Present: no tenderness, no guarding, no organomegaly Integumentary: Present: no rash, warm and dry Neurologic: Present: no focal deficit, alert and oriented x3 Musculoskeletal: Present: no deformities, no erythema, no cyanosis, no clubbing Psychiatric: Present: mood/affect appropriate, cooperative - Lab 08/26/16 04:00 08/26/16 07:56 Most recent lab results Calcium 8.9 mg/dL (8.6-10.8) 08/26/16 03:52 Magnesium 1.7 mg/dL (1.6-2.6) 08/25/16 03:13 Urine Sodium 36.0 mEq/L 08/24/16 01:12 Consult Discharge Plan - Plan Referrals: Loren Baca DO [Resident] - 08/28/16 3:45 pm Juma French DO [Primary Care Provider] - (SENT EMAIL TO [facility] TO GET AN FOLLOW UP APPOINTMENT ON 08-25-16 @ 2169)
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
--- NOTE | 2016-08-26 11:16 | Palliative Progress Note ---
Date of Encounter: 08/26/16 Time of Encounter: 11:13 - Assessment and plan (1) Cancer associated pain Current Visit: Yes Status: Chronic Assessment and plan: Mr. Locke has used frequent doses of oxycodone for breakthrough pain. Will increase the MS Contin to 45mg BID and continue to monitor. Oxycodone 15mg PRN to remain. Monitor use and adjust accordingly. (2) Therapeutic opioid induced constipation Current Visit: Yes Status: Chronic Assessment and plan: Last BM was yesterday. (3) Metastatic lung cancer (metastasis from lung to other site) Current Visit: Yes Status: Chronic Assessment and plan: Oncology following. Qualifiers: Laterality: unspecified laterality Qualified Code(s): C34.90 - Malignant neoplasm of unspecified part of unspecified bronchus or lung (4) Cachexia Current Visit: No Status: Chronic Assessment and plan: Ensure Plus as a supplement. (5) Goals of care, counseling/discussion Current Visit: Yes Status: Acute Assessment and plan: Discussed goals of care with Mr. Locke including code status and discharge planning (home health vs. hospice). He as able to recall some information from prior conversation. Mr. Locke states he has continued to push forward with treatment for his mother and family. He is willing to discuss additional options when his mother arrives. - Time Spent With Patient Total time spent is greater than 50% in coordination of care (as documented) at patient's floor/unit and/or counseling patient: - Subjective Interval history: Mr. Locke is sitting up in bed. Reports continued left sided chronic chest pain rated 7/10. He has used 5 doses of oxycodone for breakthrough pain in addition to his MS CONTIN 30mg BID. - Constitutional Vitals: Abnormal lab results RBC 3.90 M/mcL (4.19-5.50) L 08/26/16 04:00 Hgb 12.1 g/dL (12.9-16.9) L 08/26/16 04:00 Hct 33.4 % (37.5-50.1) L 08/26/16 04:00 MCHC 36.2 g/dL (31.6-35.5) H 08/26/16 04:00 MPV 7.9 fL (9.4-12.4) L 08/26/16 04:00 Lymphocytes # 0.4 K/mcL (0.6-4.6) L 08/26/16 04:00 Sodium 116 mEq/L (136-145) L* 08/26/16 07:56 Chloride 87 mEq/L (98-109) L 08/26/16 03:52 BUN 6 mg/dL (8-26) L 08/26/16 03:52 Creatinine 0.52 mg/dL (0.72-1.25) L 08/26/16 03:52 Glucose 102 mg/dL (70-99) H 08/26/16 03:52 Serum Osmolality 236 mOsm/kg (280-300) L 08/24/16 16:53 Calculated Osmolality 242 (280-300) L 08/26/16 03:52 TSH 0.282 mcIU/mL (0.350-4.840) L 08/24/16 15:55 Urine Osmolality 162 mOsm/kg (300-1090) L 08/24/16 17:09 General appearance: Present: cooperative, no acute distress - ENT ENT exam: Present: mucous membranes moist - Respiratory Respiratory exam: Present: accessory muscle use, decreased breath sounds, prolonged expiratory phase - Cardiovascular Cardiovascular exam: Present: RRR - GI/Abdominal GI/Abdominal exam: Present: normal bowel sounds, soft. Absent: tenderness - Extremities Exam Extremities exam: Present: normal inspection - Neurological Exam Neurological exam: Present: alert, oriented X3, no focal deficits - Psychiatric Additional comments: tearful, flat affect - Skin Skin exam: Present: dry, warm Palliative Quality Palliative Quality: Screen for Code Status: Yes, Screen for Goals of Care: Yes, Screen for Pain: Yes, If Pain Regimen Started, Initiate Bowel Regimen: Yes, Screen for Nausea/Vomitting: Yes - Labs CBC & Chem 7: 08/26/16 04:00 08/26/16 15:40 Labs: Laboratory Results - last 24 hr 08/25/16 08/25/16 08/25/16 11:21 19:05 20:13 WBC RBC Hgb Hct MCV MCH MCHC RDW Plt Count MPV Immature Gran % Seg Neutrophils % Lymphocytes % Monocytes % Eosinophils % Basophils % Neutrophils # Lymphocytes # Monocytes # Eosinophils # Basophils # Sodium 123 L 118 L* 117 L* Potassium Chloride Carbon Dioxide BUN Creatinine Est GFR ( Amer) Est GFR (Non-Af Amer) BUN/Creatinine Ratio Glucose Calculated Osmolality Calcium Free T4 Total T3 08/26/16 08/26/16 08/26/16 03:52 03:52 04:00 WBC 8.1 RBC 3.90 L Hgb 12.1 L Hct 33.4 L MCV 85.6 MCH 31.0 MCHC 36.2 H RDW 13.2 Plt Count 192 MPV 7.9 L Immature Gran % 0.7 Seg Neutrophils % 89.2 Lymphocytes % 4.4 Monocytes % 5.6 Eosinophils % 0.0 Basophils % 0.1 Neutrophils # 7.2 Lymphocytes # 0.4 L Monocytes # 0.5 Eosinophils # 0.0 Basophils # 0.0 Sodium 117 L* Potassium 4.1 Chloride 87 L Carbon Dioxide 20 BUN 6 L Creatinine 0.52 L Est GFR ( Amer) > 60 Est GFR (Non-Af Amer) > 60 BUN/Creatinine Ratio 12 Glucose 102 H Calculated Osmolality 242 L Calcium 8.9 Free T4 1.19 Total T3 0.84 08/26/16 07:56 WBC RBC Hgb Hct MCV MCH MCHC RDW Plt Count MPV Immature Gran % Seg Neutrophils % Lymphocytes % Monocytes % Eosinophils % Basophils % Neutrophils # Lymphocytes # Monocytes # Eosinophils # Basophils # Sodium 116 L* Potassium Chloride Carbon Dioxide BUN Creatinine Est GFR ( Amer) Est GFR (Non-Af Amer) BUN/Creatinine Ratio Glucose Calculated Osmolality Calcium Free T4 Total T3 Consult Discharge Plan - Plan Referrals: Loren Baca DO [Resident] - 08/28/16 3:45 pm Juma French DO [Primary Care Provider] - (SENT [facility]IL TO [facility] TO GET AN FOLLOW UP APPOINTMENT ON 08-25-16 @ [id number])
[2016-08-26] MEDS: *HR* Morphine Sulfate SR (12 HR) 15 MG TABLET.ER PO SCH ×2 (12:21→20:00)
[2016-08-26 13:09] LABS: BUN/Creatinine Ratio 12 (6-26); Blood Urea Nitrogen 7 mg/dL (8-26); Calcium 8.8 mg/dL (8.6-10.8); Carbon Dioxide 22 mEq/L (19-29); Chloride 84 mEq/L (98-109); Glucose 117 mg/dL (70-99); Osmolality,Calculated 239 (280-300); eGFR For African Americans > 60 (> 60); eGFR For Non-African Americans > 60 (> 60)
[2016-08-26 13:27] LABS: Sodium 115 mEq/L (136-145)
[2016-08-26 16:03] LABS: BUN/Creatinine Ratio 13 (6-26); Blood Urea Nitrogen 7 mg/dL (8-26); Calcium 8.5 mg/dL (8.6-10.8); Carbon Dioxide 22 mEq/L (19-29); Chloride 84 mEq/L (98-109); Glucose 97 mg/dL (70-99); Osmolality,Calculated 236 (280-300); Potassium 4.2 mEq/L (3.5-4.5); eGFR For African Americans > 60 (> 60); eGFR For Non-African Americans > 60 (> 60)
[2016-08-26 16:07] LABS: Sodium 114 mEq/L (136-145)
[2016-08-26] MEDS ORDERED: Furosemide 40 MG/4 ML VIAL IVP ONE (16:17)
--- NOTE | 2016-08-26 17:44 | Electrocardiograph Report ---
[place] [id number] Test Date: 2016-08-24 Pat Name: Ashok Locke Department: 104 Room: 2N09 Gender: M Psychological Examiner: : 1965 Requested By: Pradeep Mcdonald Order Number: [id number] Reading MD: Oliva Cheatham Measurements Intervals [place] Rate: 84 P: 64 GA: 179 QRS: 4 QRSD: 99 T: 40 QT: 362 QTc: 403 Interpretive Statements SINUS RHYTHM POSSIBLE LEFT ATRIAL ENLARGEMENT Electronically Signed On 08-26-2016 17:42:14 EST by Oliva Cheatham
[2016-08-26 20:50] LABS: BUN/Creatinine Ratio 14 (6-26); Blood Urea Nitrogen 8 mg/dL (8-26); Calcium 8.7 mg/dL (8.6-10.8); Carbon Dioxide 24 mEq/L (19-29); Chloride 83 mEq/L (98-109); Glucose 91 mg/dL (70-99); Osmolality,Calculated 242 (280-300); Potassium 3.6 mEq/L (3.5-4.5); eGFR For African Americans > 60 (> 60); eGFR For Non-African Americans > 60 (> 60)
[2016-08-26 20:53] LABS: Sodium 117 mEq/L (136-145)
[2016-08-27 00:51] LABS: BUN/Creatinine Ratio 11 (6-26); Blood Urea Nitrogen 7 mg/dL (8-26); Calcium 8.8 mg/dL (8.6-10.8); Carbon Dioxide 23 mEq/L (19-29); Chloride 85 mEq/L (98-109); Glucose 127 mg/dL (70-99); Osmolality,Calculated 246 (280-300); Potassium 3.8 mEq/L (3.5-4.5); eGFR For African Americans > 60 (> 60); eGFR For Non-African Americans > 60 (> 60)
[2016-08-27 00:53] LABS: Sodium 118 mEq/L (136-145)
[2016-08-27] MEDS: Ipratropium/Albuterol Neb 3 ML IH SCH ×4 (04:11→15:45)
[2016-08-27 05:12] LABS: BUN/Creatinine Ratio 13 (6-26); Blood Urea Nitrogen 7 mg/dL (8-26); Calcium 8.9 mg/dL (8.6-10.8); Carbon Dioxide 23 mEq/L (19-29); Chloride 86 mEq/L (98-109); Glucose 106 mg/dL (70-99); Osmolality,Calculated 246 (280-300); eGFR For African Americans > 60 (> 60); eGFR For Non-African Americans > 60 (> 60)
[2016-08-27 05:14] LABS: Sodium 119 mEq/L (136-145)
[2016-08-27] MEDS: *HR* Enoxaparin 40 MG/0.4 ML SYRINGE SQ SCH (05:59)
[2016-08-27] MEDS: clonazePAM 0.5 MG TABLET PO PRN (08:08)
[2016-08-27] MEDS: Sennosides 8.6 MG TABLET PO SCH (08:08)
[2016-08-27] MEDS: *HR* Morphine Sulfate SR (12 HR) 30 MG TABLET.ER PO SCH (08:09)
[2016-08-27] MEDS: Furosemide 20 MG TABLET PO SCH (08:09)
[2016-08-27] MEDS: *HR* Morphine Sulfate SR (12 HR) 15 MG TABLET.ER PO SCH (08:09)
[2016-08-27] MEDS: levoFLOXacin 750 MG TABLET PO SCH (08:09)
[2016-08-27] MEDS: (Breo Ellipta 100-25 Mcg Inh) IH SCH (08:10)
[2016-08-27 09:21] LABS: BUN/Creatinine Ratio 13 (6-26); Blood Urea Nitrogen 7 mg/dL (8-26); Calcium 9.1 mg/dL (8.6-10.8); Carbon Dioxide 23 mEq/L (19-29); Chloride 86 mEq/L (98-109); Glucose 108 mg/dL (70-99); Osmolality,Calculated 249 (280-300); Potassium 3.5 mEq/L (3.5-4.5); eGFR For African Americans > 60 (> 60); eGFR For Non-African Americans > 60 (> 60)
[2016-08-27 09:23] LABS: Sodium 120 mEq/L (136-145)
--- NOTE | 2016-08-27 10:16 | Nephrology Progress Note ---
Date of Encounter: 08/27/16 Time of Encounter: 10:13 - Assessment and Plan (1) Hyponatremia Current Visit: Yes Status: Acute Patient has hyponatremia likely from poor intake and possibly ongoing fluid ingestion. His baseline sodium level is in the mid 120s. Goal correction for today is to sustain at 120 or greater. Sodium dropped to 114 yesterday afternoon while on IVF. Rate decreased to 25cc/ hr overnight and patient placed on 1.5L fluid restriction. Sodium up to 119 this morning. The patient is very unhappy about being placed on a restriction. He states he understands that the amount of water he was drinking before takes too much sodium out of his body, but he states that he has to have water to drink. Palliative was present for the exam and other options for the patient were discussed such as mints, mouth swabs, apple sauce, etc to help wet his mouth. He declined all of these stating that he just wants water. He does admit that he drinks 2-3 beers a night at home. The patient states that he wants to go home. I discussed that we need to monitor his sodium to make sure he maintains it with the fluid restriction. He has agreed to stay and see at least what his sodium is at noon. He is very unhappy with continuing the fluid restriction. Recommendations: - Stop IVF -Q4hr BMPs - Continue 1.5L fluid restriction -Continue to monitor strict I&Os -Will need sodium recheck on tuesday 08/29 as outpatient. May consider increase to 2L fluid restriction at that time. -Advise against drinking beer as this will drive more sodium out (2) Metastatic lung cancer (metastasis from lung to other site) Current Visit: Yes Status: Chronic Palliative is on board and having discussion with the patient and his mother about his pain and care goals. Qualifiers: Laterality: unspecified laterality Qualified Code(s): C34.90 - Malignant neoplasm of unspecified part of unspecified bronchus or lung (3) Low TSH level Current Visit: Yes Status: Acute T3, T4 WNL Subjective Principal diagnosis: hyponatremia Interval history: Patient reports feeling SOB, but is at his baseline. The patient states that he is very upset with the fluid restriction, stating that he should "just walk out of here." He is upset with not having enough water to wash his food down with, and that he did not eat supper last night because he didn't have enough water left to drink. He states that does not understand why we would restrict his fluid when his sodium is 119. He also admits to drinking 2-3 beers nightly prior to admission. Objective - Vital Signs Vital signs: Vital Signs Temp Pulse Resp BP Pulse Ox 08/27/16 08:00 97.9 F 67 16 155/94 99 08/27/16 07:00 97.9 F 67 16 155/94 99 08/27/16 05:23 75 17 100 08/27/16 05:00 97.8 F 77 17 131/89 100 08/27/16 04:12 20 93 L 08/27/16 01:38 85 24 97 08/27/16 00:21 98.2 F 96 24 160/93 97 08/26/16 23:39 16 99 08/26/16 20:23 85 08/26/16 19:49 18 96 08/26/16 19:41 97.8 F 107 21 135/96 97 08/26/16 16:36 16 97 08/26/16 15:25 97.6 F 80 16 147/97 99 08/26/16 15:14 97.6 F 80 16 147/97 99 08/26/16 13:15 98.2 F 96 18 117/72 98 08/26/16 12:25 98.2 F 96 18 117/72 98 08/26/16 11:41 18 98 08/26/16 11:28 98.2 F 98 18 117/72 98 Intake and Output 08/26/16 08/27/16 08/27/16 23:59 07:59 15:59 Intake Total 100 / 100 400 / 400 Output Total 350 / 350 825 / 825 Balance -250 / -250 -425 / -425 Intake: Oral 100 / 100 400 / 400 Output: Urine 350 / 350 825 / 825 Other: Meal Dinner Breakfast Percent of Meal Consumed 50% 100% Stool Size Moderate Stool Consistency soft Stool Color Brown Weight 66.2 kg Patient Weight 08/27/16 23:59 Weight 66.2 kg - General Appearance General appearance: Present: well-developed, well-nourished, frail. Absent: appears started age EENT: Present: ATNC, mucous membranes dry Neck: Present: no JVD, supple Respiratory: Present: wheezing, course breath sounds Cardiology: Present: no murmurs, no rub, no gallops, no edema, regular rate, regular rhythm, normal S1, normal S2 Gastrointestinal: Present: normoactive bowel sounds, no tenderness, no guarding Integumentary: Present: no rash, warm and dry Neurologic: Present: no focal deficit, alert and oriented x3 Musculoskeletal: Present: no erythema, no cyanosis Psychiatric: Present: agitated - Lab 08/26/16 04:00 08/27/16 08:45 Most recent lab results Calcium 9.1 mg/dL (8.6-10.8) 08/27/16 08:45 Magnesium 1.7 mg/dL (1.6-2.6) 08/25/16 03:13 Urine Sodium 36.0 mEq/L 08/24/16 01:12 Consult Discharge Plan - Plan Referrals: Loren Baca DO [Resident] - 08/28/16 3:45 pm Juma French DO [Primary Care Provider] - (SENT [facility]IL TO [facility] TO GET AN FOLLOW UP APPOINTMENT ON 08-25-16 @ 3408)
[2016-08-27] MEDS: Budesonide/Formoterol 160/4.5 MDI IH SCH (11:14)
[2016-08-27] MEDS: *HR* OxyCODONE Immed Rel 15 MG TABLET PO PRN (11:56)
[2016-08-27 12:21] LABS: BUN/Creatinine Ratio 13 (6-26); Blood Urea Nitrogen 8 mg/dL (8-26); Calcium 8.2 mg/dL (8.6-10.8); Carbon Dioxide 23 mEq/L (19-29); Chloride 88 mEq/L (98-109); Glucose 131 mg/dL (70-99); Osmolality,Calculated 252 (280-300); Sodium 121 mEq/L (136-145); eGFR For African Americans > 60 (> 60); eGFR For Non-African Americans > 60 (> 60)
--- NOTE | 2016-08-27 13:01 | Internal Med Progress Note ---
Date of Encounter: 08/27/16 Time of Encounter: 10:45 - Assessment and plan (1) Tachycardia Current Visit: Yes Status: Acute Assessment and plan: At time of review HR elevated to 120 May have been due to agitation and anxiety HR now downtrending without any treatment TSH low on admission but normal T3 and T4 EKG sinus on admission Will observe and discharge a.m if improvement is sustained and no recurrence (2) Cancer associated pain Current Visit: Yes Status: Chronic Assessment and plan: Chronic, controlled (3) Generalized anxiety disorder Current Visit: Yes Status: Acute Assessment and plan: Continue home medication (4) Hyponatremia Current Visit: Yes Status: Acute Assessment and plan: Patient has a chronic hyponatremia. However, his sodium level is extremely low in the ER on admission, which was 111. Na has been corrected with help of renal team with most recent now 121 From renal standpoint, discussion with him , patient may be discharged with follow up chemistry on Tuesday 08/29 and follow up out-patient Will continue current management Anticipate d/c a.m (5) Therapeutic opioid induced constipation Current Visit: Yes Status: Chronic (6) Tobacco abuse disorder Current Visit: Yes Status: Chronic Assessment and plan: Smoking cessation education. (7) Metastatic lung cancer (metastasis from lung to other site) Current Visit: Yes Status: Chronic Assessment and plan: Oncology and palliative care input appreciated Qualifiers: Laterality: unspecified laterality Qualified Code(s): C34.90 - Malignant neoplasm of unspecified part of unspecified bronchus or lung (8) COPD (chronic obstructive pulmonary disease) Current Visit: No Status: Chronic Assessment and plan: No signs of Exacerbation. Patient was just discharged from hospital for COPD exacerbation on 08/18. 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 Also PMH of , COPD, Active smoker on home O2 Admitting diagnosis of hyponatremia, mild facial fernández from smoking with oxygen , acute on chronic Na trend overnight between 117-121 most recent Chem Nephrology input noted Palliative care input noted, appreciated Patient seen at bedside with mum, agitated that he cannot drink as he pleases Of note, VS showed tachycardia since last night, at time of review, HR trended between 110-120 during my review Patient denies chest pain, palpitations, but reports being "winded" No fever or chills, he denies any other symptoms - Constitutional Vitals: Temp Pulse Resp BP Pulse Ox 98.5 F 102 17 111/85 98 08/27/16 12:05 08/27/16 12:05 08/27/16 12:05 08/27/16 12:05 08/27/16 12:05 General appearance: Present: A&O X 3, no acute distress, answers questions appropriately - Head Head exam: Present: atraumatic, normocephalic - Eye Eye exam: Present: PERRL, conjuntiva pink, sclera anicteric Pupils: Present: PERRL - Neck Neck exam general surgery: Present: supple, trachea midline. Absent: lymphadenopathy - Respiratory Respiratory exam: Present: decreased breath sounds. Absent: stridor, wheezes, tachypnea - Cardiovascular Cardiovascular exam: Present: +S1, +S2, systolic murmur, tachycardia - GI/Abdominal GI/Abdominal exam: Present: normal bowel sounds, soft, no peritoneal signs. Absent: distended, tenderness - Extremities Exam Extremities exam: Present: warm, radial pulses palpable and symetrical. Absent : calf tenderness, cyanotic, pedal edema - Neurological Exam Neurological exam: Present: CN II-XII intact, oriented X3, no focal deficits. Absent: pronater drift, facial droop, speech deficit - Skin Skin exam: Present: dry, intact Internal Medicine: Result - Labs CBC & Chem 7: 08/26/16 04:00 08/27/16 12:00 Labs: BMP 08/26/16 08/26/16 08/26/16 12:30 15:40 20:18 Sodium 115 L* 114 L* 117 L* Potassium 4.0 4.2 3.6 Chloride 84 L 84 L 83 L Carbon Dioxide 22 22 24 BUN 7 L 7 L 8 Creatinine 0.58 L 0.56 L 0.57 L Glucose 117 H 97 91 Calcium 8.8 8.5 L 8.7 08/27/16 08/27/16 08/27/16 00:30 04:35 08:45 Sodium 118 L* 119 L* 120 L* Potassium 3.8 4.0 3.5 Chloride 85 L 86 L 86 L Carbon Dioxide 23 23 23 BUN 7 L 7 L 7 L Creatinine 0.61 L 0.56 L 0.56 L Glucose 127 H 106 H 108 H Calcium 8.8 8.9 9.1 08/27/16 12:00 Sodium 121 L Potassium 4.0 Chloride 88 L Carbon Dioxide 23 BUN 8 Creatinine 0.60 L Glucose 131 H Calcium 8.2 L Consult Discharge Plan - Plan Referrals: Loren Baca DO [Resident] - 08/28/16 3:45 pm Juma French DO [Primary Care Provider] - (SENT [facility]IL TO [facility] TO GET AN FOLLOW UP APPOINTMENT ON 08-25-16 @ [id number])
--- NOTE | 2016-08-27 14:15 | Palliative Progress Note ---
Date of Encounter: 08/27/16 Time of Encounter: 10:00 - Assessment and plan (1) Cancer associated pain Current Visit: Yes Status: Chronic Assessment and plan: Mr. Locke has used frequent doses of oxycodone for breakthrough pain. MS Contin increased to 45mg BID yesterday, continue to monitor. Oxycodone 15mg PRN to remain. Monitor use and adjust accordingly. (2) Therapeutic opioid induced constipation Current Visit: Yes Status: Chronic Assessment and plan: Last BM was yesterday. (3) Metastatic lung cancer (metastasis from lung to other site) Current Visit: Yes Status: Chronic Assessment and plan: Oncology following. Qualifiers: Laterality: unspecified laterality Qualified Code(s): C34.90 - Malignant neoplasm of unspecified part of unspecified bronchus or lung (4) Cachexia Current Visit: No Status: Chronic Assessment and plan: Ensure Plus as a supplement. (5) Goals of care, counseling/discussion Current Visit: Yes Status: Acute Assessment and plan: Discussed goals of care with Mr. Locke and his mother. He is very unhappy regarding his fluid restriction. Offered things such as mints, gum, applesauce to soothe the mouth and keep it cool. Mr. Locke declined. His statements are conflicting regarding being permitted to have things that give him pleasure (such as food, water, beer, cigarettes) and pursuing treatment for his cancer ( smoking cessation, healthy foods, fluid restriction). I encouraged him to think about what was important in his life and what does he value. We briefly reviewed hospice services (covered yesterday). The palliative care team will continue to follow. - Time Spent With Patient Total time spent is greater than 50% in coordination of care (as documented) at patient's floor/unit and/or counseling patient: - Subjective Interval history: Mr. Lokce is sitting up in bed. He appears agitated and unhappy with the fluid restriction he was placed on. He did not eat his evening meal last night because he didn't have any water to drink with it. His mother, Zelda, is at bedside. Mr. Locke reports stable chronic chest pain related to his cancer. He reports his breathing is "ok". - Constitutional Vitals: Abnormal lab results RBC 3.90 M/mcL (4.19-5.50) L 08/26/16 04:00 Hgb 12.1 g/dL (12.9-16.9) L 08/26/16 04:00 Hct 33.4 % (37.5-50.1) L 08/26/16 04:00 MCHC 36.2 g/dL (31.6-35.5) H 08/26/16 04:00 MPV 7.9 fL (9.4-12.4) L 08/26/16 04:00 Lymphocytes # 0.4 K/mcL (0.6-4.6) L 08/26/16 04:00 Sodium 121 mEq/L (136-145) L 08/27/16 12:00 Chloride 88 mEq/L (98-109) L 08/27/16 12:00 Creatinine 0.60 mg/dL (0.72-1.25) L 08/27/16 12:00 Glucose 131 mg/dL (70-99) H 08/27/16 12:00 Serum Osmolality 236 mOsm/kg (280-300) L 08/24/16 16:53 Calculated Osmolality 252 (280-300) L 08/27/16 12:00 Calcium 8.2 mg/dL (8.6-10.8) L 08/27/16 12:00 TSH 0.282 mcIU/mL (0.350-4.840) L 08/24/16 15:55 Urine Osmolality 162 mOsm/kg (300-1090) L 08/24/16 17:09 General appearance: Present: cooperative, no acute distress - ENT ENT exam: Present: mucous membranes moist - Respiratory Respiratory exam: Present: decreased breath sounds, prolonged expiratory phase. Absent: respiratory distress - Cardiovascular Cardiovascular exam: Present: tachycardia - GI/Abdominal GI/Abdominal exam: Present: normal bowel sounds, soft. Absent: tenderness - Extremities Exam Extremities exam: Present: normal inspection - Neurological Exam Neurological exam: Present: alert, oriented X3, no focal deficits, strengths equal and symetr throughout - Psychiatric Psychiatric exam: Present: agitated Palliative Quality Palliative Quality: Screen for Code Status: Yes, Screen for Goals of Care: Yes, Screen for Pain: Yes, If Pain Regimen Started, Initiate Bowel Regimen: Yes, Screen for Nausea/Vomitting: Yes - Labs CBC & Chem 7: 08/26/16 04:00 08/27/16 12:00 Labs: Laboratory Results - last 24 hr 08/26/16 08/26/16 08/27/16 15:40 20:18 00:30 Sodium 114 L* 117 L* 118 L* Potassium 4.2 3.6 3.8 Chloride 84 L 83 L 85 L Carbon Dioxide 22 24 23 BUN 7 L 8 7 L Creatinine 0.56 L 0.57 L 0.61 L Est GFR ( Amer) > 60 > 60 > 60 Est GFR (Non-Af Amer) > 60 > 60 > 60 BUN/Creatinine Ratio 13 14 11 Glucose 97 91 127 H Calculated Osmolality 236 L 242 L 246 L Calcium 8.5 L 8.7 8.8 08/27/16 08/27/16 08/27/16 04:35 08:45 12:00 Sodium 119 L* 120 L* 121 L Potassium 4.0 3.5 4.0 Chloride 86 L 86 L 88 L Carbon Dioxide 23 23 23 BUN 7 L 7 L 8 Creatinine 0.56 L 0.56 L 0.60 L Est GFR ( Amer) > 60 > 60 > 60 Est GFR (Non-Af Amer) > 60 > 60 > 60 BUN/Creatinine Ratio 13 13 13 Glucose 106 H 108 H 131 H Calculated Osmolality 246 L 249 L 252 L Calcium 8.9 9.1 8.2 L Consult Discharge Plan - Plan Referrals: Loren Baca DO [Resident] - 08/28/16 3:45 pm Juma French DO [Primary Care Provider] - (SENT EMAIL TO [facility] TO GET AN FOLLOW UP APPOINTMENT ON 08-25-16 @ [id number])
[2016-08-27 15:04] VITALS: BP 125/85
--- NOTE | 2016-08-27 17:08 | Discharge Summary ---
Date of Encounter: 08/27/16 Time of Encounter: 17:03 - Discharge Diagnosis (1) Tachycardia Priority: Primary Status: Resolved (2) Cancer associated pain Priority: Secondary Status: Chronic (3) Generalized anxiety disorder Priority: Secondary Status: Chronic (4) Hyponatremia Priority: Primary Status: Acute (5) Therapeutic opioid induced constipation Priority: Secondary Status: Chronic (6) Tobacco abuse disorder Priority: Secondary Status: Chronic (7) Metastatic lung cancer (metastasis from lung to other site) Priority: Secondary Status: Chronic Qualifiers: Laterality: unspecified laterality Qualified Code(s): C34.90 - Malignant neoplasm of unspecified part of unspecified bronchus or lung (8) COPD (chronic obstructive pulmonary disease) Priority: Secondary Status: Chronic Qualifiers: COPD type: unspecified COPD Qualified Code(s): J44.9 - Chronic obstructive pulmonary disease, unspecified - Discharge Medications Home Medications: Docusate [Colace] 100 mg PO BID #60 capsule 04/01/16 [Rx] Ondansetron [Zofran] 4 mg PO Q8HR #90 tablet 06/23/16 [Rx] Albuterol Sulfate [Albuterol Inhaler] 1 puff IH Q4H PRN #1 puff 06/26/16 [Rx] Furosemide [Lasix] 40 mg PO QAM 07/07/16 [History] Sennosides [Senna] 8.6 tab PO BID 07/14/16 [History] ClonazePAM [Klonopin] 0.5 mg PO BID PRN #14 tablet 07/15/16 [Rx] Morphine Sulfate [Morphine Sulfate ER] 30 mg PO BID #60 cpmp.24hr 07/28/16 [Rx] Zolpidem [Ambien] 10 mg PO HS #30 tablet 08/05/16 [Rx] Oxycodone HCl 15 mg PO Q4H PRN #90 tablet 08/06/16 [Rx] Prochlorperazine Maleate [Compazine] 10 mg PO Q8HR #90 tablet 08/06/16 [Rx] Omeprazole [PriLOSEC] 40 mg PO DAILY 08/16/16 [History] Dexamethasone [Decadron] 4 mg PO BID #90 tab 08/18/16 [Rx] Ipratropium/Albuterol Neb [Duoneb] 3 ml IH [id number] 30 Days 08/18/16 [Rx] Potassium Chloride 20 meq PO DAILY #30 tab.er.prt 08/18/16 [Rx] Budesonide/Formoterol 160/4.5 [Symbicort 160/4.5] 2 puff IH BID 08/24/16 [ History] Fluticasone/Vilanterol [Breo Ellipta 100-25 Mcg INH] 1 puff IH DAILY 08/24/16 [ History] Allergies/Adverse Reactions: Allergies No Known Allergies Allergy (Verified 07/14/16 08:10) Date of admission: 08/24/16 21:39 Primary care physician: Juma French DO Consults: 08/24/16 21:59 Consult to Nutrition [CONS] Routine Comment: Consulting Provider: NUTRITION Reason for Dietary Consult: Supplemental Nutrition Consult to Palliative Care [CONS] Routine Comment: Consulting Provider: Palliative [facility] [place] 08/25/16 11:58 Consult to Oncology Hematology [CONS] Routine Consulting Provider: Cammy Piña Reason for Consult: Lung cancer on chemo Call Completed: Yes Discharging clinician: Smith Lopez Anticipated date of discharge: 08/27/16 - Patient Status Disposition: Home, Self-Care Condition: Fair Functional capacity at discharge: uses cane/walker Overall status at discharge: patient is progressing back to baseline - Discharge Instructions Follow Up With: Loren Baca DO [Resident] - 08/28/16 3:45 pm Juma French DO [Primary Care Provider] - (SENT EMAIL TO [facility] TO GET AN FOLLOW UP APPOINTMENT ON 08-25-16 @ [id number]) - Diet and Activity Activity: resume usual activities as tolerated, wear oxygen at all times Diet: advance to your usual diet Interval History: See below Hospital course: Mr. 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 Also PMH of , COPD, Active smoker on home O2 Admitting diagnosis of hyponatremia, mild facial fernández from smoking with oxygen , acute on chronic Sodium correction was managed with renal team on board Na at this time 121, according to renal patient is at his baseline and stable for discharge home He continues to smoke Smoking cessation was discussed in-patient daily HR has improved and sustained Patient is supposed to be on salt pills, hold until repeat chem 09/02/16 and or follow up wit PCP and renal clinic Follow up with PCP and renal team - Time Spent with Patient Total time spent providing and/or coordinating discharge services: - Constitutional Vitals: Temp Pulse Resp BP Pulse Ox 97.8 F 82 18 125/85 97 08/27/16 16:20 08/27/16 16:20 08/27/16 16:20 08/27/16 16:20 08/27/16 16:20 General appearance: Present: A&O X 3, no acute distress, answers questions appropriately - Head Head exam: Present: atraumatic, normocephalic Additional comments: scab on right facial /cheek region - Eye Eye exam: Present: PERRL, conjuntiva pink, sclera anicteric Pupils: Present: PERRL - Neck Neck exam general surgery: Present: supple, trachea midline. Absent: lymphadenopathy - Respiratory Respiratory exam: Present: CTAB. Absent: accessory muscle use, rales, rhonchi, wheezes - Cardiovascular Cardiovascular exam: Present: RRR, +S1, +S2. Absent: diastolic murmur, gallop, rubs, systolic murmur - GI/Abdominal GI/Abdominal exam: Present: normal bowel sounds, soft, no peritoneal signs. Absent: distended, tenderness - Extremities Exam Extremities exam: Present: warm, radial pulses palpable and symetrical. Absent : calf tenderness, cyanotic, pedal edema - Neurological Exam Neurological exam: Present: CN II-XII intact, oriented X3, no focal deficits. Absent: pronater drift, facial droop, speech deficit - Skin Skin exam: Present: dry, intact
== END 2016-08-27 17:52 | disposition home or self-care (01) | DRG 425 ==
LOC: EMEROO 14:53 → 2NNU 14:53 → SUATTDRO 21:39
PROVIDERS: ADMIT Internal Medicine; ATTEND Internal Medicine

== ENCOUNTER 2016-09-01 16:23 | Inpatient (IN) ==
[2016-09-01] MEDS ORDERED: methylPREDNISolone 125 MG/2 ML VIAL IVP ONE (16:34)
[2016-09-01] MEDS ORDERED: Ipratropium/Albuterol Neb 3 ML IH ONE (16:34)
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
[2016-09-01] MEDS ORDERED: predniSONE 20 MG TABLET PO ONE (17:10)
[2016-09-01 17:48] LABS: Basophils % 0.4 %; Eosinophils % 0.6 %; Hematocrit 34.8 % (37.5-50.1); Immature Granulocytes % 3.1 % (0-4); Lymphocytes # 0.4 K/mcL (0.6-4.6); Lymphocytes % 7.4 %; Mean Corpuscular Hemoglobin 30.5 pg (28.0-33.3); Mean Corpuscular Volume 81.7 fL (83.0-100.0); Mean Platelet Volume 7.7 fL (9.4-12.4); Monocytes # 0.4 K/mcL (0.0-1.3); Monocytes % 7.4 %; Neutrophils # 4.4 K/mcL (1.6-8.9); Platelet Count 186 K/mcL (140-400); Red Blood Count 4.26 M/mcL (4.19-5.50); Red Cell Distribution Width 13.1 % (11.5-14.5); Segmented Neutrophils % 81.1 %
[2016-09-01 17:51] LABS: Mean Corpuscular HGB Conc 37.4 g/dL (31.6-35.5)
[2016-09-01 18:01] LABS: BUN/Creatinine Ratio 6 (6-26); Calcium 8.8 mg/dL (8.6-10.8); Carbon Dioxide 21 mEq/L (19-29); Chloride 76 mEq/L (98-109); Glucose 98 mg/dL (70-99); Osmolality,Calculated 225 (280-300); Potassium 3.5 mEq/L (3.5-4.5); eGFR For African Americans > 60 (> 60); eGFR For Non-African Americans > 60 (> 60)
[2016-09-01 18:02] LABS: Blood Urea Nitrogen 3 mg/dL (8-26)
[2016-09-01 18:03] LABS: Sodium 109 mEq/L (136-145)
[2016-09-01] MEDS ORDERED: 0.9 % Sodium Chloride 1,000 ML IVC SCH (18:30)
[2016-09-01] MEDS ORDERED: *HR* Morphine 2 MG/ML SYRINGE IVP PRN (20:44)
[2016-09-01] MEDS ORDERED: Acetaminophen 325 MG TABLET PO PRN (20:44)
[2016-09-01] MEDS ORDERED: Naloxone 0.4 MG/ML INJ IVP PRN (20:44)
[2016-09-01] MEDS ORDERED: Albuterol 2.5 MG/3 ML NEBULIZER IH PRN (20:59)
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
[2016-09-01] MEDS: Azithromycin 500 MG in D5% in Water 250 ML IVPB SCH (21:34)
[2016-09-01 21:41] LABS: BUN/Creatinine Ratio 8 (6-26); Calcium 8.3 mg/dL (8.6-10.8); Carbon Dioxide 20 mEq/L (19-29); Chloride 79 mEq/L (98-109); Glucose 109 mg/dL (70-99); Osmolality,Calculated 225 (280-300); Potassium 3.8 mEq/L (3.5-4.5); eGFR For African Americans > 60 (> 60); eGFR For Non-African Americans > 60 (> 60)
[2016-09-01 21:42] LABS: Blood Urea Nitrogen 4 mg/dL (8-26)
[2016-09-01] MEDS: Budesonide/Formoterol 160/4.5 MDI IH SCH (21:43)
[2016-09-01] MEDS: Ipratropium/Albuterol Neb 3 ML IH SCH (21:43)
[2016-09-01 21:45] LABS: Sodium 109 mEq/L (136-145)
[2016-09-01] MEDS: methylPREDNISolone 125 MG/2 ML VIAL IVP SCH (23:59)
[2016-09-02 00:32] LABS: BUN/Creatinine Ratio 8 (6-26); Calcium 8.2 mg/dL (8.6-10.8); Carbon Dioxide 22 mEq/L (19-29); Chloride 78 mEq/L (98-109); Glucose 113 mg/dL (70-99); Osmolality,Calculated 226 (280-300); Potassium 3.9 mEq/L (3.5-4.5); eGFR For African Americans > 60 (> 60); eGFR For Non-African Americans > 60 (> 60)
[2016-09-02 00:49] LABS: Blood Urea Nitrogen 4 mg/dL (8-26)
[2016-09-02 00:50] LABS: Sodium 109 mEq/L (136-145)
[2016-09-02] MEDS: Ipratropium/Albuterol Neb 3 ML IH SCH ×4 (04:17→21:22)
[2016-09-02 04:27] LABS: Alanine Aminotransferase 18 Units/L (0-55); Albumin 2.9 g/dL (3.5-5.0); Albumin/Globulin Ratio 0.9 (1.1-2.2); Alkaline Phosphatase 128 Units/L (38-126); Aspartate Amino Transferase 26 Units/L (5-34); BUN/Creatinine Ratio 7 (6-26); Bilirubin,Total 0.8 mg/dL (0.2-1.2); Calcium 8.7 mg/dL (8.6-10.8); Carbon Dioxide 21 mEq/L (19-29); Chloride 80 mEq/L (98-109); Globulin 3.2 g/dL (2.4-3.5); Glucose 118 mg/dL (70-99); Magnesium 1.6 mg/dL (1.6-2.6); Osmolality,Calculated 230 (280-300); Potassium 3.8 mEq/L (3.5-4.5); Total Protein 6.1 g/dL (6.0-8.3); eGFR For African Americans > 60 (> 60); eGFR For Non-African Americans > 60 (> 60)
[2016-09-02 04:32] LABS: Blood Urea Nitrogen 4 mg/dL (8-26)
[2016-09-02 04:37] LABS: Sodium 111 mEq/L (136-145)
[2016-09-02 05:42] LABS: Hemoglobin 11.9 g/dL (12.9-16.9)
[2016-09-02 05:44] LABS: Hematocrit 31.1 % (37.5-50.1); Mean Corpuscular Hemoglobin 31.1 pg (28.0-33.3); Mean Corpuscular Volume 81.2 fL (83.0-100.0); Mean Platelet Volume 8.1 fL (9.4-12.4); Platelet Count 164 K/mcL (140-400); Red Blood Count 3.83 M/mcL (4.19-5.50)
[2016-09-02 05:58] LABS: Mean Corpuscular HGB Conc 38.3 g/dL (31.6-35.5)
[2016-09-02] MEDS: methylPREDNISolone 125 MG/2 ML VIAL IVP SCH ×3 (06:07→16:50)
[2016-09-02] MEDS: *HR* Heparin 5,000 UNIT/ML VIAL SQ SCH ×2 (06:07→17:26)
[2016-09-02] MEDS: *HR* Morphine Sulfate SR (12 HR) 30 MG TABLET.ER PO SCH ×2 (07:29→20:26)
[2016-09-02] MEDS: Sennosides 8.6 MG TABLET PO SCH ×2 (07:29→20:28)
[2016-09-02] MEDS: Megestrol Acetate 400 MG/10 ML UDC PO SCH (07:29)
[2016-09-02] MEDS: Nicotine 21 MG PATCH.TD24 TD SCH (07:30)
[2016-09-02] MEDS: (Fluticasone/Vilanterol [Breo Ellipta 100-25 Mcg Inh] IH SCH (07:31)
[2016-09-02 09:24] LABS: BUN/Creatinine Ratio 11 (6-26); Blood Urea Nitrogen 6 mg/dL (8-26); Carbon Dioxide 21 mEq/L (19-29); Chloride 82 mEq/L (98-109); Glucose 163 mg/dL (70-99); Osmolality,Calculated 241 (280-300); Potassium 3.7 mEq/L (3.5-4.5); eGFR For African Americans > 60 (> 60); eGFR For Non-African Americans > 60 (> 60)
[2016-09-02 09:35] LABS: Sodium 115 mEq/L (136-145)
--- NOTE | 2016-09-02 09:50 | Internal Med Progress Note ---
Date of Encounter: 09/02/16 Time of Encounter: 09:46 - Assessment and plan (1) Acute exacerbation of chronic obstructive airways disease Current Visit: Yes Status: Acute Assessment and plan: Likely secondary to underlying PNA and COPD exacerbation Continue steroid and bronchodilator support O2 supplementation as needed Goal O2 sat: 89-92% Continue ABX for PNA f/u blood cultures GI ppx due to high steroid therapy (2) Hyponatremia Current Visit: Yes Status: Acute Assessment and plan: Likely multifactorial (Underlying malignancy vs. recent use of daily beer consumption) Patient reported to be noncompliant with his medical regimen in the past Na level improving Will continue to monitor Na q4h continue fluid restriction (patient not willing to comply even after detailed counseling was provided) continue NaCl tab nephrology consultation appreciated (3) Hypertension Current Visit: Yes Status: Acute Assessment and plan: No reported history but noted to have persistent hypertensive BP readings along with tachycardia Will start low dose Metoprolol 12.5mg PO BID (no wheezing noted on auscultation) Will closely monitor BP and HR Qualifiers: Hypertension type: essential hypertension Qualified Code(s): I10 - Essential (primary) hypertension (4) Tobacco abuse Current Visit: Yes Status: Chronic Assessment and plan: Smoking cessation counseling provided Patient not ready to quit at this time Nicotine replacement therapy provided (5) Metastatic lung cancer (metastasis from lung to other site) Current Visit: Yes Status: Chronic Assessment and plan: Patient reports of currently undergoing chemotherapy treatment Oncology follow up after discharge Qualifiers: Laterality: unspecified laterality Qualified Code(s): C34.90 - Malignant neoplasm of unspecified part of unspecified bronchus or lung (6) DVT prophylaxis Current Visit: No Status: Acute Assessment and plan: Heparin SQ - Subjective Interval history: Patient seen and examined at bedside. Resting in bed and reports of feeling better compared to the previous day. Reports of being an everyday smoker. - Constitutional Vitals: Temp Pulse Resp BP Pulse Ox 98.2 F 72 16 152/82 98 09/02/16 07:29 09/02/16 07:37 09/02/16 07:29 09/02/16 07:29 09/02/16 07:29 General appearance: Present: cooperative, A&O X 3, pleasant, no acute distress, answers questions appropriately - Head Head exam: Present: atraumatic, normocephalic - Eye Eye exam: Present: conjuntiva pink, sclera anicteric - ENT Additional comments: burn tay on bilateral nares - Respiratory Respiratory exam: Present: decreased breath sounds (coarse breath sounds on bilateral lower bases). Absent: respiratory distress, wheezes - Cardiovascular Cardiovascular exam: Present: +S1, +S2, tachycardia - GI/Abdominal GI/Abdominal exam: Present: normal bowel sounds, soft. Absent: distended, tenderness - Extremities Exam Extremities exam: Present: warm, radial pulses palpable and symetrical. Absent : calf tenderness, pedal edema, tenderness - Neurological Exam Neurological exam: Present: alert, oriented X3, no focal deficits - Psychiatric Psychiatric exam: Present: normal affect, normal mood Internal Medicine: Result - Labs CBC & Chem 7: 09/02/16 03:53 09/02/16 09:00 Labs: Short CBC 09/02/16 Range/Units 03:53 WBC 4.4 (4.3-11.1) K/mcL Hgb 11.9 L (12.9-16.9) g/dL Hct 31.1 L (37.5-50.1) % Plt Count 164 (140-400) K/mcL [facility] 09/02/16 09/02/16 03:53 09:00 Sodium 111 L* 115 L* Potassium 3.8 3.7 Chloride 80 L 82 L Carbon Dioxide 21 21 BUN 4 L 6 L Creatinine 0.54 L 0.57 L Glucose 118 H 163 H Calcium 8.7 9.0 Liver Function 09/02/16 Range/Units 03:53 Total Bilirubin 0.8 (0.2-1.2) mg/dL AST 26 (5-34) Units/L ALT 18 (0-55) Units/L Alkaline Phosphatase 128 H (38-126) Units/L Albumin 2.9 L (3.5-5.0) g/dL Consult Discharge Plan - Plan Referrals: Sumi Guzman MD [Partnered Physician] - 09/09/16 3:20 pm
[2016-09-02] MEDS: Budesonide/Formoterol 160/4.5 MDI IH SCH ×2 (10:16→21:22)
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
[2016-09-02] MEDS ORDERED: Tolvaptan 15 MG TABLET PO ONE ×2 (11:42→12:52)
[2016-09-02 12:38] LABS: BUN/Creatinine Ratio 14 (6-26); Blood Urea Nitrogen 8 mg/dL (8-26); Calcium 8.6 mg/dL (8.6-10.8); Carbon Dioxide 21 mEq/L (19-29); Chloride 83 mEq/L (98-109); Glucose 130 mg/dL (70-99); Osmolality,Calculated 236 (280-300); Potassium 3.9 mEq/L (3.5-4.5); eGFR For African Americans > 60 (> 60); eGFR For Non-African Americans > 60 (> 60)
[2016-09-02 12:42] LABS: Sodium 113 mEq/L (136-145)
--- NOTE | 2016-09-02 16:22 | Electrocardiograph Report ---
[address] [address] Test Date: 2016-09-01 Pat Name: Ashok Locke Department: 105 Room: 2N04 Gender: M Commercial Fisher: : 1965 Requested By: Sherif Yin Order Number: [id number] Reading MD: Brayan Lord Measurements Intervals [place] Rate: 85 P: 57 GA: 179 QRS: -25 QRSD: 101 T: 49 QT: 378 QTc: 420 Interpretive Statements SINUS RHYTHM BORDERLINE LEFT AXIS DEVIATION Electronically Signed On 09-02-2016 16:20:37 EST by Brayan Lord
[2016-09-02 16:49] LABS: BUN/Creatinine Ratio 17 (6-26); Blood Urea Nitrogen 11 mg/dL (8-26); Calcium 9.5 mg/dL (8.6-10.8); Carbon Dioxide 21 mEq/L (19-29); Chloride 92 mEq/L (98-109); Glucose 121 mg/dL (70-99); Osmolality,Calculated 261 (280-300); Potassium 3.8 mEq/L (3.5-4.5); eGFR For African Americans > 60 (> 60); eGFR For Non-African Americans > 60 (> 60)
[2016-09-02 16:55] LABS: Sodium 125 mEq/L (136-145)
[2016-09-02] MEDS ORDERED: D5% in 0.45% NACL 1,000 ML IVC ONE (18:07)
[2016-09-02] MEDS ORDERED: D5% in 0.45% NACL 1,000 ML IVC SCH (18:15)
[2016-09-02] MEDS: *HR* Promethazine 25 MG/ML VIAL IVP PRN (19:22)
[2016-09-02] MEDS: clonazePAM 0.5 MG TABLET PO PRN (19:43)
[2016-09-02] MEDS: Azithromycin 500 MG in D5% in Water 250 ML IVPB SCH (20:26)
[2016-09-02 21:04] LABS: BUN/Creatinine Ratio 21 (6-26); Blood Urea Nitrogen 15 mg/dL (8-26); Calcium 9.6 mg/dL (8.6-10.8); Carbon Dioxide 20 mEq/L (19-29); Chloride 102 mEq/L (98-109); Glucose 125 mg/dL (70-99); Osmolality,Calculated 282 (280-300); Potassium 3.8 mEq/L (3.5-4.5); eGFR For African Americans > 60 (> 60); eGFR For Non-African Americans > 60 (> 60)
[2016-09-02 21:07] LABS: Sodium 135 mEq/L (136-145)
[2016-09-02] MEDS: D5% in Water 1,000 ML IVC SCH (22:29)
[2016-09-02] MEDS ORDERED: Desmopressin 2 MCG in 0.9 % Sodium Chloride 50 ML IVPB SCH (22:30)
[2016-09-03 00:29] LABS: BUN/Creatinine Ratio 20 (6-26); Blood Urea Nitrogen 14 mg/dL (8-26); Calcium 9.8 mg/dL (8.6-10.8); Carbon Dioxide 22 mEq/L (19-29); Chloride 105 mEq/L (98-109); Glucose 139 mg/dL (70-99); Osmolality,Calculated 287 (280-300); Potassium 3.5 mEq/L (3.5-4.5); Sodium 137 mEq/L (136-145); eGFR For African Americans > 60 (> 60); eGFR For Non-African Americans > 60 (> 60)
[2016-09-03] MEDS: methylPREDNISolone 125 MG/2 ML VIAL IVP SCH ×3 (01:31→21:03)
[2016-09-03] MEDS: Ipratropium/Albuterol Neb 3 ML IH SCH ×4 (04:13→21:56)
[2016-09-03 04:24] LABS: Basophils % 0.1 %; Hematocrit 32.7 % (37.5-50.1); Hemoglobin 11.9 g/dL (12.9-16.9); Immature Granulocytes % 1.1 % (0-4); Lymphocytes # 0.2 K/mcL (0.6-4.6); Lymphocytes % 1.8 %; Mean Corpuscular HGB Conc 36.4 g/dL (31.6-35.5); Mean Corpuscular Hemoglobin 30.3 pg (28.0-33.3); Mean Corpuscular Volume 83.2 fL (83.0-100.0); Mean Platelet Volume 7.7 fL (9.4-12.4); Monocytes # 0.6 K/mcL (0.0-1.3); Monocytes % 6.2 %; Neutrophils # 9.4 K/mcL (1.6-8.9); Platelet Count 223 K/mcL (140-400); Red Blood Count 3.93 M/mcL (4.19-5.50); Red Cell Distribution Width 13.3 % (11.5-14.5); Segmented Neutrophils % 90.8 %
[2016-09-03 04:42] LABS: BUN/Creatinine Ratio 18 (6-26); Blood Urea Nitrogen 12 mg/dL (8-26); Carbon Dioxide 21 mEq/L (19-29); Chloride 99 mEq/L (98-109); Glucose 139 mg/dL (70-99); Magnesium 2.1 mg/dL (1.6-2.6); Osmolality,Calculated 274 (280-300); Potassium 3.3 mEq/L (3.5-4.5); Sodium 131 mEq/L (136-145); eGFR For African Americans > 60 (> 60); eGFR For Non-African Americans > 60 (> 60)
[2016-09-03 05:03] LABS: Platelet Estimate Normal (Normal)
[2016-09-03] MEDS: D5% in Water 1,000 ML IVC SCH ×2 (06:25→13:25)
[2016-09-03] MEDS: *HR* Heparin 5,000 UNIT/ML VIAL SQ SCH ×2 (06:25→17:42)
[2016-09-03] MEDS: Nicotine 21 MG PATCH.TD24 TD SCH (08:59)
[2016-09-03] MEDS: Megestrol Acetate 400 MG/10 ML UDC PO SCH (08:59)
[2016-09-03] MEDS: *HR* Morphine Sulfate SR (12 HR) 30 MG TABLET.ER PO SCH ×2 (08:59→21:02)
[2016-09-03] MEDS: clonazePAM 0.5 MG TABLET PO PRN (08:59)
[2016-09-03] MEDS: (Fluticasone/Vilanterol [Breo Ellipta 100-25 Mcg Inh] IH SCH (09:00)
[2016-09-03] MEDS: Sennosides 8.6 MG TABLET PO SCH ×2 (09:01→21:02)
[2016-09-03 10:19] LABS: BUN/Creatinine Ratio 16 (6-26); Blood Urea Nitrogen 10 mg/dL (8-26); Calcium 9.5 mg/dL (8.6-10.8); Carbon Dioxide 22 mEq/L (19-29); Chloride 99 mEq/L (98-109); Glucose 150 mg/dL (70-99); Osmolality,Calculated 272 (280-300); Potassium 3.7 mEq/L (3.5-4.5); Sodium 130 mEq/L (136-145); eGFR For African Americans > 60 (> 60); eGFR For Non-African Americans > 60 (> 60)
[2016-09-03] MEDS: *HR* Promethazine 25 MG/ML VIAL IVP PRN ×2 (10:25→17:45)
[2016-09-03] MEDS: *HR* OxyCODONE Immed Rel 15 MG TABLET PO PRN ×2 (10:30→17:42)
[2016-09-03] MEDS: Budesonide/Formoterol 160/4.5 MDI IH SCH ×2 (10:59→21:56)
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
[2016-09-03 17:57] LABS: BUN/Creatinine Ratio 17 (6-26); Blood Urea Nitrogen 11 mg/dL (8-26); Calcium 8.7 mg/dL (8.6-10.8); Carbon Dioxide 19 mEq/L (19-29); Chloride 97 mEq/L (98-109); Glucose 166 mg/dL (70-99); Osmolality,Calculated 265 (280-300); Potassium 3.4 mEq/L (3.5-4.5); Sodium 126 mEq/L (136-145); eGFR For African Americans > 60 (> 60); eGFR For Non-African Americans > 60 (> 60)
[2016-09-03] MEDS: Azithromycin 500 MG in D5% in Water 250 ML IVPB SCH (21:03)
[2016-09-03] MEDS ORDERED: Ondansetron 4 MG/2 ML VIAL ONE (21:46)
[2016-09-03 22:47] LABS: BUN/Creatinine Ratio 16 (6-26); Blood Urea Nitrogen 10 mg/dL (8-26); Calcium 9.1 mg/dL (8.6-10.8); Carbon Dioxide 20 mEq/L (19-29); Chloride 94 mEq/L (98-109); Glucose 139 mg/dL (70-99); Osmolality,Calculated 259 (280-300); Potassium 3.7 mEq/L (3.5-4.5); Sodium 124 mEq/L (136-145); eGFR For African Americans > 60 (> 60); eGFR For Non-African Americans > 60 (> 60)
[2016-09-04 03:02] LABS: Basophils % 0.1 %; Hematocrit 31.4 % (37.5-50.1); Hemoglobin 11.3 g/dL (12.9-16.9); Immature Granulocytes % 0.4 % (0-4); Immature Platelets 0.8 % (1.1-6.1); Lymphocytes # 0.2 K/mcL (0.6-4.6); Lymphocytes % 1.4 %; Mean Corpuscular Hemoglobin 31.1 pg (28.0-33.3); Mean Corpuscular Volume 86.5 fL (83.0-100.0); Monocytes # 0.2 K/mcL (0.0-1.3); Monocytes % 1.9 %; Platelet Count 253 K/mcL (140-400); Red Blood Count 3.63 M/mcL (4.19-5.50); Red Cell Distribution Width 13.6 % (11.5-14.5); Segmented Neutrophils % 96.2 %
[2016-09-04 03:32] LABS: BUN/Creatinine Ratio 15 (6-26); Blood Urea Nitrogen 10 mg/dL (8-26); Calcium 8.5 mg/dL (8.6-10.8); Carbon Dioxide 18 mEq/L (19-29); Chloride 97 mEq/L (98-109); Glucose 185 mg/dL (70-99); Magnesium 1.5 mg/dL (1.6-2.6); Osmolality,Calculated 264 (280-300); Phosphorous 3.5 mg/dL (2.3-4.7); Potassium 3.8 mEq/L (3.5-4.5); Sodium 125 mEq/L (136-145); eGFR For African Americans > 60 (> 60); eGFR For Non-African Americans > 60 (> 60)
[2016-09-04] MEDS: Ipratropium/Albuterol Neb 3 ML IH SCH ×4 (03:33→21:02)
[2016-09-04] MEDS: *HR* OxyCODONE Immed Rel 15 MG TABLET PO PRN ×2 (03:43→18:58)
[2016-09-04 03:58] LABS: Hypersegmented Neutrophils Present (Not Present); Platelet Estimate Normal (Normal); Toxic Granulation Present (Not Present)
[2016-09-04] MEDS: *HR* Heparin 5,000 UNIT/ML VIAL SQ SCH ×3 (06:07→19:00)
[2016-09-04 06:36] LABS: BUN/Creatinine Ratio 13 (6-26); Blood Urea Nitrogen 8 mg/dL (8-26); Calcium 8.7 mg/dL (8.6-10.8); Carbon Dioxide 21 mEq/L (19-29); Chloride 95 mEq/L (98-109); Glucose 99 mg/dL (70-99); Osmolality,Calculated 256 (280-300); Potassium 4.3 mEq/L (3.5-4.5); Sodium 124 mEq/L (136-145); eGFR For African Americans > 60 (> 60); eGFR For Non-African Americans > 60 (> 60)
[2016-09-04] MEDS: Megestrol Acetate 400 MG/10 ML UDC PO SCH (07:42)
[2016-09-04] MEDS: *HR* Morphine Sulfate SR (12 HR) 30 MG TABLET.ER PO SCH ×2 (07:43→21:20)
[2016-09-04] MEDS: Sennosides 8.6 MG TABLET PO SCH ×2 (07:44→21:19)
[2016-09-04] MEDS: methylPREDNISolone 125 MG/2 ML VIAL IVP SCH ×2 (07:44→21:20)
[2016-09-04] MEDS: Nicotine 21 MG PATCH.TD24 TD SCH (07:44)
[2016-09-04] MEDS: (Fluticasone/Vilanterol [Breo Ellipta 100-25 Mcg Inh] IH SCH (07:46)
[2016-09-04] MEDS: Budesonide/Formoterol 160/4.5 MDI IH SCH ×2 (10:16→21:02)
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
--- NOTE | 2016-09-04 11:25 | Nephrology Progress Note ---
Date of Encounter: 09/04/16 Time of Encounter: 10:00 - Assessment and Plan (1) Hyponatremia Current Visit: Yes Status: Acute Fluid restrictions were lifted yesterday and D5 water continued until the evening. Na lowered to 124 yesterday evening. This morning Na 124, K 4.3. 3/1 UOP 1375, intake 3940 with net Positive balance of 2565 Given sodium response, it is most likely that the patient is not compliant with fluid restrictions at home. He admits to drinking beer daily and expresses that he does not want to adhere to the restriction as he enjoys drinking fluids. He admits that the restrictions decrease his quality of life. The need for balance of his fluid intake to control is hyponatremia was stressed to the patient. He became tearful and upset about them. Plan: -Resume 2L fluid restriction -Discontinue IVF D5 in water -Daily BMP checks - No need for continued tolvaptan and salt tabs -Encourage patient to adhere to fluid restricted diet and refrain from drinking beer (2) Hypertension Current Visit: Yes Status: Acute Qualifiers: Hypertension type: essential hypertension Qualified Code(s): I10 - Essential (primary) hypertension (3) Metastatic lung cancer (metastasis from lung to other site) Current Visit: Yes Status: Chronic Qualifiers: Laterality: unspecified laterality Qualified Code(s): C34.90 - Malignant neoplasm of unspecified part of unspecified bronchus or lung Subjective Principal diagnosis: Hyponatremia Interval history: Patient seen and examined at bedside. Patient feels much more energetic this morning. He has concerns about restarting the fluid restriction. He states that he likes his fluids and does not want to go without them. He is concerned about giving up the things in his life that give him pleasure when he is so ill. Objective - Vital Signs Vital signs: Vital Signs Temp Pulse Resp BP Pulse Ox 09/04/16 11:19 98.1 F 92 17 123/78 97 09/04/16 10:17 18 97 09/04/16 07:39 97.8 F 82 18 136/88 97 09/04/16 07:30 72 09/04/16 03:34 18 98 09/04/16 03:23 98.2 F 90 16 127/81 95 09/03/16 23:43 98.4 F 94 16 144/89 97 09/03/16 21:59 18 98 09/03/16 19:48 97.7 F 91 12 141/96 100 09/03/16 16:06 18 97 09/03/16 15:33 97.2 F L 96 20 135/88 97 09/03/16 12:15 98.1 F 105 17 133/86 97 09/03/16 11:53 108 Intake and Output 09/03/16 09/04/16 09/04/16 23:59 07:59 15:59 Intake Total 1290 / 1290 500 / 500 360 / 360 Output Total 300 / 300 675 / 675 Balance 990 / 990 -175 / -175 360 / 360 Intake: IV Fluids 350 / 350 Zithromax 500 mg In 250 / 250 Dextrose 5% 250 ML @ 252 mls/hr IVPB Q24H [facility] Rx#: [id number] Rocephin 1,000 MG In 100 / 100 Dextrose 5% (Minibag+) 100 ML 100 ML @ 200 mls/ hr IVPB Q24H [facility] Rx#: [id number] Oral 940 / 940 500 / 500 360 / 360 Output: Urine 300 / 300 675 / 675 Other: Meal Breakfast Percent of Meal Consumed 100% Weight 64.2 kg Patient Weight 09/04/16 23:59 Weight 64.2 kg - General Appearance General appearance: Present: cachectic, chronically ill, frail EENT: Present: ATNC, mucous membranes moist Additional Comments: scabbing to b/l nares Neck: Present: no JVD, supple Respiratory: Present: course breath sounds, rhonchi Cardiology: Present: no murmurs, no rub, no gallops, no edema, regular rate, regular rhythm, normal S1, normal S2 Integumentary: Present: no rash, warm and dry Neurologic: Present: no focal deficit, alert and oriented x3 Musculoskeletal: Present: no deformities, no erythema, no cyanosis, clubbing Psychiatric: Present: depressed, cooperative - Lab 09/04/16 02:25 09/04/16 06:05 Most recent lab results Calcium 8.7 mg/dL (8.6-10.8) 09/04/16 06:05 Phosphorus 3.5 mg/dL (2.3-4.7) 09/04/16 02:25 Magnesium 1.5 mg/dL (1.6-2.6) L 09/04/16 02:25 Consult Discharge Plan - Plan Referrals: Sumi Guzman MD [Partnered Physician] - 09/09/16 3:20 pm
[2016-09-04 12:13] LABS: Bilirubin,Urine Negative (Negative); Blood,Urine Negative (Negative); Clarity,Urine Clear (Clear); Color,Urine Yellow (Yellow); Glucose,Urine (UA) Normal (Normal); Ketones,Urine Negative (Negative); Leukocyte Esterase,Urine Negative (Negative); Nitrite,Urine Negative (Negative); PH,Urine 6.5 pH Units (5.0-8.0); Protein,Urine Negative (Neg-Trace); Specific Gravity,Urine 1.014 (1.010-1.025); Urobilinogen,Urine Normal (Normal)
[2016-09-04] MEDS ORDERED: Azithromycin 250 MG TABLET PO SCH (21:00)
[2016-09-05 04:30] LABS: Basophils % 0.1 %; Hematocrit 29.4 % (37.5-50.1); Hemoglobin 10.7 g/dL (12.9-16.9); Immature Granulocytes % 0.7 % (0-4); Lymphocytes # 0.2 K/mcL (0.6-4.6); Lymphocytes % 2.5 %; Mean Corpuscular HGB Conc 36.4 g/dL (31.6-35.5); Mean Corpuscular Hemoglobin 30.8 pg (28.0-33.3); Mean Corpuscular Volume 84.7 fL (83.0-100.0); Monocytes # 0.3 K/mcL (0.0-1.3); Monocytes % 3.1 %; Neutrophils # 8.8 K/mcL (1.6-8.9); Platelet Count 165 K/mcL (140-400); Red Blood Count 3.47 M/mcL (4.19-5.50); Red Cell Distribution Width 13.6 % (11.5-14.5); Segmented Neutrophils % 93.6 %
[2016-09-05 04:43] LABS: BUN/Creatinine Ratio 18 (6-26); Blood Urea Nitrogen 10 mg/dL (8-26); Calcium 8.6 mg/dL (8.6-10.8); Carbon Dioxide 22 mEq/L (19-29); Chloride 95 mEq/L (98-109); Glucose 105 mg/dL (70-99); Magnesium 1.5 mg/dL (1.6-2.6); Osmolality,Calculated 263 (280-300); Phosphorous 4.4 mg/dL (2.3-4.7); Potassium 4.4 mEq/L (3.5-4.5); Sodium 127 mEq/L (136-145); eGFR For African Americans > 60 (> 60); eGFR For Non-African Americans > 60 (> 60)
[2016-09-05] MEDS: Ipratropium/Albuterol Neb 3 ML IH SCH ×2 (04:48→10:41)
[2016-09-05] MEDS: *HR* OxyCODONE Immed Rel 15 MG TABLET PO PRN (05:35)
[2016-09-05] MEDS ORDERED: *HR* Heparin 5,000 UNIT/ML VIAL SQ SCH (06:00)
[2016-09-05 07:28] VITALS: BP 155/96
[2016-09-05] MEDS ORDERED: Magnesium Sulfate 1 GM in D5% in Water 100 ML IVPB ONE (07:40)
[2016-09-05] MEDS: Nicotine 21 MG PATCH.TD24 TD SCH (08:56)
[2016-09-05] MEDS: Megestrol Acetate 400 MG/10 ML UDC PO SCH (08:57)
[2016-09-05] MEDS: methylPREDNISolone 125 MG/2 ML VIAL IVP SCH (08:57)
[2016-09-05] MEDS: Sennosides 8.6 MG TABLET PO SCH (08:57)
[2016-09-05] MEDS: *HR* Morphine Sulfate SR (12 HR) 30 MG TABLET.ER PO SCH (08:58)
[2016-09-05] MEDS: (Fluticasone/Vilanterol [Breo Ellipta 100-25 Mcg Inh] IH SCH (08:58)
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
--- NOTE | 2016-09-05 09:17 | Physician Discharge Referral ---
Home Health/Hosp Referral Info Transfer to: Home Health Provider in Charge Post Discharge: PCP - Diagnosis (1) Acute exacerbation of chronic obstructive airways disease Priority: Primary Status: Acute (2) Hyponatremia Priority: Primary Status: Acute (3) Hypertension Priority: Secondary Status: Chronic (4) Tobacco abuse Priority: Secondary Status: Chronic (5) Metastatic lung cancer (metastasis from lung to other site) Priority: Secondary Status: Chronic (6) DVT prophylaxis Priority: Secondary Status: Acute - Respiratory Orders Smoking Cessation: Smoking cessation has been advised. For more information, call the [place] Tobacco Quit Line at 8-214-RFOO-NOW. - Services Needed Following services are medically necessary services: Nursing, Home Health Aide, Physical Therapy - Transfer Medications Prescriptions: Azithromycin [Zithromax] 500 mg PO Q24H #2 tablet Furosemide [Lasix] 40 mg PO QAM #20 tablet Metoprolol [Lopressor] 12.5 mg PO BID #30 tablet PredniSONE 40 mg PO DAILY #7 tablet Sodium Chloride 1 gm PO BID #30 tablet Home Medications: Docusate [Colace] 100 mg PO BID #60 capsule 04/01/16 [Rx] Ondansetron [Zofran] 4 mg PO Q8HR #90 tablet 06/23/16 [Rx] Albuterol Sulfate [Albuterol Inhaler] 1 puff IH Q4H PRN #1 puff 06/26/16 [Rx] ClonazePAM [Klonopin] 0.5 mg PO BID PRN #14 tablet 07/15/16 [Rx] Zolpidem [Ambien] 10 mg PO HS #30 tablet 08/05/16 [Rx] Prochlorperazine Maleate [Compazine] 10 mg PO Q8HR #90 tablet 08/06/16 [Rx] Omeprazole [PriLOSEC] 40 mg PO DAILY 08/16/16 [History] Dexamethasone [Decadron] 4 mg PO BID #90 tab 08/18/16 [Rx] Ipratropium/Albuterol Neb [Duoneb] 3 ml IH [id number] 30 Days 08/18/16 [Rx] Potassium Chloride 20 meq PO DAILY #30 tab.er.prt 08/18/16 [Rx] Budesonide/Formoterol 160/4.5 [Symbicort 160/4.5] 2 puff IH BID 08/24/16 [ History] Fluticasone/Vilanterol [Breo Ellipta 100-25 Mcg INH] 1 puff IH DAILY 08/24/16 [ History] Morphine Sulfate [Morphine Sulfate ER] 30 mg PO BID #60 cpmp.24hr 08/28/16 [Rx] Nicotine Patch [Nicoderm] 21 mg TD DAILY #28 patch.td24 08/28/16 [Rx] Oxycodone HCl 15 mg PO Q4H PRN #90 tablet 08/28/16 [Rx] Sennosides [Senna] 8.6 tab PO BID #60 tablet 08/28/16 [Rx] Megestrol Acetate [Megace] 800 mg PO DAILY 09/01/16 [History] Azithromycin [Zithromax] 500 mg PO Q24H #2 tablet 09/05/16 [Rx] Furosemide [Lasix] 40 mg PO QAM #20 tablet 09/05/16 [Rx] Metoprolol [Lopressor] 12.5 mg PO BID #30 tablet 09/05/16 [Rx] PredniSONE 40 mg PO DAILY #7 tablet 09/05/16 [Rx] Sodium Chloride 1 gm PO BID #30 tablet 09/05/16 [Rx] Allergies/Adverse Reactions: Allergies No Known Allergies Allergy (Verified 07/14/16 08:10) Certification: Further, I certify that my clinical findings support that this patient is homebound (i.e. absences from home require considerable and taxing effort and are for medical reasons or [facility] or infrequently or short duration when for other reasons) because: Homebound Reason: Patient requires assistance of a person or device to safely leave home Attestation: My signature below is to certify that this patient is under my care and that I, or nurse practitioner, or a physician's law office assistant working with me, has a face-to -face encounter with this patient.
[2016-09-05] MEDS: Budesonide/Formoterol 160/4.5 MDI IH SCH (10:41)
== END 2016-09-05 12:15 | disposition home health service (06) | DRG 140 ==
LOC: 2NNU 16:23 → EMEROO 16:23 → 2NNU 20:02 → SUATTDRO 22:38
PROVIDERS: ADMIT Internal Medicine; ATTEND Internal Medicine

== ENCOUNTER 2016-09-12 08:38 | Observation (INO) ==
--- NOTE | 2016-09-12 08:45 | Emergency Department Note ---
Disposition Clinical Impression: Acute exacerbation of chronic obstructive airways disease, Hyponatremia Lung cancer Qualifiers: Laterality: unspecified laterality Lung location: unspecified part of lung Qualified Code(s): C34.90 - Malignant neoplasm of unspecified part of unspecified bronchus or lung Disposition: Admitted As Inpatient Condition: Serious Time of Disposition: 12:31 SOB HPI - General Stated Complaint: ANA Time Seen by Provider: 09/12/16 08:44 Source: EMS Mode of arrival: ambulatory Nursing Notes Reviewed: Yes Vital Signs Reviewed: Yes - History of Present Illness 51-year-old male history of COPD, lung cancer, oxygen dependent at baseline, patient has had worsening shortness of breath and difficulty breathing for last few days. Patient was discharged from the hospital a few weeks ago. Patient states that he has been more short of breath, has had some productive cough. Patient also reports some chest pressure or chest tightness. Patient continues to smoke cigarettes. Despite being counseled not to. Patient reports intermittent subjective fevers as well. As hematuria or dysuria. Pt Subjective Complaint: shortness of breath Onset (ago): day(s) Context: recent illness, smoke/fume exposure Severity: moderate Consistency/Duration: intermittent Improves with: oxygen Worsens with: exertion, coughing Known history of: COPD, other (Lung cancer) Associated symptoms: Reports: fever, cough, wheezing Treatment prior to arrival: none, oxygen Cough present: Yes Cough Description: Voluntary Cough Frequency: Continuous Sputum production: Yes Sputum Amount: Small Sputum Color: White - Related Data Home oxygen amount: 2 liters Home Medications Medication Instructions Recorded Confirmed Omeprazole [PriLOSEC] 40 mg PO DAILY 08/16/16 09/01/16 Budesonide/Formoterol 160/4.5 2 puff IH BID 08/24/16 09/01/16 [Symbicort 160/4.5] Fluticasone/Vilanterol [Breo 1 puff IH DAILY 08/24/16 09/01/16 Ellipta 100-25 Mcg INH] Megestrol Acetate [Megace] 800 mg PO DAILY 09/01/16 09/01/16 Previous Rx's Medication Instructions Recorded Docusate [Colace] 100 mg PO BID #60 capsule 04/01/16 Ondansetron [Zofran] 4 mg PO Q8HR #90 tablet 06/23/16 Albuterol Sulfate [Albuterol 1 puff IH Q4H PRN #1 puff 06/26/16 Inhaler] ClonazePAM [Klonopin] 0.5 mg PO BID PRN #14 tablet 07/15/16 Zolpidem [Ambien] 10 mg PO HS #30 tablet 08/05/16 Prochlorperazine Maleate 10 mg PO Q8HR #90 tablet 08/06/16 [Compazine] Dexamethasone [Decadron] 4 mg PO BID #90 tab 08/18/16 Ipratropium/Albuterol Neb [Duoneb] 3 ml IH [id number] 30 Days 08/18/16 Potassium Chloride 20 meq PO DAILY #30 tab.er.prt 08/18/16 Morphine Sulfate [Morphine Sulfate 30 mg PO BID #60 cpmp.24hr 08/28/16 ER] Nicotine Patch [Nicoderm] 21 mg TD DAILY #28 patch.td24 08/28/16 Oxycodone HCl 15 mg PO Q4H PRN #90 tablet 08/28/16 Sennosides [Senna] 8.6 tab PO BID #60 tablet 08/28/16 Azithromycin [Zithromax] 500 mg PO Q24H #2 tablet 09/05/16 Furosemide [Lasix] 40 mg PO QAM #20 tablet 09/05/16 Metoprolol [Lopressor] 12.5 mg PO BID #30 tablet 09/05/16 PredniSONE 40 mg PO DAILY #7 tablet 09/05/16 Sodium Chloride 1 gm PO BID #30 tablet 09/05/16 Allergies Allergy/AdvReac Type Severity Reaction Status Date / Time No Known Allergies Allergy Verified 07/14/16 08:10 All systems ED: reviewed and negative except as stated. Constitutional: Reports: as per HPI, fever, chills ENT ED: Denies: ear pain, throat pain Cardiovascular: Denies: chest pain, palpitations Respiratory: Reports: as per HPI, cough, dyspnea, wheezes, sputum production. Denies: hemoptysis Gastrointestinal: Denies: abdominal pain, nausea, vomiting Genitourinary: Denies: urgency, dysuria Musculoskeletal: Denies: back pain, neck pain Neurological: Denies: headache, weakness, numbness Past Medical History - Past Medical History Attestation: Yes The following information was validated with the patient. Source: patient Medical history: Reports: arthritis, cancer, COPD, other Surgical history: Reports: other (Ex lap with lysis of adhesions, cyberknife to brain mets 01/18 and 07/22) Psychiatric history: Reports: no psych history - Social History Smoking Status: Current some day smoker Smokeless Tobacco Status: No Alcohol use: Reports: heavy Drug use: Reports: none Physical Exam Constitutional: Cachectic 51-year-old male appears in moderate respiratory distress, tachycardic and tachypneic HEENT: NCAT, sclera anicteric, PERRLA bilaterally, normal external ears bilaterally, nasal septum nondeviated, average dentition, MMM Resp: Coarse breath sounds, decreased aeration tachypneic, diffuse wheezes. CV: Tachycardic no m/g/r GI: normal inspection, Soft, NTND, BS present Back: normal inspection, no tenderness to palpation Neuro: A&O3, no gross motor or sensory deficits bilaterally MSK: normal inspection, bilateral UE and LE with normal ROM Skin: No rashes, skin warm, dry, intact Course Course Narrative: 51-year-old male with COPD exacerbation also has history of pneumonia, and recent episodes of hyponatremia, will check basic lab work to do neb treatments and 250 mg IV Medrol reassess. - Reevaluation(s) Reevaluation #1: Patient with some improvement after 2 nebs, still requiring 4 L to sat 93%, sodium critically low at 111. Admit patient for COPD exacerbation and lung cancer and hyponatremia. Dr Adams accepting. Time: 12:30 Vital Signs Temperature 98.6 F 09/12/16 08:43 Pulse Rate 94 09/12/16 08:43 Respiratory Rate 22 09/12/16 08:43 Blood Pressure 144/92 09/12/16 08:43 O2 Sat by Pulse Oximetry 100 09/12/16 08:43 Temperature 98.6 F 09/12/16 08:43 Pulse Rate 90 09/12/16 10:21 Respiratory Rate 18 09/12/16 12:11 Blood Pressure 143/69 09/12/16 12:11 O2 Sat by Pulse Oximetry 98 09/12/16 10:21 Oxygen Delivery Oxygen Delivery Nasal Cannula Shortness of Breath/Dyspnea - MDM Narrative Medical decision making narrative: 49-year-old male with COPD exacerbation lung cancer and hyponatremia admitted to medicine service, serious condition - Differential Diagnosis Likely: acute exacerbation of chronic obstructive airways disease, congestive heart failure, pneumonia, asthma with exacerbation - Medical Records Medical records reviewed: Yes I reviewed the patient's medical records. - Lab Data Lab results reviewed: Yes I reviewed the patient's lab results. Result diagrams: 09/12/16 09:08 09/12/16 09:08 Lab Results 09/12/16 09/12/16 09/12/16 Range/Units 09:08 09:08 09:08 WBC 11.5 H (4.3-11.1) K/mcL RBC 3.97 L (4.19-5.50) M/mcL Hgb 12.1 L (12.9-16.9) g/dL Hct 32.3 L (37.5-50.1) % MCV 81.4 L (83.0-100.0) fL MCH 30.5 (28.0-33.3) pg MCHC 37.5 H (31.6-35.5) g/dL RDW 13.6 (11.5-14.5) % Plt Count 328 (140-400) K/mcL MPV 7.5 L (9.4-12.4) fL Immature Gran % 1.6 (0-4) % Seg Neutrophils % 83.1 % Lymphocytes % 6.4 % Monocytes % 7.9 % Eosinophils % 0.8 % Basophils % 0.2 % Neutrophils # 9.5 H (1.6-8.9) K/mcL Lymphocytes # 0.7 (0.6-4.6) K/mcL Monocytes # 0.9 (0.0-1.3) K/mcL Eosinophils # 0.1 (0.0-0.6) K/mcL Basophils # 0.0 (0.0-0.2) K/mcL Immature Plt Fraction 1.1 (1.1-6.1) % PT 11.4 (9.4-12.1) Seconds INR 1.1 APTT 28.8 (26.0-36.0) Seconds Sodium 111 L* (136-145) mEq/L Potassium 3.1 L (3.5-4.5) mEq/L Chloride 80 L (98-109) mEq/L Carbon Dioxide 23 (19-29) mEq/L BUN 5 L (8-26) mg/dL Creatinine 0.57 L (0.72-1.25) mg/dL Est GFR ( Amer) > 60 (> 60) Est GFR (Non-Af Amer) > 60 (> 60) BUN/Creatinine Ratio 9 (6-26) Glucose 81 (70-99) mg/dL Calculated Osmolality 228 L (280-300) Lactic Acid (0.5-2.2) mmol/L Calcium 8.9 (8.6-10.8) mg/dL Troponin I (0-0.03) ng/mL B-Natriuretic Peptide (0-100) pg/mL 09/12/16 09/12/16 09/12/16 Range/Units 09:08 09:08 09:08 WBC (4.3-11.1) K/mcL RBC (4.19-5.50) M/mcL Hgb (12.9-16.9) g/dL Hct (37.5-50.1) % MCV (83.0-100.0) fL MCH (28.0-33.3) pg MCHC (31.6-35.5) g/dL RDW (11.5-14.5) % Plt Count (140-400) K/mcL MPV (9.4-12.4) fL Immature Gran % (0-4) % Seg Neutrophils % % Lymphocytes % % Monocytes % % Eosinophils % % Basophils % % Neutrophils # (1.6-8.9) K/mcL Lymphocytes # (0.6-4.6) K/mcL Monocytes # (0.0-1.3) K/mcL Eosinophils # (0.0-0.6) K/mcL Basophils # (0.0-0.2) K/mcL Immature Plt Fraction (1.1-6.1) % PT (9.4-12.1) Seconds INR APTT (26.0-36.0) Seconds Sodium (136-145) mEq/L Potassium (3.5-4.5) mEq/L Chloride (98-109) mEq/L Carbon Dioxide (19-29) mEq/L BUN (8-26) mg/dL Creatinine (0.72-1.25) mg/dL Est GFR ( Amer) (> 60) Est GFR (Non-Af Amer) (> 60) BUN/Creatinine Ratio (6-26) Glucose (70-99) mg/dL Calculated Osmolality (280-300) Lactic Acid 1.0 (0.5-2.2) mmol/L Calcium (8.6-10.8) mg/dL Troponin I 0.01 (0-0.03) ng/mL B-Natriuretic Peptide 52 (0-100) pg/mL - Radiology Data Radiology results reviewed: Yes I reviewed the patient's radiology results. Chest X-Ray 09/12/16 08:47 IMPRESSION: 1. No significant change. D/ / Omar Amos MD / Omar Amos MD Interpreting Provider: Omar Amos MD - EKG Data EKG attestation: Yes I reviewed and interpreted this EKG. EKG shows normal: Reports: sinus rhythm (Patient meets per minute MD 159 QRS 105 QTC 399 left axis deviation, no ST segment elevations or depressions unchanged from previous EKG 09/01/2016) Rate: Reports: normal Rhythm: Reports: NSR [place]/QRS: Reports: normal
[2016-09-12] MEDS ORDERED: methylPREDNISolone 125 MG/2 ML VIAL IVP ONE (08:47)
[2016-09-12] MEDS ORDERED: Ipratropium/Albuterol Neb 3 ML IH ONE (08:47)
--- NOTE | 2016-09-12 08:47 | Emergency Department Note ---
Disposition Clinical Impression: Acute exacerbation of chronic obstructive airways disease, Lung cancer, Hyponatremia Disposition: Admitted As Inpatient Condition: Serious General Adult HPI - General Stated complaint: ANA Time Seen by Provider: 09/12/16 08:44 - Related Data Home Medications Medication Instructions Recorded Confirmed Omeprazole [PriLOSEC] 40 mg PO DAILY 08/16/16 09/12/16 Budesonide/Formoterol 160/4.5 2 puff IH BID 08/24/16 09/12/16 [Symbicort 160/4.5] Megestrol Acetate [Megace] 800 mg PO DAILY 09/01/16 09/12/16 Oxygen 3 l .ROUTE AD 09/12/16 09/12/16 Previous Rx's Medication Instructions Recorded Docusate [Colace] 100 mg PO BID #60 capsule 04/01/16 Ondansetron [Zofran] 4 mg PO Q8HR #90 tablet 06/23/16 Albuterol Sulfate [Albuterol 1 puff IH Q4H PRN #1 puff 06/26/16 Inhaler] ClonazePAM [Klonopin] 0.5 mg PO BID PRN #14 tablet 07/15/16 Zolpidem [Ambien] 10 mg PO HS #30 tablet 08/05/16 Prochlorperazine Maleate 10 mg PO Q8HR #90 tablet 08/06/16 [Compazine] Ipratropium/Albuterol Neb [Duoneb] 3 ml IH [id number] 30 Days 08/18/16 Potassium Chloride 20 meq PO DAILY #30 tab.er.prt 08/18/16 Morphine Sulfate [Morphine Sulfate 30 mg PO BID #60 cpmp.24hr 08/28/16 ER] Oxycodone HCl 15 mg PO Q4H PRN #90 tablet 08/28/16 Sennosides [Senna] 8.6 tab PO BID #60 tablet 08/28/16 Furosemide [Lasix] 40 mg PO QAM #20 tablet 09/05/16 Metoprolol [Lopressor] 12.5 mg PO BID #30 tablet 09/05/16 PredniSONE 40 mg PO DAILY #7 tablet 09/05/16 Sodium Chloride 1 gm PO BID #30 tablet 09/05/16 Allergies Allergy/AdvReac Type Severity Reaction Status Date / Time No Known Allergies Allergy Verified 07/14/16 08:10 Past Medical History - Past Medical History Medical history: Reports: arthritis, cancer, COPD, other Surgical history: Reports: other (Ex lap with lysis of adhesions, cyberknife to brain mets 01/18 and 07/22) Psychiatric history: Reports: no psych history - Social History Smoking Status: Current some day smoker Smokeless Tobacco Status: No Alcohol use: Reports: heavy Drug use: Reports: none Course - Reevaluation(s) Reevaluation #1: I saw the patient with the resident, Dr. Mcdonald. Patient presents with shortness of breath. Patient said he was feeling a little bit rough last night before going to bed when he woke up this morning he was pretty short of breath. He denies new fever or new cough. He is well known history of COPD and is on home oxygen and is on steroids every day. Examination shows decreased air movement but what Air does move generates wheezing bilaterally. He has got no edema to his legs. Rest of the exam unremarkable. We will start aerosol treatments and steroids. Disposition will be based on diagnostic results and reevaluation. Time: 08:46 Vital Signs Temperature 98.6 F 09/12/16 08:43 Pulse Rate 94 09/12/16 08:43 Respiratory Rate 22 09/12/16 08:43 Blood Pressure 144/92 09/12/16 08:43 O2 Sat by Pulse Oximetry 100 09/12/16 08:43 Temperature 97.4 F L 09/12/16 15:56 Pulse Rate 86 09/12/16 15:56 Respiratory Rate 18 09/12/16 16:10 Blood Pressure 149/92 09/12/16 15:56 O2 Sat by Pulse Oximetry 99 09/12/16 16:10 Oxygen Delivery Oxygen Delivery Nasal Cannula Medical Decision Making - Lab Data Result diagrams: 09/12/16 09:08 09/12/16 09:08 Lab Results 09/12/16 09/12/16 09/12/16 Range/Units 09:08 09:08 09:08 WBC 11.5 H (4.3-11.1) K/mcL RBC 3.97 L (4.19-5.50) M/mcL Hgb 12.1 L (12.9-16.9) g/dL Hct 32.3 L (37.5-50.1) % MCV 81.4 L (83.0-100.0) fL MCH 30.5 (28.0-33.3) pg MCHC 37.5 H (31.6-35.5) g/dL RDW 13.6 (11.5-14.5) % Plt Count 328 (140-400) K/mcL MPV 7.5 L (9.4-12.4) fL Immature Gran % 1.6 (0-4) % Seg Neutrophils % 83.1 % Lymphocytes % 6.4 % Monocytes % 7.9 % Eosinophils % 0.8 % Basophils % 0.2 % Neutrophils # 9.5 H (1.6-8.9) K/mcL Lymphocytes # 0.7 (0.6-4.6) K/mcL Monocytes # 0.9 (0.0-1.3) K/mcL Eosinophils # 0.1 (0.0-0.6) K/mcL Basophils # 0.0 (0.0-0.2) K/mcL Immature Plt Fraction 1.1 (1.1-6.1) % PT 11.4 (9.4-12.1) Seconds INR 1.1 APTT 28.8 (26.0-36.0) Seconds Sodium 111 L* (136-145) mEq/L Potassium 3.1 L (3.5-4.5) mEq/L Chloride 80 L (98-109) mEq/L Carbon Dioxide 23 (19-29) mEq/L BUN 5 L (8-26) mg/dL Creatinine 0.57 L (0.72-1.25) mg/dL Est GFR ( Amer) > 60 (> 60) Est GFR (Non-Af Amer) > 60 (> 60) BUN/Creatinine Ratio 9 (6-26) Glucose 81 (70-99) mg/dL Calculated Osmolality 228 L (280-300) Lactic Acid (0.5-2.2) mmol/L Calcium 8.9 (8.6-10.8) mg/dL Troponin I (0-0.03) ng/mL B-Natriuretic Peptide (0-100) pg/mL 09/12/16 09/12/16 09/12/16 Range/Units 09:08 09:08 09:08 WBC (4.3-11.1) K/mcL RBC (4.19-5.50) M/mcL Hgb (12.9-16.9) g/dL Hct (37.5-50.1) % MCV (83.0-100.0) fL MCH (28.0-33.3) pg MCHC (31.6-35.5) g/dL RDW (11.5-14.5) % Plt Count (140-400) K/mcL MPV (9.4-12.4) fL Immature Gran % (0-4) % Seg Neutrophils % % Lymphocytes % % Monocytes % % Eosinophils % % Basophils % % Neutrophils # (1.6-8.9) K/mcL Lymphocytes # (0.6-4.6) K/mcL Monocytes # (0.0-1.3) K/mcL Eosinophils # (0.0-0.6) K/mcL Basophils # (0.0-0.2) K/mcL Immature Plt Fraction (1.1-6.1) % PT (9.4-12.1) Seconds INR APTT (26.0-36.0) Seconds Sodium (136-145) mEq/L Potassium (3.5-4.5) mEq/L Chloride (98-109) mEq/L Carbon Dioxide (19-29) mEq/L BUN (8-26) mg/dL Creatinine (0.72-1.25) mg/dL Est GFR ( Amer) (> 60) Est GFR (Non-Af Amer) (> 60) BUN/Creatinine Ratio (6-26) Glucose (70-99) mg/dL Calculated Osmolality (280-300) Lactic Acid 1.0 (0.5-2.2) mmol/L Calcium (8.6-10.8) mg/dL Troponin I 0.01 (0-0.03) ng/mL B-Natriuretic Peptide 52 (0-100) pg/mL Attestation Statement - Attestation Attestation: I, Dr. Garcia, examined this patient [id number] and my medical decision- making was reviewed with Dr. Mcdonald, Resident Physician. I agree with the documented findings, disposition and treatment plan as described except to the extent set forth below. Please see my progress notes for details.
[2016-09-12 09:27] LABS: INR 1.1; Prothrombin Time 11.4 Seconds (9.4-12.1)
[2016-09-12 09:30] LABS: Activated Partial Thrombo Time 28.8 Seconds (26.0-36.0)
[2016-09-12 09:35] LABS: BUN/Creatinine Ratio 9 (6-26); Calcium 8.9 mg/dL (8.6-10.8); Carbon Dioxide 23 mEq/L (19-29); Chloride 80 mEq/L (98-109); Glucose 81 mg/dL (70-99); Osmolality,Calculated 228 (280-300); Potassium 3.1 mEq/L (3.5-4.5); eGFR For African Americans > 60 (> 60); eGFR For Non-African Americans > 60 (> 60)
[2016-09-12 09:37] LABS: Blood Urea Nitrogen 5 mg/dL (8-26); Sodium 111 mEq/L (136-145)
[2016-09-12 10:17] LABS: Basophils % 0.2 %; Eosinophils # 0.1 K/mcL (0.0-0.6); Eosinophils % 0.8 %; Hematocrit 32.3 % (37.5-50.1); Hemoglobin 12.1 g/dL (12.9-16.9); Immature Granulocytes % 1.6 % (0-4); Immature Platelets 1.1 % (1.1-6.1); Lymphocytes # 0.7 K/mcL (0.6-4.6); Lymphocytes % 6.4 %; Mean Corpuscular Hemoglobin 30.5 pg (28.0-33.3); Mean Corpuscular Volume 81.4 fL (83.0-100.0); Mean Platelet Volume 7.5 fL (9.4-12.4); Monocytes # 0.9 K/mcL (0.0-1.3); Monocytes % 7.9 %; Neutrophils # 9.5 K/mcL (1.6-8.9); Platelet Count 328 K/mcL (140-400); Red Blood Count 3.97 M/mcL (4.19-5.50); Red Cell Distribution Width 13.6 % (11.5-14.5); Segmented Neutrophils % 83.1 %
[2016-09-12 10:20] LABS: Mean Corpuscular HGB Conc 37.5 g/dL (31.6-35.5)
[2016-09-12] MEDS ORDERED: 0.9 % Sodium Chloride 1,000 ML IV ONE (12:31)
[2016-09-12] MEDS ORDERED: clonazePAM 0.5 MG TABLET PO PRN (14:33)
[2016-09-12] MEDS ORDERED: Albuterol 2.5 MG/3 ML NEBULIZER IH PRN (15:17)
--- NOTE | 2016-09-12 15:32 | Internal Med History&Physical ---
Date of Encounter: 09/12/16 Time of Encounter: 15:00 Assessment and Plan (1) Acute exacerbation of chronic obstructive airways disease Current visit: Yes Status: Acute 1 patient has chronic COPD is oxygen dependent he also continues to smoke. Presented today with increasing shortness of breath and wheezing. We will continue with oxygen titrated to maintain SPO2 greater than 92% 2 continue with bronchodilators 3 continue with steroids with taper 4 encourage patient to stop smoking (2) Hyponatremia Current visit: Yes Status: Acute 1 patient has chronic hyponatremia sodium presently 111-[id number] r/t lung CA, alcohol use- we will monitor sodium level place on seizure precautions 2 consulted nephrology- appreciate recommendations 3 we will continue with fluid restriction 4 we will continue with salt tabs (3) Lung cancer Current visit: Yes Status: Chronic 1 she is followed by oncology with Dr. Moffett, his last chemotherapy was in April 2016 he is also underwent radiation treatment. She is preparing for more chemotherapy-we will continue outpatient follow-up and consult as needed 2 . Consult the palliative concerning patient's CODE STATUS as well as possible hospice-presentl patient is living independently and is experiencing frequent falls-consulted social media developer 3 fall precautions Qualifiers: Laterality: unspecified laterality Lung location: unspecified part of lung Qualified Code(s): C34.90 - Malignant neoplasm of unspecified part of unspecified bronchus or lung (4) Chronic pain Current visit: No Status: Acute 1 patient has chronic pain related to cancer. We will continue with home pain medications have consulted palliative Qualifiers: Chronic pain type: chronic pain syndrome Qualified Code(s): G89.4 - Chronic pain syndrome (5) DVT prophylaxis Current visit: No Status: Acute 1 Lovenox- (6) Hypokalemia Current visit: Yes Status: Acute 1 patient's potassium is 3.3 we will replace with 40 mEq potassium by mouth and recheck (7) Tobacco abuse Current visit: No Status: Chronic 1 encouraged patient to stop smoking he states he is down to 8-10 cigarettes a day continue with nicotine patch Internal Medicine - H&P: HPI Chief complaint: SOB Admitted From: Emergency Dept Plans for Post Hospital Care: Home History of present illness: Mr. 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 Patient was discharged from this hospital on 09/05/16 for hyponatremia COPD exacerbation and pneumonia. Patient began to experience increased shortness of breath, wheezing he has a chronic cough last night sustaining oxygen as well as breathing treatments did not improve his symptoms. He was unable to stand and had fallen approximately 3 times denies hitting his head. He denies any fevers chills vomiting diarrhea abdominal or chest pain This a.m. shortness of breath continued and he presented to the ER for evaluation. According to ER records upon presentation patient had poor airway movement with some wheezing. He was given breathing treatments as well as steroids. Lab work revealed hyponatremia with sodium of 111 potassium 3.1 and no leukocytosis and chest x-ray with no signs of pneumonia. Patient was admitted for further workup evaluation. Presently patient appears weak and frail he denies any shortness of breath chest pain or discomfort at this time. He is on 4 L nasal cannula maintaining his oxygen saturation greater than 97%. He is hemodynamically stable at this time. I reviewed this case with Dr. Adams who agrees with plan Past Med Surg Social Fam HX - Past Medical History Medical history: arthritis, cancer, COPD, other Psychiatric history: no psych history - Past Surgical History Surgical History: other - Social History Smoking Status: Current some day smoker Packs per day: 1/4 pack a day Smokeless Tobacco Status: No Alcohol use: occasionally Drug use: none - Family History Mother Living Status: Still Living Hx Family Endocrine Disorder: Yes (DM) Father Family Member Ethnicity: Non- Living Status: Age at : 66 Cause of : COPD Hx Family Cardiac Disorders: No Hx Family Respiratory Disorders: Yes (COPD) Hx Family Cancer: No Hx Family GI Disorders: No Hx Family Endocrine Disorder: No Hx Family Neuromuscular Disorders: No Hx Family Neurologic Disorders: No Hx Family HEENT Disorders: No Hx Family Autoimmune Disorders: No Brother Adopted: No Living Status: Internal Medicine - H&P: Meds Docusate [Colace] 100 mg PO BID #60 capsule 04/01/16 [Rx] Ondansetron [Zofran] 4 mg PO Q8HR #90 tablet 06/23/16 [Rx] Albuterol Sulfate [Albuterol Inhaler] 1 puff IH Q4H PRN #1 puff 06/26/16 [Rx] ClonazePAM [Klonopin] 0.5 mg PO BID PRN #14 tablet 07/15/16 [Rx] Zolpidem [Ambien] 10 mg PO HS #30 tablet 08/05/16 [Rx] Prochlorperazine Maleate [Compazine] 10 mg PO Q8HR #90 tablet 08/06/16 [Rx] Omeprazole [PriLOSEC] 40 mg PO DAILY 08/16/16 [History] Ipratropium/Albuterol Neb [Duoneb] 3 ml IH [id number] 30 Days 08/18/16 [Rx] Potassium Chloride 20 meq PO DAILY #30 tab.er.prt 08/18/16 [Rx] Budesonide/Formoterol 160/4.5 [Symbicort 160/4.5] 2 puff IH BID 08/24/16 [ History] Morphine Sulfate [Morphine Sulfate ER] 30 mg PO BID #60 cpmp.24hr 08/28/16 [Rx] Oxycodone HCl 15 mg PO Q4H PRN #90 tablet 08/28/16 [Rx] Sennosides [Senna] 8.6 tab PO BID #60 tablet 08/28/16 [Rx] Megestrol Acetate [Megace] 800 mg PO DAILY 09/01/16 [History] Furosemide [Lasix] 40 mg PO QAM #20 tablet 09/05/16 [Rx] Metoprolol [Lopressor] 12.5 mg PO BID #30 tablet 09/05/16 [Rx] PredniSONE 40 mg PO DAILY #7 tablet 09/05/16 [Rx] Sodium Chloride 1 gm PO BID #30 tablet 09/05/16 [Rx] Oxygen 3 l .ROUTE AD 09/12/16 [History] Allergies No Known Allergies Allergy (Verified 07/14/16 08:10) All Systems PM: A 10-system review of systems was performed and is negative for pertinent findings except as documented above in the HPI. - Constitutional Constitutional: falls, weakness - EENT Eyes: no change in vision, no discharge, no pain, no photophobia - Cardiovascular Cardiovascular ROS IM: no chest pain, no diaphoresis, no dyspnea, no lightheadedness, no palpitations, no syncope - Respiratory Respiratory: cough, dyspnea, wheezing, no excessive phlegm production - Gastrointestinal Gastrointestinal: no abdominal pain, no diarrhea, no hematemesis, no hematochezia, no melena, no nausea, no vomiting - Musculoskeletal Musculoskeletal ROS IM: no numbness, no tingling - Integumentary Integumentary IM: no rash, no unusual bruising - Neurological Neurological ROS: no confusion, no convulsions, no focal weakness, no numbness, no tingling, no tremor(s) - Constitutional Vitals: Temp Pulse Resp BP Pulse Ox 98 F 99 16 142/81 99 09/12/16 13:14 09/12/16 13:14 09/12/16 13:14 09/12/16 13:14 09/12/16 13:14 General appearance: Present: cachectic, A&O X 3 - Head Head exam: Present: atraumatic, normocephalic - Respiratory Respiratory exam: Present: CTAB. Absent: accessory muscle use, rales, rhonchi, wheezes - Cardiovascular Cardiovascular exam: Present: RRR, +S1, +S2. Absent: diastolic murmur, gallop, rubs, systolic murmur - GI/Abdominal GI/Abdominal exam: Present: normal bowel sounds, soft, no peritoneal signs. Absent: distended, tenderness - Extremities Exam Extremities exam: Present: warm, radial pulses palpable and symetrical. Absent : calf tenderness, cyanotic, pedal edema - Neurological Exam Neurological exam: Present: CN II-XII intact, oriented X3, no focal deficits. Absent: pronater drift, facial droop, speech deficit - Skin Skin exam: Present: abrasion, dry, intact Additional comments: to L elbow Internal Med - H&P Results - Labs CBC & Chem 7: 09/12/16 09:08 09/12/16 09:08 - EKG Data EKG shows normal: sinus rhythm - Diagnostic Studies Chest x-ray Additional comments: Chest X-Ray 09/12/16 08:47 IMPRESSION: 1. No significant change. D/ / Omar Amos MD / Omar Amos MD Interpreting Provider: Omar Amos MD
[2016-09-12] MEDS ORDERED: Ipratropium/Albuterol Neb 3 ML IH SCH (16:00)
--- NOTE | 2016-09-12 16:07 | Event Note ---
Date of Encounter: 09/12/16 Time of Encounter: 16:06 Palliative care consult for goals of care. Plan for family meeting with patient , his mother-Zelda, and his sister regarding goals of care. Meeting planned for 12:00.
[2016-09-12] MEDS: Ipratropium/Albuterol Neb 3 ML IH SCH ×2 (16:10→21:49)
[2016-09-12] MEDS: *HR* OxyCODONE Immed Rel 15 MG TABLET PO PRN (16:13)
[2016-09-12] MEDS: Nicotine 14 MG PATCH.TD24 TD SCH (16:13)
[2016-09-12] MEDS: ONDANSETRON 4 MG PO SCH (16:14)
--- NOTE | 2016-09-12 16:55 | Nephrology Consult Note ---
<Loren Baca - Last Filed: 09/12/16 17:57> Date of Encounter: 09/12/16 Time of Encounter: 16:50 Assessment and Plan (1) Hyponatremia Current Visit: Yes Status: Acute Patient with lung ca with mets to brain and chronic hyponatremia presents with sodium of 111. Patient states since prior discharge he has been adhering to his fluid restriction, but he does not measure so he does not know how much he is actually drinking. He is still drinking 3-4 12 ounce beers daily and smoking 8- 11 cigarettes daily. He does note that he has bilateral LE edema, which he normally does not have on admission. He states it has started since they stopped his lasix. The patient and his family will have a meeting with Palliative to discuss possible hospice options. The patient has had multiple admissions with hyponatremia since August 06. He is not adhering to fluid restrictions at home and continues to drink beer daily. Hospice and palliative care would be good options for him at this point. We will consider adding demiclocycline at discharge to minimize the patient's readmission rates. Na 111, K 3.1, Serum osmol 228 Plan: -1 L fluid restriction -Salt Tabs 1gm BID -Regular diet with salt packets at meals -Urine Na, Urine osmolality, uric acid -Strict I/Os, daily weights. Thank you for consulting [facility] (2) Hypokalemia Current Visit: Yes Status: Acute (3) Lung cancer Current Visit: Yes Status: Chronic Qualifiers: Laterality: unspecified laterality Lung location: unspecified part of lung Qualified Code(s): C34.90 - Malignant neoplasm of unspecified part of unspecified bronchus or lung (4) Acute exacerbation of chronic obstructive airways disease Current Visit: No Status: Acute History of Present Illness - Reason for Consult Consult date: 09/12/16 hyponatremia Requesting physician: Ruma Souht - Chief Complaint SOB - History of Present Illness Mr. Locke is a 51 year old male with a PMH of chronic COPD on oxygen, chronic hyponatremia, lung CA with metastases to the brain, and tobacco abuse. The patient was discharged from this hospital on 09/05/16 for hyponatremia, COPD exacerbation and pneumonia. Patient began to experience increased shortness of breath, wheezing last night. Oxygen use as well as breathing treatments did not improve his symptoms. He was unable to stand and had fallen approximately 3 times, landing on his left shoulder, elbow and may have hit the left side of his head, although he can't remember more than one of his falls. Workup in the ER revealed the patient had a critical hyponatremia with a sodium of 111. The patient has a history of lung cancer and chronic hyponatremia. He has recently been in the hospital multiple times in the last month with hyponatremia. He has had 4 hospitalizations since Aug 06. His baseline sodium is 119-120. The patient has been discharged home on a fluid restriction, which he states that he has adhered to. He does, however, admit that he has been drinking at least 2-4 cans of beer (12oz) nightly. He is also smoking 8-10 cigarettes per day. The patient complains of increased SOB, chest pain, edema and chills. He denies abdominal pain, fevers, dysuria, hematuria. He states that he has had edema since his water pill was stopped. He is here with his mother today and they have a meeting with Palliative Care tomorrow to discuss options for hospice upon discharge. Past Med Surg Social Fam HX - Past Medical History Medical history: arthritis, cancer, COPD, other Psychiatric history: no psych history - Past Surgical History Surgical History: other - Social History Smoking Status: Current some day smoker Packs per day: 1/4 pack a day Smokeless Tobacco Status: No Alcohol use: occasionally Drug use: none - Family History Mother Living Status: Still Living Hx Family Endocrine Disorder: Yes (DM) Father Family Member Ethnicity: Non- Living Status: Age at : 66 Cause of : COPD Hx Family Cardiac Disorders: No Hx Family Respiratory Disorders: Yes (COPD) Hx Family Cancer: No Hx Family GI Disorders: No Hx Family Endocrine Disorder: No Hx Family Neuromuscular Disorders: No Hx Family Neurologic Disorders: No Hx Family HEENT Disorders: No Hx Family Autoimmune Disorders: No Brother Adopted: No Living Status: Medications and Allergies Docusate [Colace] 100 mg PO BID #60 capsule 04/01/16 [Rx] Ondansetron [Zofran] 4 mg PO Q8HR #90 tablet 06/23/16 [Rx] Albuterol Sulfate [Albuterol Inhaler] 1 puff IH Q4H PRN #1 puff 06/26/16 [Rx] ClonazePAM [Klonopin] 0.5 mg PO BID PRN #14 tablet 07/15/16 [Rx] Zolpidem [Ambien] 10 mg PO HS #30 tablet 08/05/16 [Rx] Prochlorperazine Maleate [Compazine] 10 mg PO Q8HR #90 tablet 08/06/16 [Rx] Omeprazole [PriLOSEC] 40 mg PO DAILY 08/16/16 [History] Ipratropium/Albuterol Neb [Duoneb] 3 ml IH [id number] 30 Days 08/18/16 [Rx] Potassium Chloride 20 meq PO DAILY #30 tab.er.prt 08/18/16 [Rx] Budesonide/Formoterol 160/4.5 [Symbicort 160/4.5] 2 puff IH BID 08/24/16 [ History] Morphine Sulfate [Morphine Sulfate ER] 30 mg PO BID #60 cpmp.24hr 08/28/16 [Rx] Oxycodone HCl 15 mg PO Q4H PRN #90 tablet 08/28/16 [Rx] Sennosides [Senna] 8.6 tab PO BID #60 tablet 08/28/16 [Rx] Megestrol Acetate [Megace] 800 mg PO DAILY 09/01/16 [History] Furosemide [Lasix] 40 mg PO QAM #20 tablet 09/05/16 [Rx] Metoprolol [Lopressor] 12.5 mg PO BID #30 tablet 09/05/16 [Rx] PredniSONE 40 mg PO DAILY #7 tablet 09/05/16 [Rx] Sodium Chloride 1 gm PO BID #30 tablet 09/05/16 [Rx] Oxygen 3 l .ROUTE AD 09/12/16 [History] Allergies No Known Allergies Allergy (Verified 07/14/16 08:10) Review of Systems All Systems: reviewed and no additional remarkable complaints except as stated Exam - Vital Signs Vital signs: Initial Vital Signs Temp Pulse Resp BP Pulse Ox 98.6 F 94 22 144/92 100 09/12/16 08:43 09/12/16 08:43 09/12/16 08:43 09/12/16 08:43 09/12/16 08:43 Vital Signs - Last 8 Hours Temp Pulse Resp BP Pulse Ox 09/12/16 16:10 18 99 09/12/16 15:56 97.4 F L 86 16 149/92 99 - General Appearance General appearance: cachectic, chronically ill, fatigue, frail EENT: ATNC, mucous membranes dry Neck: no JVD, supple Respiratory: wheezing, course breath sounds, rhonchi Cardiology: no murmurs, no rub, no gallops, edema (b/l LE), regular rate, regular rhythm, normal S1, normal S2 Gastrointestinal: normoactive bowel sounds, no tenderness, no guarding Integumentary: no rash, warm and dry Neurologic: no focal deficit, no asterixis, alert and oriented x3, strength 5/5 Musculoskeletal: no erythema, no cyanosis, clubbing Additional Comments: Port in place right anterior chest, no erythema noted surrounding site. Psychiatric: depressed Additional Comments: patient appears fatigued, drowsy Results - Lab Results 09/12/16 09:08 09/12/16 09:08 Most recent lab results Calcium 8.9 mg/dL (8.6-10.8) 09/12/16 09:08 Consult Discharge Plan - Plan Referrals: Juma French DO [Primary Care Provider] - <Deepali Gonzalez - Last Filed: 09/13/16 13:59> Exam - Vital Signs Vital signs: Initial Vital Signs Temp Pulse Resp BP Pulse Ox 98.6 F 94 22 144/92 100 09/12/16 08:43 09/12/16 08:43 09/12/16 08:43 09/12/16 08:43 09/12/16 08:43 Vital Signs - Last 8 Hours Temp Pulse Resp BP Pulse Ox 09/13/16 12:00 80 15 131/85 99 09/13/16 10:24 18 99 09/13/16 08:01 152/91 09/13/16 07:59 98.3 F 85 15 163/103 97 Intake and Output 09/12/16 09/13/16 09/13/16 23:59 07:59 15:59 Intake Total 480 / 480 0 / 0 240 / 240 Output Total 925 / 925 200 / 200 Balance -445 / -445 -200 / -200 240 / 240 Intake: Oral 480 / 480 0 / 0 240 / 240 Output: Urine 925 / 925 200 / 200 Other: Meal Dinner Percent of Meal Consumed 95% 100% Results - Lab Results 09/13/16 04:15 09/13/16 11:50 Most recent lab results Calcium 8.2 mg/dL (8.6-10.8) L 09/13/16 11:50 Magnesium 1.7 mg/dL (1.6-2.6) 09/13/16 04:15 Urine Creatinine 31 mg/dL 09/12/16 19:20 Urine Sodium 40.0 mEq/L 09/12/16 19:20 - Attending Attestation I examined this patient and my medical decision-making was reviewed with the GOLF CADDY/PA/Advanced Practice Nurse/Resident Physician. I agree with the documented findings, disposition and treatment plan as described except to the extent set forth below. pt seen and examined with chronic hyponatremia due to metastatic lung cancer to the brain admitted once more for acute hyponatremia after a recent discharge due to continued beer consumption approx. 36-48oz a day in addition to other fluids while on salt tabs. Aggressive fluid restriction at 1 liter advised Serial sodium checks Salt tabs 2gram bid advised Will consider adding demeclocycline to regimen on discharge for SIADH Agree with hospice evaluation
[2016-09-12] MEDS: methylPREDNISolone 125 MG/2 ML VIAL IVP SCH (18:28)
[2016-09-12] MEDS ORDERED: Naloxone 0.4 MG/ML INJ IVP PRN (19:00)
[2016-09-12] MEDS: Sennosides 8.6 MG TABLET PO SCH (20:38)
[2016-09-12 21:02] LABS: Creatinine,Urine 31 mg/dL; Microalbum/Creatinine Ratio,Ur 35 (0-30); Microalbumin,Urine 11 mg/L
[2016-09-12] MEDS: Budesonide/Formoterol 160/4.5 MDI IH SCH (21:49)
[2016-09-13] MEDS: methylPREDNISolone 125 MG/2 ML VIAL IVP SCH ×5 (00:17→23:43)
[2016-09-13] MEDS: *HR* Morphine Sulfate SR (12 HR) 30 MG TABLET.ER PO SCH ×3 (00:19→20:09)
[2016-09-13] MEDS: ONDANSETRON 4 MG PO SCH ×4 (00:19→23:35)
[2016-09-13] MEDS: Ipratropium/Albuterol Neb 3 ML IH SCH ×4 (04:19→23:28)
[2016-09-13 04:50] LABS: BUN/Creatinine Ratio 15 (6-26); Blood Urea Nitrogen 8 mg/dL (8-26); Calcium 8.8 mg/dL (8.6-10.8); Carbon Dioxide 22 mEq/L (19-29); Chloride 86 mEq/L (98-109); Glucose 112 mg/dL (70-99); Magnesium 1.7 mg/dL (1.6-2.6); Osmolality,Calculated 239 (280-300); Potassium 3.7 mEq/L (3.5-4.5); eGFR For African Americans > 60 (> 60); eGFR For Non-African Americans > 60 (> 60)
[2016-09-13 04:53] LABS: Sodium 115 mEq/L (136-145)
[2016-09-13] MEDS: *HR* Enoxaparin 40 MG/0.4 ML SYRINGE SQ SCH (05:53)
[2016-09-13] MEDS: *HR* OxyCODONE Immed Rel 15 MG TABLET PO PRN (06:01)
[2016-09-13 07:22] LABS: Basophils % 0.1 %; Hematocrit 29.5 % (37.5-50.1); Hemoglobin 10.9 g/dL (12.9-16.9); Immature Granulocytes % 0.9 % (0-4); Immature Platelets 1.3 % (1.1-6.1); Lymphocytes # 0.2 K/mcL (0.6-4.6); Lymphocytes % 2.5 %; Mean Corpuscular HGB Conc 36.9 g/dL (31.6-35.5); Mean Corpuscular Hemoglobin 30.8 pg (28.0-33.3); Mean Corpuscular Volume 83.3 fL (83.0-100.0); Mean Platelet Volume 7.6 fL (9.4-12.4); Monocytes # 0.2 K/mcL (0.0-1.3); Monocytes % 2.8 %; Neutrophils # 7.5 K/mcL (1.6-8.9); Platelet Count 267 K/mcL (140-400); Red Blood Count 3.54 M/mcL (4.19-5.50); Red Cell Distribution Width 13.9 % (11.5-14.5); Segmented Neutrophils % 93.7 %
[2016-09-13 08:10] LABS: Hemoglobin A1C 5.5 %
[2016-09-13] MEDS: Megestrol Acetate 400 MG/10 ML UDC PO SCH (08:46)
[2016-09-13] MEDS: Nicotine 14 MG PATCH.TD24 TD SCH (08:48)
[2016-09-13] MEDS: Sennosides 8.6 MG TABLET PO SCH ×2 (08:50→20:08)
[2016-09-13] MEDS: Budesonide/Formoterol 160/4.5 MDI IH SCH ×2 (10:24→23:28)
--- NOTE | 2016-09-13 12:09 | Nephrology Progress Note ---
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 Palliative care/hospice on board Qualifiers: Laterality: unspecified laterality Lung location: unspecified part of lung Qualified Code(s): C34.90 - Malignant neoplasm of unspecified part of unspecified bronchus or lung Subjective Interval history: Pt seen and examined with family present along with palliative care. Pt eager to go home as soon as possible with hospice care Objective - Vital Signs Vital signs: Vital Signs Temp Pulse Resp BP Pulse Ox 09/13/16 12:00 80 15 131/85 99 09/13/16 10:24 18 99 09/13/16 08:01 152/91 09/13/16 07:59 98.3 F 85 15 163/103 97 09/13/16 04:20 98.5 F 75 16 152/92 97 09/13/16 04:14 17 97 09/12/16 23:23 98.6 F 85 16 134/91 98 09/12/16 21:49 16 99 09/12/16 20:20 98 09/12/16 19:47 98.6 F 87 16 144/90 100 09/12/16 16:10 18 99 09/12/16 15:56 97.4 F L 86 16 149/92 99 09/12/16 13:14 98 F 99 16 142/81 99 09/12/16 12:11 18 143/69 Intake and Output 09/12/16 09/13/16 09/13/16 23:59 07:59 15:59 Intake Total 480 / 480 0 / 0 240 / 240 Output Total 925 / 925 200 / 200 Balance -445 / -445 -200 / -200 240 / 240 Intake: Oral 480 / 480 0 / 0 240 / 240 Output: Urine 925 / 925 200 / 200 Other: Meal Dinner Percent of Meal Consumed 95% 100% - General Appearance General appearance: Present: chronically ill, frail EENT: Present: ATNC, mucous membranes dry Neck: Present: no JVD, supple Respiratory: Present: course breath sounds (with face mask) Cardiology: Present: edema (trace LE bilat), normal S1, normal S2 Gastrointestinal: Present: no tenderness, no guarding Integumentary: Present: warm and dry Neurologic: Present: no focal deficit Musculoskeletal: Present: no deformities Psychiatric: Present: mood/affect appropriate - Lab 09/13/16 04:15 09/13/16 11:50 Most recent lab results Calcium 8.8 mg/dL (8.6-10.8) 09/13/16 04:15 Magnesium 1.7 mg/dL (1.6-2.6) 09/13/16 04:15 Urine Creatinine 31 mg/dL 09/12/16 19:20 Urine Sodium 40.0 mEq/L 09/12/16 19:20 Consult Discharge Plan - Plan Referrals: Juma French DO [Primary Care Provider] -
[2016-09-13 12:15] LABS: BUN/Creatinine Ratio 17 (6-26); Blood Urea Nitrogen 9 mg/dL (8-26); Calcium 8.2 mg/dL (8.6-10.8); Carbon Dioxide 21 mEq/L (19-29); Chloride 88 mEq/L (98-109); Glucose 104 mg/dL (70-99); Osmolality,Calculated 245 (280-300); Potassium 4.2 mEq/L (3.5-4.5); eGFR For African Americans > 60 (> 60); eGFR For Non-African Americans > 60 (> 60)
[2016-09-13 12:18] LABS: Sodium 118 mEq/L (136-145)
--- NOTE | 2016-09-13 14:47 | Palliative - Consult Note ---
Date of Encounter: 09/13/16 Time of Encounter: 14:43 - Assessment and Plan (1) Cancer associated pain Current Visit: Yes Status: Chronic Assessment and plan: Recommend continuing current medication regimen of MS Contin 30 mg twice a day as scheduled, with oxycodone 15 mg 4 hours as needed. May need to adjust doses as necessary. Prescriptions completed for home medications as the patient is out of refills. (2) Lung cancer Current Visit: Yes Status: Chronic Assessment and plan: Following oncology as outpatient Qualifiers: Laterality: unspecified laterality Lung location: unspecified part of lung Qualified Code(s): C34.90 - Malignant neoplasm of unspecified part of unspecified bronchus or lung (3) Goals of care, counseling/discussion Current Visit: Yes Status: Acute Assessment and plan: Reviewed goals of care with the patient, his mother/POA-Evita, sister-Isabel, and niece-Julita. Discussed code status options. Mr. Locke has elected to change code status to DNR-CC. Also reviewed hospice care and philosophy. Mr. Locke is interested in discharging home with hospice services as soon as possible, but he is willing to stay one more night to allow hospice services to be set up. Mr. Locke' family requested [facility] as they have had interactions with them in the past. State DNR form completed. Upon discharge, he will need Rx for MS Contin, oxycodone as baseline meds (completed, on file with nursing staff). He will also need oral morphine concentrate and oral lorazepam concentrate (Rx completed and on file). visitor services associate consult to assist with transition home. Referral to [facility] hospice completed per oncology social work. Tentative discharge plans pending insurance approval of hospice care. Discussed case with the patient's hospitalist as well as oncology social work and primary care nurse (4) Generalized anxiety disorder Current Visit: No Status: Chronic Assessment and plan: Continue clonazepam 0.5 mg twice a day as scheduled. Upon discharge from hospital in enrollment in hospice, may utilize lorazepam if clonazepam is ineffective Palliative-CN HPI - Data of Consult Patient: known to practice within the last 3 years Consult date: 09/13/16 Requesting Physician: Yaritza Kenney MD Primary Care Provider: Juma French, DO - Consult Narrative Palliative Care/Comfort Measures: Palliative care Reason for consult: Goals of care History of present illness: Mr. Locke is a 51 year old male patient well known to the palliative care team from prior admissions. He was diagnosed with metastatic squamous cell lung cancer in December 2015 following an acute exacerbation of COPD. He has been on nivolumab most recently for his cancer treatment, but has only received 1 dose. Mr. Locke has undergone CyberKnife treatment on 2 separate occasions for metastatic brain lesions. He has also completed palliative radiation to his neck for enlarging lymph nodes. Since the beginning of August 2016, Mr. Locke has had 4 hospitalizations for exacerbation of his lung disease. He is also battling chronic hyponatremia requiring the addition of salt tablets and fluid restriction, for which he is noncompliant. Mr. Locke continues to smoke one half pack of cigarettes per day, and drink 4 beers per day. He is well aware of the consequences of his actions including persistent hyponatremia and further exacerbation of COPD. Mr. Locke has been treating cancer associated chest pain with MS Contin 30 mg twice a day, and oxycodone 15 mg every 4 hours as needed for breakthrough pain. He reports average pain level at a 7 out of 10, and pain medications make it "tolerable". He continues to feel short of breath with activity, and is unable to walk more than 10 feet without crippling dyspnea. Even at rest, Mr. Locke experiences conversational dyspnea. Prior to admission, Mr. Locke developed worsening shortness of breath and wheezing. Symptoms did not improve with the use of home breathing treatments. He was also exhibiting symptoms of hyponatremia, including falling and altered mental status. He was admitted for further workup and evaluation area and nephrology was consulted for management of hyponatremia, palliative care was consulted to assist with goals of care planning. CC: Yaritza Kenney MD Past Med Surg Social Fam HX - Past Medical History Source: patient, old records reviewed, obtained from family Medical history: arthritis, cancer, COPD, other Psychiatric history: no psych history - Past Surgical History Surgical History: other (Ex lap with lysis of adhesions, cyberknife to brain mets 01/18 and 07/22) - Social History Smoking Status: Current some day smoker Packs per day: 1/4 pack a day Smokeless Tobacco Status: No Alcohol use: heavy Drug use: none - Family History Mother Living Status: Still Living Hx Family Endocrine Disorder: Yes (DM) Father Family Member Ethnicity: Non- Living Status: Age at : 66 Cause of : COPD Hx Family Cardiac Disorders: No Hx Family Respiratory Disorders: Yes (COPD) Hx Family Cancer: No Hx Family GI Disorders: No Hx Family Endocrine Disorder: No Hx Family Neuromuscular Disorders: No Hx Family Neurologic Disorders: No Hx Family HEENT Disorders: No Hx Family Autoimmune Disorders: No Brother Adopted: No Living Status: Medications and Allergies Docusate [Colace] 100 mg PO BID #60 capsule 04/01/16 [Rx] Ondansetron [Zofran] 4 mg PO Q8HR #90 tablet 06/23/16 [Rx] Albuterol Sulfate [Albuterol Inhaler] 1 puff IH Q4H PRN #1 puff 06/26/16 [Rx] ClonazePAM [Klonopin] 0.5 mg PO BID PRN #14 tablet 07/15/16 [Rx] Zolpidem [Ambien] 10 mg PO HS #30 tablet 08/05/16 [Rx] Prochlorperazine Maleate [Compazine] 10 mg PO Q8HR #90 tablet 08/06/16 [Rx] Omeprazole [PriLOSEC] 40 mg PO DAILY 08/16/16 [History] Ipratropium/Albuterol Neb [Duoneb] 3 ml IH [id number] 30 Days 08/18/16 [Rx] Potassium Chloride 20 meq PO DAILY #30 tab.er.prt 08/18/16 [Rx] Budesonide/Formoterol 160/4.5 [Symbicort 160/4.5] 2 puff IH BID 08/24/16 [ History] Sennosides [Senna] 8.6 tab PO BID #60 tablet 08/28/16 [Rx] Megestrol Acetate [Megace] 800 mg PO DAILY 09/01/16 [History] Furosemide [Lasix] 40 mg PO QAM #20 tablet 09/05/16 [Rx] Metoprolol [Lopressor] 12.5 mg PO BID #30 tablet 09/05/16 [Rx] PredniSONE 40 mg PO DAILY #7 tablet 09/05/16 [Rx] Sodium Chloride 1 gm PO BID #30 tablet 09/05/16 [Rx] Oxygen 3 l .ROUTE AD 09/12/16 [History] LORazepam Oral Conc [Ativan Oral Conc] 1 mg PO Q6HR PRN #15 mls 09/13/16 [Rx] Morphine Oral CONC [Roxanol] 20 mg SL Q2H PRN #30 ml 09/13/16 [Rx] Morphine Sulfate [Morphine Sulfate ER] 30 mg PO BID #14 cpmp.24hr 09/13/16 [Rx] Oxycodone HCl 15 mg PO Q4H PRN #30 tablet 09/13/16 [Rx] Allergies No Known Allergies Allergy (Verified 07/14/16 08:10) - Constitutional Constitutional ROS PAL: decreased appetite, fatigue, frequent falls, weight loss - EENT Eyes: discharge (Clear discharge from left eye, chronic) Ears, nose, mouth, throat: no dysphagia - Cardiovascular Cardiovascular ROS: chest pain (Chronic chest pain related to cancer), diaphoresis, dyspnea on exertion, no irregular heart rhythm, no pedal edema - Respiratory Respiratory: cough, dyspnea, dyspnea on exertion, wheezing, no hemoptysis - Gastrointestinal Gastrointestinal: constipation, no abdominal pain, no bloating, no diarrhea, no nausea, no vomiting - Genitourinary Genitourinary ROS male: no difficulty urinating - Musculoskeletal Musculoskeletal ROS IM: arthralgias, back pain, muscle weakness - Integumentary ROS Integumentary: no sores, no wounds - Neurological Neurological ROS: confusion, dizziness, frequent falls, lack of coordination, weakness - Psychiatric Psychiatric general PM: anxiety Palliative Care-Exam - Constitutional Vitals: Temp Pulse Resp BP Pulse Ox 98.3 F 80 15 131/85 99 09/13/16 07:59 09/13/16 12:00 09/13/16 12:00 09/13/16 12:00 09/13/16 12:00 General appearance: Present: cooperative, no acute distress, thin Exam: 51-year-old male patient appearing chronically ill - Head Head Exam: Present: atraumatic - Eye Eye exam: Present: EOMI Pupils: Present: PERRL - ENT ENT exam: Present: mucous membranes moist - Respiratory Respiratory exam: Present: accessory muscle use, decreased breath sounds, prolonged expiratory phase, wheezes - Cardiovascular Cardiovascular exam: Present: tachycardia. Absent: bradycardia, irregular rhythm - GI/Abdominal Exam GI/Abdominal exam: Present: normal bowel sounds, soft. Absent: tenderness - Extremities Exam Extremities exam: Present: normal inspection - Neurological Exam Neurological exam: Present: alert, oriented X3, no focal deficits, strengths equal and symetr throughout - Psychiatric Psychiatric exam: Absent: agitated, anxious Internal Medicine - CN: Reslt - Labs CBC & Chem 7: 09/13/16 04:15 09/13/16 11:50 Labs: Short CBC 09/13/16 Range/Units 04:15 WBC 8.0 (4.3-11.1) K/mcL Hgb 10.9 L (12.9-16.9) g/dL Hct 29.5 L (37.5-50.1) % Plt Count 267 (140-400) K/mcL Neutrophils # 7.5 (1.6-8.9) K/mcL BMP 09/13/16 09/13/16 04:15 11:50 Sodium 115 L* 118 L* Potassium 3.7 4.2 Chloride 86 L 88 L Carbon Dioxide 22 21 BUN 8 9 Creatinine 0.55 L 0.52 L Glucose 112 H 104 H Calcium 8.8 8.2 L - ABG Interpretation ABG results: PT/INR, D-dimer PT 11.4 Seconds (9.4-12.1) 09/12/16 09:08 Consult Discharge Plan - Plan Referrals: Juma French, [Primary Care Provider] - Prescriptions: LORazepam Oral Conc [Ativan Oral Conc] 1 mg PO Q6HR PRN #15 mls PRN Reason: anxiety/agitation Morphine Oral CONC [Roxanol] 20 mg SL Q2H PRN #30 ml PRN Reason: pain or shortness of breath Morphine Sulfate [Morphine Sulfate ER] 30 mg PO BID #14 cpmp.24hr Oxycodone HCl 15 mg PO Q4H PRN #30 tablet PRN Reason: Pain Palliative Quality Palliative Quality: Screen for Code Status: Yes, Screen for Goals of Care: Yes, Screen for Pain: Yes, If Pain Regimen Started, Initiate Bowel Regimen: Yes, Screen for Nausea/Vomitting: Yes Code Status: 09/12/16 14:30 Resuscitation Status: Active [RES] Routine Comment: Resuscitation Status: Full Code
--- NOTE | 2016-09-13 17:01 | Internal Med Progress Note ---
Date of Encounter: 09/13/16 Time of Encounter: 10:00 - Assessment and plan (1) Acute exacerbation of chronic obstructive airways disease Current Visit: Yes Status: Acute Assessment and plan: Improved after treatment. We will continue palliative and supportive treatment as patient would like to pursue hospice. (2) Hyponatremia Current Visit: Yes Status: Acute Assessment and plan: Improved. Patient has chronic hyponatremia and tolerated well. Will avoid fast correction. (3) Lung cancer Current Visit: Yes Status: Chronic Assessment and plan: With the metastasis. Continue supportive treatment. Palliative care and plan for hospice Qualifiers: Laterality: unspecified laterality Lung location: unspecified part of lung Qualified Code(s): C34.90 - Malignant neoplasm of unspecified part of unspecified bronchus or lung (4) DVT prophylaxis Current Visit: No Status: Acute Assessment and plan: Lovenox SC (5) Tobacco abuse Current Visit: No Status: Chronic Assessment and plan: On nicotine patch - Time Spent With Patient 25 - 35 minutes - Subjective Interval history: Patient is a 51-year-old male admitted for COPD exacerbation. Patient's past medical history is significant for lung cancer with remote metastasis, COPD, current tobacco smoker, hyponatremia. Vision was seen and examined. He is awake, alert, oriented 3. Shortness of breath has improved after treatment. Vitals are stable. Palliative care consult appreciated. Patient agrees for hospice. We will continue supportive treatment and plan to discharge to hospice tomorrow. - Constitutional Vitals: Temp Pulse Resp BP Pulse Ox 97.9 F 83 16 144/97 99 09/13/16 15:00 09/13/16 15:00 09/13/16 16:38 09/13/16 15:00 09/13/16 16:38 General appearance: Present: cachectic, A&O X 3 - Head Head exam: Present: atraumatic, normocephalic - Eye Eye exam: Present: PERRL, conjuntiva pink, sclera anicteric Pupils: Present: PERRL - Neck Neck exam general surgery: Present: supple, trachea midline. Absent: lymphadenopathy - Respiratory Respiratory exam: Present: CTAB. Absent: accessory muscle use, rales, rhonchi, wheezes - Cardiovascular Cardiovascular exam: Present: RRR, +S1, +S2. Absent: diastolic murmur, gallop, rubs, systolic murmur - GI/Abdominal GI/Abdominal exam: Present: normal bowel sounds, soft, no peritoneal signs. Absent: distended, tenderness - Extremities Exam Extremities exam: Present: warm, radial pulses palpable and symetrical. Absent : calf tenderness, cyanotic, pedal edema - Neurological Exam Neurological exam: Present: CN II-XII intact, oriented X3, no focal deficits. Absent: pronater drift, facial droop, speech deficit - Skin Skin exam: Present: dry, intact Internal Medicine: Result - Labs CBC & Chem 7: 09/13/16 04:15 09/13/16 11:50 Labs: Short CBC 09/13/16 Range/Units 04:15 WBC 8.0 (4.3-11.1) K/mcL Hgb 10.9 L (12.9-16.9) g/dL Hct 29.5 L (37.5-50.1) % Plt Count 267 (140-400) K/mcL Neutrophils # 7.5 (1.6-8.9) K/mcL BMP 09/13/16 09/13/16 04:15 11:50 Sodium 115 L* 118 L* Potassium 3.7 4.2 Chloride 86 L 88 L Carbon Dioxide 22 21 BUN 8 9 Creatinine 0.55 L 0.52 L Glucose 112 H 104 H Calcium 8.8 8.2 L - ABG Interpretation ABG results: PT/INR, D-dimer PT 11.4 Seconds (9.4-12.1) 09/12/16 09:08 Consult Discharge Plan - Plan Referrals: Juma French DO [Primary Care Provider] - Prescriptions: LORazepam Oral Conc [Ativan Oral Conc] 1 mg PO Q6HR PRN #15 mls PRN Reason: anxiety/agitation Morphine Oral CONC [Roxanol] 20 mg SL Q2H PRN #30 ml PRN Reason: pain or shortness of breath Morphine Sulfate [Morphine Sulfate ER] 30 mg PO BID #14 cpmp.24hr Oxycodone HCl 15 mg PO Q4H PRN #30 tablet PRN Reason: Pain
[2016-09-14] MEDS: methylPREDNISolone 125 MG/2 ML VIAL IVP SCH ×2 (04:49→12:38)
[2016-09-14] MEDS: *HR* Enoxaparin 40 MG/0.4 ML SYRINGE SQ SCH (04:49)
[2016-09-14] MEDS: Ipratropium/Albuterol Neb 3 ML IH SCH ×3 (05:12→15:13)
[2016-09-14 05:18] LABS: BUN/Creatinine Ratio 19 (6-26); Blood Urea Nitrogen 11 mg/dL (8-26); Calcium 8.5 mg/dL (8.6-10.8); Carbon Dioxide 22 mEq/L (19-29); Chloride 88 mEq/L (98-109); Glucose 112 mg/dL (70-99); Osmolality,Calculated 248 (280-300); Potassium 3.8 mEq/L (3.5-4.5); eGFR For African Americans > 60 (> 60); eGFR For Non-African Americans > 60 (> 60)
[2016-09-14 05:28] LABS: Sodium 119 mEq/L (136-145)
[2016-09-14] MEDS: Megestrol Acetate 400 MG/10 ML UDC PO SCH (09:49)
[2016-09-14] MEDS: ONDANSETRON 4 MG PO SCH (09:49)
[2016-09-14] MEDS: Nicotine 14 MG PATCH.TD24 TD SCH (09:50)
[2016-09-14] MEDS: *HR* Morphine Sulfate SR (12 HR) 30 MG TABLET.ER PO SCH (09:50)
[2016-09-14] MEDS: Sennosides 8.6 MG TABLET PO SCH (09:51)
[2016-09-14] MEDS: Budesonide/Formoterol 160/4.5 MDI IH SCH (09:58)
[2016-09-14] MEDS: *HR* OxyCODONE Immed Rel 15 MG TABLET PO PRN (13:38)
[2016-09-14 13:41] VITALS: BP 141/91
--- NOTE | 2016-09-14 14:09 | Internal Med Progress Note ---
Date of Encounter: 09/14/16 Time of Encounter: 11:00 - Assessment and plan (1) Acute exacerbation of chronic obstructive airways disease Current Visit: Yes Status: Acute Assessment and plan: Improved after treatment. We will continue palliative and supportive treatment as patient would like to pursue hospice. Wheezes improved, taper down steroid. (2) Hyponatremia Current Visit: Yes Status: Acute Assessment and plan: Improved. Patient has chronic hyponatremia and tolerated well. Will avoid fast correction. Closely monitor sodium level. (3) Lung cancer Current Visit: Yes Status: Chronic Assessment and plan: With the metastasis. Continue supportive treatment. Palliative care and plan for hospice Qualifiers: Laterality: unspecified laterality Lung location: unspecified part of lung Qualified Code(s): C34.90 - Malignant neoplasm of unspecified part of unspecified bronchus or lung (4) DVT prophylaxis Current Visit: No Status: Acute Assessment and plan: Lovenox SC (5) Tobacco abuse Current Visit: No Status: Chronic Assessment and plan: On nicotine patch - Time Spent With Patient 25 - 35 minutes - Subjective Interval history: Patient is a 51-year-old male admitted for COPD exacerbation. Patient's past medical history is significant for lung cancer with remote metastasis, COPD, current tobacco smoker, hyponatremia. Pt was seen and examined. He is awake, alert, oriented 3. Shortness of breath has improved after treatment. Vitals are stable. Palliative care consult appreciated. Patient agrees for hospice. We will continue supportive treatment and plan to discharge to hospice. Taper down steroid. - Constitutional Vitals: Temp Pulse Resp BP Pulse Ox 97.9 F 92 16 141/91 95 09/14/16 11:00 09/14/16 13:41 09/14/16 11:00 09/14/16 13:41 09/14/16 11:00 General appearance: Present: cachectic, A&O X 3 - Head Head exam: Present: atraumatic, normocephalic - Eye Eye exam: Present: PERRL, conjuntiva pink, sclera anicteric Pupils: Present: PERRL - Neck Neck exam general surgery: Present: supple, trachea midline. Absent: lymphadenopathy - Respiratory Respiratory exam: Present: CTAB. Absent: accessory muscle use, rales, rhonchi, wheezes - Cardiovascular Cardiovascular exam: Present: RRR, +S1, +S2. Absent: diastolic murmur, gallop, rubs, systolic murmur - GI/Abdominal GI/Abdominal exam: Present: normal bowel sounds, soft, no peritoneal signs. Absent: distended, tenderness - Extremities Exam Extremities exam: Present: warm, radial pulses palpable and symetrical. Absent : calf tenderness, cyanotic, pedal edema - Neurological Exam Neurological exam: Present: CN II-XII intact, oriented X3, no focal deficits. Absent: pronater drift, facial droop, speech deficit - Skin Skin exam: Present: dry, intact Internal Medicine: Result - Labs CBC & Chem 7: 09/13/16 04:15 09/14/16 05:00 Labs: BMP 09/14/16 05:00 Sodium 119 L* Potassium 3.8 Chloride 88 L Carbon Dioxide 22 BUN 11 Creatinine 0.57 L Glucose 112 H Calcium 8.5 L - ABG Interpretation ABG results: PT/INR, D-dimer PT 11.4 Seconds (9.4-12.1) 09/12/16 09:08 Consult Discharge Plan - Plan Referrals: Juma French DO [Primary Care Provider] - Prescriptions: LORazepam Oral Conc [Ativan Oral Conc] 1 mg PO Q6HR PRN #15 mls PRN Reason: anxiety/agitation Morphine Oral CONC [Roxanol] 20 mg SL Q2H PRN #30 ml PRN Reason: pain or shortness of breath Morphine Sulfate [Morphine Sulfate ER] 30 mg PO BID #14 cpmp.24hr Oxycodone HCl 15 mg PO Q4H PRN #30 tablet PRN Reason: Pain
--- NOTE | 2016-09-14 14:59 | Discharge Summary ---
Date of Encounter: 09/14/16 Time of Encounter: 13:00 - Discharge Diagnosis (1) Acute exacerbation of chronic obstructive airways disease Priority: Primary Status: Acute (2) Hyponatremia Priority: Secondary Status: Acute (3) Lung cancer Priority: Secondary Status: Chronic Qualifiers: Laterality: unspecified laterality Lung location: unspecified part of lung Qualified Code(s): C34.90 - Malignant neoplasm of unspecified part of unspecified bronchus or lung (4) DVT prophylaxis Priority: Secondary Status: Acute (5) Tobacco abuse Priority: Secondary Status: Chronic - Discharge Medications Prescriptions: LORazepam Oral Conc [Ativan Oral Conc] 1 mg PO Q6HR PRN #15 mls PRN Reason: anxiety/agitation Morphine Oral CONC [Roxanol] 20 mg SL Q2H PRN #30 ml PRN Reason: pain or shortness of breath Morphine Sulfate [Morphine Sulfate ER] 30 mg PO BID #14 cpmp.24hr Oxycodone HCl 15 mg PO Q4H PRN #30 tablet PRN Reason: Pain Home Medications: Docusate [Colace] 100 mg PO BID #60 capsule 04/01/16 [Rx] Ondansetron [Zofran] 4 mg PO Q8HR #90 tablet 06/23/16 [Rx] Albuterol Sulfate [Albuterol Inhaler] 1 puff IH Q4H PRN #1 puff 06/26/16 [Rx] ClonazePAM [Klonopin] 0.5 mg PO BID PRN #14 tablet 07/15/16 [Rx] Zolpidem [Ambien] 10 mg PO HS #30 tablet 08/05/16 [Rx] Prochlorperazine Maleate [Compazine] 10 mg PO Q8HR #90 tablet 08/06/16 [Rx] Omeprazole [PriLOSEC] 40 mg PO DAILY 08/16/16 [History] Ipratropium/Albuterol Neb [Duoneb] 3 ml IH [id number] 30 Days 08/18/16 [Rx] Potassium Chloride 20 meq PO DAILY #30 tab.er.prt 08/18/16 [Rx] Budesonide/Formoterol 160/4.5 [Symbicort 160/4.5] 2 puff IH BID 08/24/16 [ History] Sennosides [Senna] 8.6 tab PO BID #60 tablet 08/28/16 [Rx] Megestrol Acetate [Megace] 800 mg PO DAILY 09/01/16 [History] Furosemide [Lasix] 40 mg PO QAM #20 tablet 09/05/16 [Rx] Metoprolol [Lopressor] 12.5 mg PO BID #30 tablet 09/05/16 [Rx] PredniSONE 40 mg PO DAILY #7 tablet 09/05/16 [Rx] Sodium Chloride 1 gm PO BID #30 tablet 09/05/16 [Rx] Oxygen 3 l .ROUTE AD 09/12/16 [History] LORazepam Oral Conc [Ativan Oral Conc] 1 mg PO Q6HR PRN #15 mls 09/13/16 [Rx] Morphine Oral CONC [Roxanol] 20 mg SL Q2H PRN #30 ml 09/13/16 [Rx] Morphine Sulfate [Morphine Sulfate ER] 30 mg PO BID #14 cpmp.24hr 09/13/16 [Rx] Oxycodone HCl 15 mg PO Q4H PRN #30 tablet 09/13/16 [Rx] PredniSONE 40 mg PO DAILY #20 tablet 09/14/16 [Rx] Allergies/Adverse Reactions: Allergies No Known Allergies Allergy (Verified 07/14/16 08:10) Date of admission: 09/12/16 11:54 Primary care physician: Juma French DO Consults: 09/12/16 13:16 Consult to Ceo & Board Director [CONS] Routine Reason for SW Consult: possible home health 09/12/16 14:28 Consult to Nephrology [CONS] Routine Consulting Provider: Kidney Dionne/GALINA/MARIANO/BETHEL Reason for Consult: hyponatremia Time Notified: 14:29 Call Completed: No 09/12/16 15:10 Consult to Palliative Care [CONS] Routine Comment: Consulting Provider: Palliative [facility] [place] Discharging clinician: Yaritza Kenney Anticipated date of discharge: 09/14/16 - Patient Status Disposition: Hospice - Home Condition: Fair Functional capacity at discharge: independent ambulation Overall status at discharge: patient is progressing back to baseline - Discharge Instructions Follow Up With: Juma French DO [Primary Care Provider] - Forms: ED Satisfaction Letter - Diet and Activity Activity: as per physical therapy Diet: other (Fluid restriction 1500 mL per day) Interval History: Mr. 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 Patient was discharged from this hospital on 09/05/16 for hyponatremia COPD exacerbation and pneumonia. Patient began to experience increased shortness of breath, wheezing he has a chronic cough last night sustaining oxygen as well as breathing treatments did not improve his symptoms. He was unable to stand and had fallen approximately 3 times denies hitting his head. He denies any fevers chills vomiting diarrhea abdominal or chest pain This a.m. shortness of breath continued and he presented to the ER for evaluation. According to ER records upon presentation patient had poor airway movement with some wheezing. He was given breathing treatments as well as steroids. Lab work revealed hyponatremia with sodium of 111 potassium 3.1 and no leukocytosis and chest x-ray with no signs of pneumonia. Patient was admitted for further workup evaluation. Presently patient appears weak and frail he denies any shortness of breath chest pain or discomfort at this time. He is on 4 L nasal cannula maintaining his oxygen saturation greater than 97%. Hospital course: Mr. Locke is a 51 year old male admitted as COPD exacerbation. He was treated with steroid and bronchodilator. After treatment of his symptoms has improved. No shortness of breath anymore. Patient has a lung cancer with remote metastasis, palliative care saw patient and home hospice has been arranged. Patient will discharge home and continue home hospice care. I saw and examined the patient today. He is awake alert, oriented 3. In no acute respiratory distress. Lungs are clear. Vitals are stable, oxygen saturation 95% on 3 L nasal cannula oxygen. Patient has home oxygen already. His is stable to discharge home with home hospice. Home hospice is not setup until tomorrow, patient's mom will stay with him overnight. Time spent discussing smoking cessation with patient: 3 to 10 minutes - Time Spent with Patient Total time spent providing and/or coordinating discharge services: 40 minutes. Greater than 30 minutes - Constitutional Vitals: Temp Pulse Resp BP Pulse Ox 97.9 F 92 16 141/91 95 09/14/16 11:00 09/14/16 13:41 09/14/16 11:00 09/14/16 13:41 09/14/16 11:00 General appearance: Present: cachectic, A&O X 3, answers questions appropriately - Head Head exam: Present: atraumatic, normocephalic - Eye Eye exam: Present: PERRL, conjuntiva pink, sclera anicteric Pupils: Present: PERRL - Neck Neck exam general surgery: Present: supple, trachea midline. Absent: lymphadenopathy - Respiratory Respiratory exam: Present: CTAB. Absent: accessory muscle use, rales, rhonchi, wheezes - Cardiovascular Cardiovascular exam: Present: RRR, +S1, +S2. Absent: diastolic murmur, gallop, rubs, systolic murmur - GI/Abdominal GI/Abdominal exam: Present: normal bowel sounds, soft, no peritoneal signs. Absent: distended, tenderness - Extremities Exam Extremities exam: Present: warm, radial pulses palpable and symetrical. Absent : calf tenderness, cyanotic, pedal edema - Neurological Exam Neurological exam: Present: CN II-XII intact, oriented X3, no focal deficits. Absent: pronater drift, facial droop, speech deficit - Skin Skin exam: Present: dry, intact
--- NOTE | 2016-09-14 15:07 | Physician Discharge Referral ---
Home Health/Hosp Referral Info Transfer to: Hospice Provider in Charge Post Discharge: [employer] - Diagnosis (1) Acute exacerbation of chronic obstructive airways disease Status: Acute (2) Hyponatremia Status: Acute (3) Lung cancer Status: Chronic (4) DVT prophylaxis Status: Acute (5) Tobacco abuse Status: Chronic - Respiratory Orders Oxygen / L per min (3) Smoking Cessation: Smoking cessation has been advised. For more information, call the [employer] Quit Line at 6-076-PITT-NOW. - Diet/Nutrition Diet/Nutrition Orders: Regular (Follow restriction 1500 mL per day) - Services Needed Following services are medically necessary services: Nursing, Home Health Aide - Transfer Medications Prescriptions: LORazepam Oral Conc [Ativan Oral Conc] 1 mg PO Q6HR PRN #15 mls PRN Reason: anxiety/agitation Morphine Oral CONC [Roxanol] 20 mg SL Q2H PRN #30 ml PRN Reason: pain or shortness of breath Morphine Sulfate [Morphine Sulfate ER] 30 mg PO BID #14 cpmp.24hr Oxycodone HCl 15 mg PO Q4H PRN #30 tablet PRN Reason: Pain PredniSONE 40 mg PO DAILY #20 tablet Home Medications: Docusate [Colace] 100 mg PO BID #60 capsule 04/01/16 [Rx] Ondansetron [Zofran] 4 mg PO Q8HR #90 tablet 06/23/16 [Rx] Albuterol Sulfate [Albuterol Inhaler] 1 puff IH Q4H PRN #1 puff 06/26/16 [Rx] ClonazePAM [Klonopin] 0.5 mg PO BID PRN #14 tablet 07/15/16 [Rx] Zolpidem [Ambien] 10 mg PO HS #30 tablet 08/05/16 [Rx] Prochlorperazine Maleate [Compazine] 10 mg PO Q8HR #90 tablet 08/06/16 [Rx] Omeprazole [PriLOSEC] 40 mg PO DAILY 08/16/16 [History] Ipratropium/Albuterol Neb [Duoneb] 3 ml IH [id number] 30 Days 08/18/16 [Rx] Potassium Chloride 20 meq PO DAILY #30 tab.er.prt 08/18/16 [Rx] Budesonide/Formoterol 160/4.5 [Symbicort 160/4.5] 2 puff IH BID 08/24/16 [ History] Sennosides [Senna] 8.6 tab PO BID #60 tablet 08/28/16 [Rx] Megestrol Acetate [Megace] 800 mg PO DAILY 09/01/16 [History] Furosemide [Lasix] 40 mg PO QAM #20 tablet 09/05/16 [Rx] Metoprolol [Lopressor] 12.5 mg PO BID #30 tablet 09/05/16 [Rx] PredniSONE 40 mg PO DAILY #7 tablet 09/05/16 [Rx] Sodium Chloride 1 gm PO BID #30 tablet 09/05/16 [Rx] Oxygen 3 l .ROUTE AD 09/12/16 [History] LORazepam Oral Conc [Ativan Oral Conc] 1 mg PO Q6HR PRN #15 mls 09/13/16 [Rx] Morphine Oral CONC [Roxanol] 20 mg SL Q2H PRN #30 ml 09/13/16 [Rx] Morphine Sulfate [Morphine Sulfate ER] 30 mg PO BID #14 cpmp.24hr 09/13/16 [Rx] Oxycodone HCl 15 mg PO Q4H PRN #30 tablet 09/13/16 [Rx] PredniSONE 40 mg PO DAILY #20 tablet 09/14/16 [Rx] Allergies/Adverse Reactions: Allergies No Known Allergies Allergy (Verified 07/14/16 08:10) Certification: Further, I certify that my clinical findings support that this patient is homebound (i.e. absences from home require considerable and taxing effort and are for medical reasons or [employer]an [employer] services or infrequently or short duration when for other reasons) because: Homebound Reason: Patient requires assistance of a person or device to safely leave home Attestation: My signature below is to certify that this patient is under my care and that I, or nurse practitioner, or a physician's professional nursing assistant working with me, has a face-to -face encounter with this patient.
[2016-09-14] MEDS ORDERED: MethylPREDNISolone 40 MG/ML VIAL IVP SCH (21:00)
--- NOTE | 2016-09-15 13:18 | Electrocardiograph Report ---
[place] [id number] Test Date: 2016-09-12 Pat Name: Ashok Locke Department: 103 Room: [facility] Gender: M Anesthesiology Fellow: : 1965 Requested By: Pradeep Mcdonald Order Number: [id number] [place] MD: Alverto Duran MD Measurements Intervals [place] Rate: 97 P: 80 IA: 159 QRS: -23 QRSD: 105 T: 64 QT: 345 QTc: 399 Interpretive Statements SINUS RHYTHM BORDERLINE LEFT AXIS DEVIATION Electronically Signed On 09-15-2016 13:16:58 EDT by Alverto Duran MD
== END 2016-09-14 18:30 | disposition hospice, home (50) ==
LOC: EMEROO 08:38 → 2NENU 08:38
PROVIDERS: ADMIT Internal Medicine; ATTEND Internal Medicine